=== PATIENT | female | born 1935 | race Caucasian/White ===

== ENCOUNTER 2022-02-07 15:19 | Emergency (ER) | payer MEDICARE ==
--- NOTE | 2022-02-07 16:06 | ERPHSYRPT ---
- History of Present Illness Time Seen by Provider: 02/07/22 15:30 Source: patient Exam Limitations: no limitations Patient Subjective Stated Complaint: Fall Triage Nursing Assessment: Patient brought back to ED per w/c and transferred to bed per self. Patient A+O X3. Patient's skin pink, warm and dry. Patient states she was going down 2 stairs and lost her footing and held onto the porch post and slid down and sat on her buttocks. Patient denies hitting head. Patient complains of right lower back/buttock and leg pain 09/14. No visible bruising or trauma noted. Physician History: Patient 36-year-old female presents to our ED with right posterior hip pain. Patient states she was descending a flight of stairs yesterday. Patient lost her footing held onto the banister and sat herself down onto the right side of her hip. Patient had no pain yesterday however she awoke this morning with soreness to her right posterior hip. Pain described as an ache. No radiation. Pain worse upon weightbearing. Pain improves with rest. Patient took morphine pill at home which is prescribed for her for chronic pain. No BHT or LOC. No neck pain. Cervical spine cleared clinically. Symptoms are mild to moderate in intensity. Patient voices no other complaints or concerns at this time. Portions of this note were created with voice recognition technology. There may be grammatical, spelling, punctuation or sound alike errors Timing/Duration: yesterday Severity: moderate Modifying Factors: Improves With: movement (Pain worse with movement or weightbearing.) Associated Symptoms: denies symptoms Allergies/Adverse Reactions: Penicillins Allergy (Verified 02/07/22 15:34) Hx Influenza Vaccination/Date Given: No Hx Pneumococcal Vaccination/Date Given: No Immunizations Up to Date: Yes Travel Risk - International Travel Have you traveled outside of the country in past 3 weeks: No - Coronavirus Screening Are you exhibiting any of the following symptoms?: No Close contact with a COVID-19 positive Pt in past 14-21 Days: No - Vaccine Status Have you recieved a Covid-19 vaccination: Yes 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 - Vaccination Dates Date of 2cond Vaccination (if applicable): na - Review of Systems Constitutional: No Symptoms, No Fever, No Chills Eyes: No Symptoms Ears, Nose, & Throat: No Symptoms Respiratory: No Symptoms, No Cough, No Dyspnea Cardiac: No Symptoms, No Chest Pain, No Edema, No Syncope Abdominal/Gastrointestinal: No Symptoms, No Abdominal Pain, No Nausea, No Vomiting, No Diarrhea Genitourinary Symptoms: No Symptoms, No Dysuria Musculoskeletal: No Symptoms, No Back Pain, No Neck Pain Skin: No Symptoms, No Rash Neurological: No Symptoms, No Dizziness, No Focal Weakness, No Sensory Changes Psychological: No Symptoms Endocrine: No Symptoms Hematologic/Lymphatic: No Symptoms Immunological/Allergic: No Symptoms All Other Systems: Reviewed and Negative - Past Medical History Neurological History: No Pertinent History Cardiac History: High Cholesterol, Hypertension Respiratory History: No Pertinent History Endocrine Medical History: No Pertinent History Musculoskeletal History: Degenerative Disk Disease, Osteoarthritis Other Medical History: 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 CURRENTLY NO SYMPTOMS. SX HX: HYSTERECTOMY - Social History Smoking Status: Former smoker Exposure to second hand smoke: No Drug Use: none Patient Lives Alone: Yes - Nursing Vital Signs Nursing Vital Signs: Initial Vital Signs Temperature 97.0 F 02/07/22 15:22 Pulse Rate 83 02/07/22 15:22 Respiratory Rate 18 02/07/22 15:22 Blood Pressure 230/107 02/07/22 15:22 O2 Sat by Pulse Oximetry 97 02/07/22 15:22 Pain Scale Pain Intensity 3 - Physical Exam General Appearance: no apparent distress, alert Eye Exam: PERRL/EOMI, eyes nml inspection Ears, Nose, Throat Exam: normal ENT inspection, TMs normal, pharynx normal, moist mucous membranes Neck Exam: normal inspection, non-tender, supple, full range of motion Respiratory Exam: normal breath sounds, lungs clear, airway intact, No respiratory distress Cardiovascular Exam: regular rate/rhythm, normal heart sounds, normal peripheral pulses Gastrointestinal/Abdomen Exam: soft, normal bowel sounds, No tenderness, No mass Back Exam: normal inspection, normal range of motion, No CVA tenderness, No vertebral tenderness Extremity Exam: normal inspection, normal range of motion, pelvis stable, other (Tenderness to palpation right posterior lateral buttock. Right lower extremities neurovascular intact distally. Compartments are soft. Cap refill less than 2 seconds.) Neurologic Exam: alert, oriented x 3, cooperative, normal mood/affect, nml cerebellar function, nml station & gait, sensation nml, No motor deficits Skin Exam: normal color, warm, dry, No rash Lymphatic Exam: No adenopathy SpO2 Interpretation: normal SpO2: 97 O2 Delivery: Room Air - Course Nursing assessment & vital signs reviewed: Yes - Radiology Exams Hip X-ray Interpretation: Interpreted by me (No fractures or dislocations. No soft tissue abnormalities) Ordered Tests: Active Orders 24 hr Category Date Time Status HIP UNI (2V) INCL PEL IF DONE Stat Exams 02/07/22 15:58 Taken - Progress Progress: improved Progress Note: Patient reassessed. Patient resting comfortably. No active pain during reevaluation. X-rays negative for fracture dislocations. No soft tissue abnormalities. Osteopenia observed. Patient agrees to follow-up with within 48 hours for evaluation. Formal radiology read will be performed tomorrow morning. Patient voices no other complaints or concerns at this time. Patient states she is ready for discharge. Portions of this note were created with voice recognition technology. There may be grammatical, spelling, punctuation or sound alike errors 02/07/22 16:57 Counseled pt/family regarding: diagnosis, need for follow-up, rad results - Departure Departure Disposition: Home Clinical Impression: Fall, Right hip pain, Muscle contusion Condition: Stable Critical Care Time: No Referrals: BONIFACIO ELLSWORTH MD [Primary Care Provider] - Follow up/PCP as directed Additional Instructions: Discharge/Care Plan NESSA PEARSON was seen on 02/07/22 in the Emergency Room. The patient was counseled regarding Diagnosis,Lab results, Imaging studies, need for follow up and when to return to the Emergency Room. Prescriptions given: Discharge Note I have spoken with the patient and/or caregivers. I have explained the patient's condition, diagnosis and treatment plan based on the information available to me at this time. I have answered the patient's and/or caregiver's questions and addressed any concerns. The patient and/or caregivers have as good understanding of the patient's diagnosis, condition and treatment plan as can be expected at this point. The vital signs have been stable. The patient's condition is stable and appropriate for discharge from the emergency department. The patient will pursue further outpatient evaluation with the primary care physician or other designated or consulting physician as outlined in the discharge instructions. The patient and/or caregivers are agreeable to this plan of care and follow-up instructions have been explained in detail. The patient and/or caregivers have received these instruction. The patient/and or caregivers are aware that any significant change in condition or worsening of symptoms should prompt an immediate return to this or the closest emergency department or call 911.
--- NOTE | 2022-02-07 16:58 | XRAY ---
Indication: Pain following fall. Comparison: AP pelvis April 12, 2017. AP pelvis and 2 view right hip again demonstrates osteopenia, mild bilateral hip degenerative joint space narrowing, mild lower lumbar degenerative changes, and minimal vascular calcifications. No new/acute bony, articular, or soft tissue abnormalities.
[2022-02-07] MEDS ORDERED: COREG 12.5 MG ONE (17:43)
[2022-02-07 17:53] LABS: Absolute Neutrophil Ct (ANC) 4.23 x10^3/uL (1.4-6.9); Basophil (Absolute #) 0.03 x10^3/uL (0-0.4); Eosinophil % 2.7 % (0.00-5.0); Eosinophil (Absolute #) 0.19 x10^3/uL (0-0.5); Hematocrit 47.5 % (35-47); Hemoglobin 15.5 g/dL (12.0-16.0); Lymphocyte (Absolute #) 2.08 x10^3/uL (1.0-4.6); Lymphocytes % 29.1 % (24.0-44.0); Mean Cell Volume 93.7 fL (78-100); Mean Corpuscular Hemoglobin 30.6 pg (26-32); Mean Corpuscular Hgb Concent. 32.6 g/dL (32-36); Mean Platelet Volume 9.4 fL (7.5-11.0); Monocyte (Absolute #) 0.62 x10^3/uL (0.0-1.3); Monocytes % 8.7 % (0.0-12.0); Platelet Count 194 x10^3/uL (150-450); Red Blood Count 5.07 x10^6/uL (4.1-5.4); Red Cell Distribution Width 14.6 % (11.5-14.0); White Blood Count 7.2 x10^3/uL (4.0-10.5)
[2022-02-07] MEDS ORDERED: COREG 12.5 MG PO ONE (17:57)
[2022-02-07 18:14] LABS: ALBUMIN 3.8 g/dL (3.5-5.0); ALKALINE PHOSPHATASE 88 U/L (38-126); ANION GAP 11.4 MEQ/L (5-15); BLOOD UREA NITROGEN 25 mg/dL (7-17); CHLORIDE 104 mmol/L (98-107); Calcium 8.8 mg/dL (8.4-10.2); Carbon Dioxide 29 mmol/L (22-30); Creatinine 1 0.64 mg/dL (0.52-1.04); EST GLOMERULAR FILTRATION RATE > 60.0 ML/MIN; Glucose 102 mg/dL (74-106); Potassium 4.4 mmol/L (3.5-5.1); SGOT/AST 26 U/L (14-36); SGPT/ALT 18 U/L (0-35); SODIUM 139 mmol/L (137-145); Total Protein 6.9 g/dL (6.3-8.2)
[2022-02-07 19:03] VITALS: BP 180/100; PULSE 74; O2SAT 98
== END 2022-02-07 19:19 | disposition home or self-care (01) ==
LOC: ED 15:19
DX: S70.01XA Contusion of right hip, initial encounter (principal); W10.9XXA Fall (on) (from) unspecified stairs and steps, initial encounter; M25.551 Pain in right hip; E78.5 Hyperlipidemia, unspecified; I10 Essential (primary) hypertension; Z79.891 Long term (current) use of opiate analgesic
CPT/HCPCS: 36415; 73502; 80053; 84484; 85025; 94760; 99283; A9270-GY

== ENCOUNTER 2022-11-05 16:16 | Emergency (ER) | payer MEDICARE ==
--- NOTE | 2022-11-05 16:20 | ERPHSYRPT ---
- History of Present Illness Time Seen by Provider: 11/05/22 16:20 Source: patient, EMS Exam Limitations: no limitations Physician History: This is an 86-year-old white female patient who was brought to the emergency room by the ambulance service. The paramedics provided additional history. Patient states that she just did not lift up her legs enough and ended up tripping and falling onto her face and bilateral knees. Patient does see Dr. Blanc in the pain clinic. Patient is currently on chemotherapy. She denies chest pain she has had no dizziness she did not lose consciousness. Patient has a history of hyperlipidemia, hypertension, degenerative disc disease and chronic low back pain with sciatica. Occurred: just prior to arrival Reason for Fall: tripped Injuries/Pain Location: head, face, lower extremity (Bilateral anterior knees) Loss of Consciousness: no loss of consciousness Severity of Pain-Max: moderate Severity of Pain-Current: moderate Modifying Factors: Improves With: movement Associated Symptoms (Fall): extremity injury (Bilateral anterior knees), No neck pain Allergies/Adverse Reactions: Penicillins Allergy (Verified 11/05/22 16:38) Hx Influenza Vaccination/Date Given: No Hx Pneumococcal Vaccination/Date Given: No Travel Risk - International Travel Have you traveled outside of the country in past 3 weeks: No - Coronavirus Screening Are you exhibiting any of the following symptoms?: No Close contact with a COVID-19 positive Pt in past 14-21 Days: No - Vaccine Status Have you recieved a Covid-19 vaccination: Yes 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 In addition abrasion bilateral anterior knees. 1 cm nasal bridge laceration intact) Neurological: No Symptoms Psychological: No Symptoms Endocrine: No Symptoms Hematologic/Lymphatic: No Symptoms Immunological/Allergic: No Symptoms All Other Systems: Reviewed and Negative - Past Medical History Pertinent Past Medical History: Yes Neurological History: No Pertinent History Cardiac History: High Cholesterol, Hypertension Respiratory History: No Pertinent History Endocrine Medical History: No Pertinent History Musculoskeletal History: Degenerative Disk Disease, Osteoarthritis Other Medical History: 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 CURRENTLY NO SYMPTOMS. SX HX: HYSTERECTOMY - Social History Smoking Status: Former smoker Exposure to second hand smoke: No Drug Use: none Patient Lives Alone: Yes - Nursing Vital Signs Nursing Vital Signs: Initial Vital Signs Temperature 97.7 F 11/05/22 16:34 Pulse Rate 81 11/05/22 16:34 Respiratory Rate 18 11/05/22 16:34 Blood Pressure 203/112 11/05/22 16:34 O2 Sat by Pulse Oximetry 97 11/05/22 16:34 Pain Scale Pain Intensity 5 - [place] Coma Score Best Eye Response (Gabbie): (4) open spontaneously Best Verbal Response ([place]): (5) oriented Best Motor Response ([place]): (6) obeys commands [place] Total: 15 - Physical Exam General Appearance: no apparent distress, alert Head Injury: lacerations (1 cm intact well approximated vertical nasal bridge laceration), tenderness (Areas of abrasion on the forehead nasal bridge and chin abrasion) Eye Exam: PERRL/EOMI, eyes nml inspection ENT Exam: airway nml, other (See above) Neck Exam: supple, trachea midline, full range of motion, normal alignment, normal inspection Respiratory/Chest Exam: normal breath sounds, No chest tenderness, No respiratory distress, No ecchymosis, No crepitus Cardiovascular Exam: normal heart sounds, regular rate/rhythm Gastrointestinal Exam: soft, normal bowel sounds, No tenderness Rectal Exam: not done Back Exam: normal inspection, normal range of motion, No CVA tenderness Extremity Exam: normal range of motion, capillary refill <3 sec, tenderness (Skin abrasions bilateral anterior knees) Neurologic Exam: alert, oriented x 3, cooperative, radio division lieutenant II-XII nml as tested, normal mood/affect, sensation nml Skin Exam: abrasion (See above location and description) SpO2 Interpretation: normal O2 Delivery: Room Air Procedures - Laceration/Wound Repair Face Time of Procedure: 18:56 Wound Location: face Wound Length (cm): 1 Wound's Depth, Shape: linear Wound Explored: clean (No foreign body noted. Evaluation was performed to the base in a bloodless field) Irrigated: Yes Hibiclens Prep: Yes Wound Repaired With: Steri-strips, Dermabond - Course Nursing assessment & vital signs reviewed: Yes Ordered Tests: Active Orders 24 hr Category Date Time Status Wound Care STAT Care 11/05/22 16:45 Active FACIAL BONES WO CONTRAST [CT] Stat Exams 11/05/22 16:43 Taken HEAD WITHOUT CONTRAST [CT] Stat Exams 11/05/22 16:43 Taken KNEE (1 OR 2 VIEW) Stat Exams 11/05/22 16:44 Taken KNEE (1 OR 2 VIEW) Stat Exams 11/05/22 16:44 Taken Medication Summary Discontinued Medications Generic Name Dose Route Start Last Admin Trade Name Liberty PRN Reason Stop Dose Admin Morphine Sulfate 4 mg 11/05/22 18:12 11/05/22 18:20 Morphine Sulfate 4 Mg/Ml Injection IM 11/05/22 18:13 4 mg STAT ONE Administration Morphine Sulfate Confirm 11/05/22 18:17 Morphine Sulfate 4 Mg/Ml Injection Administered 11/05/22 18:18 Dose 4 mg .ROUTE .STK-MED ONE Ondansetron HCl 4 mg 11/05/22 18:12 11/05/22 18:19 Zofran 4 Mg/Udtablet Orally Disintegrating PO 11/05/22 18:13 4 mg STAT ONE Administration Ondansetron HCl Confirm 11/05/22 18:16 Zofran 4 Mg/Udtablet Orally Disintegrating Administered 11/05/22 18:17 Dose 4 mg .ROUTE .STK-MED ONE - Progress Progress: improved, pain not gone completely, re-examined Progress Note: 11/05/22 18:13 X-ray left knee interpreted by me. No acute fracture or dislocation. X-ray right knee interpreted by me. No acute fracture or dislocation. 11/05/22 18:44 CT scan of the head shows no acute intracranial abnormality. There was motion artifact present. CAT scan of the facial bones shows no acute facial bone fractures. 11/05/22 18:53 This patient's level of medical complexity is moderate. This is based on the patient's past medical history, review of medication list, review of medication allergy list, history of present illness and findings on physical examination. She had to have intervention of the nasal laceration. We ordered CAT scan of the head and of the face. We also ordered x-rays of both knees. These were both reviewed and interpreted by me as above. Patient has morphine medication at home. We have provided her with morphine injection here in the hospital. However she can use her outpatient pain medication. We will send a prescription for Keflex home with her and wound care instructions. Counseled pt/family regarding: diagnosis, need for follow-up, rad results Medical Desision Making - Discussion of managment Reviewed:: Test results Agreed on:: Treatment plan, need for follow-up - Diagnostic Testing Diagnostic test were ordered, analyzed, and reviewed by me: Yes Radiological Interpretation: Interpreted by me, Reviewed by me, Teleradiologist Report - Risk of complications The pt has a mod risk of morbidity or mortality based on: Need for prescription drug management - Departure Departure Disposition: Home Clinical Impression: Fall, Nasal laceration, Abrasions of multiple sites Condition: Stable Critical Care Time: No Referrals: BONIFACIO ELLSWORTH MD [Primary Care Provider] - Follow up/PCP as directed Instructions: Contusion (DC), Preventing Falls in Older Adults Additional Instructions: Keep Steri-Strips laceration repair site dry for 24 hours. After 24 hours may wash all the sites daily thereafter. Apply antibiotic ointment of choice to all abrasions sites once a day. Follow-up with your primary care provider for further evaluation and management within the next 5 to 7 days. Prescriptions: Cephalexin Mh 500 mg [Keflex 500 mg] 500 mg PO TID #21 cap
[2022-11-05] MEDS ORDERED: ZOFRAN ODT 4 MG PO ONE (18:12)
[2022-11-05] MEDS ORDERED: MORPHINE SULFATE 4 MG INJ IM ONE (18:12)
[2022-11-05] MEDS ORDERED: ZOFRAN ODT 4 MG ONE (18:16)
[2022-11-05] MEDS ORDERED: MORPHINE SULFATE 4 MG INJ ONE (18:17)
[2022-11-05 18:44] VITALS: BP 154/107; PULSE 76; O2SAT 96
--- NOTE | 2022-11-06 08:29 | XRAY ---
Indication: Status post fall. Multiple contiguous axial images obtained through the head without contrast. Comparison: None Mild motion artifact throughout limits exam. Age-appropriate global atrophy, mild periventricular degenerative micro-ischemia bilaterally, and remote lacunar infarct right basal ganglia. No gross acute intracranial hemorrhage, abnormal extra-axial fluid collection, or mass effect. Fourth ventricle is midline without hydrocephalus. Bony calvarium grossly intact. Visualized paranasal sinuses and mastoid air cells are clear. Impression: Motion artifact. Grossly nonacute senile brain with remote lacunar infarct right basal ganglia.
--- NOTE | 2022-11-06 08:31 | XRAY ---
Indication: Status post fall. Multiple contiguous axial images obtained through the facial bones. Sagittal and coronal reformatted images obtained. Comparison: None Patient is edentulous. Mild left TMJ degenerative changes. No acute fracture, suspicious bony lesions, or right hepatic foreign body. Orbits including roof, lees, and floors are intact. Paranasal sinuses and nasal passages are clear. Visualized noncontrasted soft tissues demonstrates moderate bilateral carotid calcifications. Visualized cervical spine intact with mild multilevel degenerative changes. Impression: Left TMJ and cervical degenerative changes. Remaining CT facial bones negative.
--- NOTE | 2022-11-06 08:33 | XRAY ---
Indication: Status post fall. Comparison: None 2 view left knee demonstrates osteopenia, minimal medial joint space narrowing, tiny patella spurring, tiny nonspecific effusion, anterior soft tissue swelling, and minimal scattered vascular calcifications. No other bony, articular, or soft tissue abnormalities.
--- NOTE | 2022-11-06 08:33 | XRAY ---
Indication: Status post fall. Comparison: None 2 view right knee demonstrates osteopenia, minimal medial joint space narrowing, tiny patella spurring, tiny nonspecific effusion, and mild scattered vascular calcifications. No other bony, articular, or soft tissue abnormalities.
== END 2022-11-05 19:01 | disposition home or self-care (01) ==
LOC: ED 16:16
DX: S01.21XA Laceration without foreign body of nose, initial encounter (principal); S00.81XA Abrasion of other part of head, initial encounter; S80.212A Abrasion, left knee, initial encounter; S80.211A Abrasion, right knee, initial encounter; W01.0XXA Fall on same level from slipping, tripping and stumbling without subsequent striking against object, initial encounter; E78.5 Hyperlipidemia, unspecified; I10 Essential (primary) hypertension; Z79.891 Long term (current) use of opiate analgesic
CPT/HCPCS: 12011; 70450; 70486; 73560; 96372; 99284; J2270; Q0162

== ENCOUNTER 2023-03-05 19:23 | Emergency (ER) | payer MEDICARE ==
[2023-03-05 20:20] VITALS: TEMP 97.6
[2023-03-05] MEDS ORDERED: Sodium Chloride 0.9% 1000 ML 1,000 ML ONE ×2 (21:05→22:15)
[2023-03-05] MEDS: Sodium Chloride 0.9% 1000 ML 1,000 ML IV STA (21:11)
[2023-03-05 21:12] LABS: Absolute Neutrophil Ct (ANC) 1.73 x10^3/uL (1.4-6.9); BASOPHIL % 0.7 % (0.0-0.4); Basophil (Absolute #) 0.03 x10^3/uL (0-0.4); Eosinophil % 6.9 % (0.00-5.0); Hematocrit 41.8 % (35-47); Hemoglobin 13.3 g/dL (12.0-16.0); Lymphocyte (Absolute #) 1.63 x10^3/uL (1.0-4.6); Lymphocytes % 37.6 % (24.0-44.0); Mean Cell Volume 89.1 fL (78-100); Mean Corpuscular Hemoglobin 28.4 pg (26-32); Mean Corpuscular Hgb Concent. 31.8 g/dL (32-36); Mean Platelet Volume 9.3 fL (7.5-11.0); Monocyte (Absolute #) 0.64 x10^3/uL (0.0-1.3); Monocytes % 14.8 % (0.0-12.0); Platelet Count 233 x10^3/uL (150-450); Red Blood Count 4.69 x10^6/uL (4.1-5.4); White Blood Count 4.3 x10^3/uL (4.0-10.5)
[2023-03-05 21:21] LABS: ALBUMIN 3.8 g/dL (3.5-5.0); ALKALINE PHOSPHATASE 67 U/L (38-126); BLOOD UREA NITROGEN 32 mg/dL (7-17); CHLORIDE 98 mmol/L (98-107); Calcium 8.9 mg/dL (8.4-10.2); Carbon Dioxide 27 mmol/L (22-30); Creatinine 1 0.86 mg/dL (0.52-1.04); EST GLOMERULAR FILTRATION RATE > 60.0 ML/MIN; Glucose 103 mg/dL (74-106); Potassium 4.7 mmol/L (3.5-5.1); SGOT/AST 36 U/L (14-36); SGPT/ALT 18 U/L (0-35); SODIUM 135 mmol/L (137-145); Total Protein 6.8 g/dL (6.3-8.2)
--- NOTE | 2023-03-05 21:52 | ERPHSYRPT ---
- History of Present Illness Time Seen by Provider: 03/05/23 20:20 Source: patient Exam Limitations: no limitations Patient Subjective Stated Complaint: Pt accompanied by daughter in law who reports pt is getting immunotherapy every three weeks for bladder cancer and for approx 2 weeks pt has not ate or drank; family is concerned pt is dehydrated. Pt reports nothing taste good and she does not have an appetite. Triage Nursing Assessment: Pt alert and oriented x3. No apparent respiratory distress. Wheeled to ED cot by ER staff and transfered from chair to cot with assist x1. Skin w/p/d. Accompanied to ED exam room by daughter in law. No lower extremity edema. Physician History: Patient is an 87-year-old female with a history of bladder cancer on chemo therapy/immunotherapy every 3 weeks. Presents to our ED for evaluation of dehydration generalized weakness. Patient's family at the bedside. She states that patient has not been eating or drinking well in the past 2 weeks. Patient has been sleeping excessively. Family is concerned that patient may be dehydrated and malnourished. Patient states she just does not have an appetite. Patient states everything tastes bad. Patient denies pain. Symptoms are mild to moderate in intensity. No specific worsening or improving factors. They voiced no other complaints or concerns at this time. Portions of this note were created with voice recognition technology. There may be grammatical, spelling, punctuation or sound alike errors Timing/Duration: week(s) (2 weeks) Severity: moderate Modifying Factors: Improves With: nothing Associated Symptoms: denies symptoms Allergies/Adverse Reactions: Penicillins Allergy (Verified 03/05/23 20:13) ondansetron [From Zofran] Adverse Reaction (Verified 03/05/23 20:13) caused confusion, dizziness, etc. Home Medications: Acetaminophen [Tylenol Arthritis] 2 tab PO Q8H PRN PRN 03/05/23 [History] Aspirin EC 81 mg [Ecotrin 81 mg] 81 mg PO DAILY 03/05/23 [History] Cyanocobalamin 100 Mcg [Vitamin B-12 100 Mcg] 500 mcg PO DAILY 03/05/23 [H istory] Mirabegron [Myrbetriq] 25 mg PO DAILY 03/05/23 [History] Morphine Sulfate Cr 15 mg [Ms Contin 15 MG] 15 mg PO BID 03/05/23 [History] Nabumetone 2 tab PO DAILY 03/05/23 [History] Pembrolizumab [Keytruda] See Rx Instructions .ROUTE .COMPLEX 03/05/23 [History] Solifenacin Succinate [Vesicare] 5 mg PO DAILY 03/05/23 [History] cephALEXin [Cephalexin] 500 mg PO BID 03/05/23 [History] Hx Tetanus, Diphtheria Vaccination/Date Given: No Hx Influenza Vaccination/Date Given: Yes Hx Pneumococcal Vaccination/Date Given: Yes Travel Risk - International Travel Have you traveled outside of the country in past 3 weeks: No - Coronavirus Screening Are you exhibiting any of the following symptoms?: No Close contact with a COVID-19 positive Pt in past 14-21 Days: No - Vaccine Status Have you recieved a Covid-19 vaccination: Yes 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 - Review of Systems Constitutional: No Symptoms, No Fever, No Chills Eyes: No Symptoms Ears, Nose, & Throat: No Symptoms Respiratory: No Symptoms, No Cough, No Dyspnea Cardiac: No Symptoms, No Chest Pain, No Edema, No Syncope Abdominal/Gastrointestinal: No Symptoms, No Abdominal Pain, No Nausea, No Vomiting, No Diarrhea Genitourinary Symptoms: No Symptoms, No Dysuria Musculoskeletal: No Symptoms, No Back Pain, No Neck Pain Skin: No Symptoms, No Rash Neurological: No Symptoms, No Dizziness, No Focal Weakness, No Sensory Changes Psychological: No Symptoms Endocrine: No Symptoms Hematologic/Lymphatic: No Symptoms Immunological/Allergic: No Symptoms All Other Systems: Reviewed and Negative - Past Medical History Pertinent Past Medical History: Yes Neurological History: No Pertinent History Cardiac History: High Cholesterol, Hypertension Respiratory History: No Pertinent History Endocrine Medical History: No Pertinent History Musculoskeletal History: Degenerative Disk Disease, Osteoarthritis History: Bladder Cancer Female Reproductive Disorders: Cervical Cancer Other Medical History: 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 CURRENTLY NO SYMPTOMS. SX HX: HYSTERECTOMY - Past Surgical History Past Surgical History: Yes Female Surgical History: Hysterectomy Other Surgical History: port a cath - Social History Smoking Status: Former smoker Exposure to second hand smoke: No Drug Use: none Patient Lives Alone: Yes - Nursing Vital Signs Nursing Vital Signs: Initial Vital Signs Temperature 97.6 F 03/05/23 20:06 Pulse Rate 82 03/05/23 20:06 Respiratory Rate 17 08/01/23 20:06 Blood Pressure 139/80 03/05/23 20:06 O2 Sat by Pulse Oximetry 93 L 03/05/23 20:06 Pain Scale Pain Intensity 0 - Physical Exam General Appearance: no apparent distress, alert Eye Exam: PERRL/EOMI, eyes nml inspection Ears, Nose, Throat Exam: normal ENT inspection, TMs normal, pharynx normal, moist mucous membranes Neck Exam: normal inspection, non-tender, supple, full range of motion Respiratory Exam: normal breath sounds, lungs clear, airway intact, No respiratory distress Cardiovascular Exam: regular rate/rhythm, normal heart sounds, normal peripheral pulses Gastrointestinal/Abdomen Exam: soft, normal bowel sounds, No tenderness, No mass Back Exam: normal inspection, normal range of motion, No CVA tenderness, No vertebral tenderness Extremity Exam: normal inspection, normal range of motion, pelvis stable Neurologic Exam: alert, oriented x 3, cooperative, normal mood/affect, nml cerebellar function, nml station & gait, sensation nml, No motor deficits Skin Exam: normal color, warm, dry, No rash Lymphatic Exam: No adenopathy SpO2 Interpretation: normal SpO2: 94 O2 Delivery: Room Air - Course Nursing assessment & vital signs reviewed: Yes Ordered Tests: Active Orders 24 hr Category Date Time Status CBC W DIFF Stat Lab 03/05/23 21:00 Completed CMP Stat Lab 03/05/23 21:00 Completed UA W/RFX UR CULTURE Stat Lab 03/05/23 23:20 Completed Medication Summary Generic Name Dose Route Start Last Admin Trade Name Freq PRN Reason Stop Dose Admin Sodium Chloride 1,000 mls @ 150 mls/hr 03/05/23 22:15 03/05/23 22:15 Sodium Chloride 0.9% 1000 Ml IV 04/04/23 22:14 150 mls/hr .[id number] ISABEL Administration Discontinued Medications Generic Name Dose Route Start Last Admin Trade Name Freq PRN Reason Stop Dose Admin Sodium Chloride 1,000 mls @ 999 mls/hr 03/05/23 20:39 03/05/23 22:12 Sodium Chloride 0.9% 1000 Ml IV 03/05/23 21:39 Infused .Q1H1M STA Infusion Sodium Chloride Confirm 03/05/23 21:05 Sodium Chloride 0.9% 1000 Ml Administered 03/05/23 21:06 Dose 1,000 mls @ .[facility] Lab/Rad Data: Laboratory Result Diagrams 03/05/23 21:00 03/05/23 21:00 Laboratory Results 03/05/23 03/05/23 03/05/23 Range/Units 23:20 21:00 21:00 WBC 4.3 (4.0-10.5) x10^3/uL RBC 4.69 (4.1-5.4) x10^6/uL Hgb 13.3 (12.0-16.0) g/dL Hct 41.8 (35-47) % MCV 89.1 (78-100) fL MCH 28.4 (26-32) pg MCHC 31.8 L (32-36) g/dL RDW 16.0 H (11.5-14.0) % Plt Count 233 (150-450) x10^3/uL MPV 9.3 (7.5-11.0) fL Gran % 40.0 (36.0-66.0) % Immature Gran % (Auto) 0.0 (0.00-0.4) % Nucleat RBC Rel Count 0.0 (0.00-0.1) % Eos # (Auto) 0.30 (0-0.5) x10^3/uL Immature Gran # (Auto) 0.00 (0.00-0.03) x10^3u/L Absolute Lymphs (auto) 1.63 (1.0-4.6) x10^3/uL Absolute Monos (auto) 0.64 (0.0-1.3) x10^3/uL Absolute Nucleated RBC 0.00 (0.00-0.01) x10^3u/L Lymphocytes % 37.6 (24.0-44.0) % Monocytes % 14.8 H (0.0-12.0) % Eosinophils % 6.9 H (0.00-5.0) % Basophils % 0.7 (0.0-0.4) % Absolute Granulocytes 1.73 (1.4-6.9) x10^3/uL Basophils # 0.03 (0-0.4) x10^3/uL Sodium 135 L (137-145) mmol/L Potassium 4.7 (3.5-5.1) mmol/L Chloride 98 (98-107) mmol/L Carbon Dioxide 27 (22-30) mmol/L Anion Gap 15.0 (5-15) MEQ/L BUN 32 H (7-17) mg/dL Creatinine 0.86 (0.52-1.04) mg/dL Estimated GFR > 60.0 ML/MIN Glucose 103 (74-106) mg/dL Calcium 8.9 (8.4-10.2) mg/dL Total Bilirubin 1.10 (0.2-1.3) mg/dL AST 36 (14-36) U/L ALT 18 (0-35) U/L Alkaline Phosphatase 67 (38-126) U/L Serum Total Protein 6.8 (6.3-8.2) g/dL Albumin 3.8 (3.5-5.0) g/dL Urine Color Yellow (Yellow) Urine Appearance Clear (Clear) Urine pH 5.0 (4.6-8.0) Ur Specific [place] 1.015 (1.005-1.030) Urine Protein Negative (Negative) Urine Glucose (UA) Negative (Negative) mg/dL Urine Ketones 15 A (Negative) Urine Blood Negative (Negative) Urine Nitrite Negative (Negative) Urine Bilirubin Negative (Negative) Urine Urobilinogen 1.0 A (0.2) mg/dL Ur Leukocyte Esterase Trace A (Negative) U Hyaline Cast (Auto) 3-5 A (0-2) /LPF Urine Microscopic RBC 0-2 (0-5) /HPF Urine Microscopic WBC 3-5 (0-5) /HPF Ur Epithelial Cells Moderate A (None Seen) /HPF Urine Bacteria Rare A (None Seen) /HPF Urine Culture Reflexed NO (NO) - Progress Progress: improved Progress Note: Patient is an 87-year-old female presents to our ED for evaluation of suspected dehydration/possible malnourishment. Patient currently undergoing chemotherapy for bladder cancer. Patient has not eaten very much in the in 2 weeks. Patient has not drank much in 2 weeks. Patient denies pain. Family states patient sleeps more than normal. Patient says she feels well otherwise. Physical exam reveals relatively dry oral mucous membranes. Otherwise negative. CBC CMP essentially within normal limits. Urinalysis negative for UTI. Patient received approximately 1200 cc normal saline while in our ED. Patient feels much better at this point. Patient requesting discharge. Family updated on plan of care. They voiced no other complaints or concerns at this time. Portions of this note were created with voice recognition technology. There may be grammatical, spelling, punctuation or sound alike errors Complexity of problems addressed is moderate acute complicated Complexity of data reviewed and analyzed is moderate. Test ordered. Test reviewed. Clinical correlation made between findings and H&P. Risk of complication and or risk of morbidity/mortality of patient management is low. Patient received IV fluids. No pain medication. No prescriptions. Patient feels well. We will discharge patient home. Patient agrees to follow-up with primary care doctor within 48 hours for reevaluation. Vital stable. Tach to discharge patient approximately 10 minutes. Plan of care established for shared decision making. No social determinants of health presents impede follow-up. Family at bedside. They voiced no other complaints or concerns at this time. Portions of this note were created with voice recognition technology. There may be grammatical, spelling, punctuation or sound alike errors 03/05/23 23:48 Counseled pt/family regarding: lab results, diagnosis, need for follow-up - Departure Departure Disposition: Home Clinical Impression: Dehydration, Fall Condition: Stable Critical Care Time: No Referrals: BONIFACIO ELLSWORTH MD [Primary Care Provider] - Follow up/PCP as directed Additional Instructions: Discharge/Care Plan NESSA PEARSON was seen on 03/05/23 in the Emergency Room. The patient was counseled regarding Diagnosis,Lab results, Imaging studies, need for follow up and when to return to the Emergency Room. Prescriptions given: Discharge Note I have spoken with the patient and/or caregivers. I have explained the patient's condition, diagnosis and treatment plan based on the information available to me at this time. I have answered the patient's and/or caregiver's questions and addressed any concerns. The patient and/or caregivers have as good understanding of the patient's diagnosis, condition and treatment plan as can be expected at this point. The vital signs have been stable. The patient's condition is stable and appropriate for discharge from the emergency department. The patient will pursue further outpatient evaluation with the primary care physician or other designated or consulting physician as outlined in the dis charge instructions. The patient and/or caregivers are agreeable to this plan of care and follow-up instructions have been explained in detail. The patient and/or caregivers have received these instruction. The patient/and or caregivers are aware that any significant change in condition or worsening of symptoms should prompt an immediate return to this or the closest emergency department or call 911.
[2023-03-05] MEDS: Sodium Chloride 0.9% 1000 ML 1,000 ML IV SCH (22:15)
[2023-03-05 23:32] LABS: Appearance Clear (Clear); Bacteria Rare /HPF (None Seen); Bilirubin Negative (Negative); Blood Negative (Negative); Epithelial Cells Moderate /HPF (None Seen); Glucose, Urine Negative (Negative); Ketones 15 (Negative); Leukocyte Esterase Trace (Negative); Nitrite Negative (Negative); Protein,Urine Dip Negative (Negative); RBC 0-2 /HPF (0-5); Specific Gravity 1.015 (1.005-1.030)
[2023-03-05 23:35] LABS: ADD URINE CULTURE? NO (NO)
[2023-03-05 23:50] VITALS: BP 136/77; PULSE 75; RESP 16
[2023-03-05 23:53] VITALS: O2SAT 94
== END 2023-03-06 00:09 | disposition home or self-care (01) ==
LOC: ED 19:23
DX: E86.0 Dehydration (principal); W19.XXXA Unspecified fall, initial encounter; R53.1 Weakness; C67.9 Malignant neoplasm of bladder, unspecified; E78.5 Hyperlipidemia, unspecified; I10 Essential (primary) hypertension; Z79.891 Long term (current) use of opiate analgesic; Z79.899 Other long term (current) drug therapy
CPT/HCPCS: 36000; 36415; 80053; 81001; 85025; 96360; 99284

== ENCOUNTER 2024-04-13 10:04 | Emergency (ER) | payer MEDICARE ==
[2024-04-13 10:30] VITALS: TEMP 97.4
--- NOTE | 2024-04-13 10:40 | ERPHSYRPT ---
- History of Present Illness Time Seen by Provider: 04/13/24 10:34 Source: patient Exam Limitations: no limitations Patient Subjective Stated Complaint: C/O swelling and pain to LLE that she thinks is getting worse instead of better. Triage Nursing Assessment: Patient ambulated back to ER with a cane. She is SOB while ambulating with audible wheezing present. Patient denies being SOB. LLE is red, warm swollen. It is tender when touched but patient denies pain otherwise. Physician History: Left lower leg redness. Has been going on for approximately 1 month. Previously treated with antibiotics. Patient did not finish her course of antibiotics. Therefore saw no improvement. Followed up with her PCP last week who put her on cefdinir. Patient has also had an ultrasound of this leg that was negative for DVT. No falls or other trauma. Per the nurse, patient was wheezy, short of breath on her ambulation back to the room. She is currently not short of breath or wheezing. Allergies/Adverse Reactions: Penicillins Allergy (Verified 04/13/24 10:18) ondansetron [From Zofran] Adverse Reaction (Verified 04/13/24 10:18) caused confusion, dizziness, etc. Home Medications: Aspirin EC 81 mg [Ecotrin 81 mg] 81 mg PO DAILY 03/05/23 [History] Morphine Sulfate Cr 15 mg [Ms Contin 15 MG] 15 mg PO BID 03/05/23 [History] Cefdinir 300 mg PO BID 04/13/24 [History] Hx Tetanus, Diphtheria Vaccination/Date Given: Yes Hx Influenza Vaccination/Date Given: Yes Hx Pneumococcal Vaccination/Date Given: Yes Immunizations Up to Date: Yes Travel Risk - International Travel Have you traveled outside of the country in past 3 weeks: No - Emerging Infectious Disease Are you exhibiting symptoms associated with any current EIDs: Yes Symptoms: Shortness of Breath - Past Medical History Pertinent Past Medical History: Yes Neurological History: No Pertinent History Cardiac History: High Cholesterol, Hypertension Respiratory History: No Pertinent History Endocrine Medical History: No Pertinent History Musculoskeletal History: Degenerative Disk Disease, Osteoarthritis History: Bladder Cancer Female Reproductive Disorders: Cervical Cancer Other Medical History: 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 CURRENTLY NO SYMPTOMS. SX HX: HYSTERECTOMY - Past Surgical History Past Surgical History: Yes Female Surgical History: Hysterectomy Other Surgical History: port a cath - Social History Smoking Status: Former smoker Exposure to second hand smoke: No Drug Use: none Patient Lives Alone: Yes - Social Determinants of Health Will the patient participate in the screening: Yes Do you worry about a steady place to live?: No Do you have any problems with any of the following?: No known problems In the past 12 months,have you had to go without utilities?: No Transportation Issues: No Has anyone in your support network made you feel unsafe?: No Have you or anyone in your house had to go without enough: No - Nursing Vital Signs Nursing Vital Signs: Initial Vital Signs Temperature 97.4 F 04/13/24 10:15 Pulse Rate 96 H 04/13/24 10:15 Respiratory Rate 28 H 04/13/24 10:15 Blood Pressure 157/92 04/13/24 10:15 O2 Sat by Pulse Oximetry 96 04/13/24 10:15 Pain Scale Pain Intensity 0 - Physical Exam SpO2: 96 Comments: 04/13/24 10:38 Review of Systems Constitutional: Negative for fever. HENT: Negative for congestion. Respiratory: Negative for shortness of breath. Cardiovascular: Negative for chest pain. Gastrointestinal: Negative for abdominal pain. Genitourinary: Negative for dysuria. Musculoskeletal: Negative for back pain. Left lower leg redness Skin: Negative for rash. Neurological: Negative for headaches. Psychiatric/Behavioral: Negative for behavioral problems. All other systems reviewed and are negative. Physical Exam Vitals signs and nursing note reviewed. Constitutional: Appearance: Patient is well-developed. HENT: Head: Normocephalic and atraumatic. Eyes: Conjunctiva/sclera: Conjunctivae normal. Neck: Musculoskeletal: Normal range of motion. Trachea: No tracheal deviation. Cardiovascular: Rate and Rhythm: Normal rate. Pulmonary: Effort: Pulmonary effort is normal. No respiratory distress. No wheezes on my exam Abdominal: Palpations: Abdomen is soft. Musculoskeletal: General: No deformity. Left lower leg redness. No obvious deformity, sensation intact, 2+ capillary refill, 2 point tactile discrimination intact. 5 out of 5 strength. Full range of motion without pain. Compartments are soft, nontender. Overlying skin shows no tenting, bruising, ecchymosis. Skin: General: Skin is warm and dry. Neurological/ Psychiatric: Mental Status: Mental status, behavior, interaction with environment is appropriate for patient's age and condition - Course Nursing assessment & vital signs reviewed: Yes EKG Interpreted by Me: Sinus Rhythm Ordered Tests: Active Orders 24 hr Category Date Time Status It Senior Software Engineer Java STAT Care 04/13/24 10:28 Active EKG-ER Only STAT Care 04/13/24 10:27 Active CHEST 2 VIEWS (PA AND LAT) Stat Exams 04/13/24 10:27 Completed VENOUS UNILAT/LIMITED EXTREMIT [US] Stat Exams 04/13/24 11:37 Completed CBC W DIFF Stat Lab 04/13/24 10:40 Completed CK-Creatinine Phosphokinase Stat Lab 04/13/24 10:40 Completed CMP Stat Lab 04/13/24 10:40 Completed D-DIMER QUANTITATIVE Stat Lab 04/13/24 10:40 Completed LIPASE Stat Lab 04/13/24 10:40 Completed NT PRO BNPII Stat Lab 04/13/24 10:40 Completed TROPONIN Q4H Lab 04/13/24 10:40 Completed TROPONIN Q4H Lab 04/13/24 14:30 Ordered TROPONIN Q4H Lab 04/13/24 18:30 Ordered Respiratory Therapy Assessment DAILY RT 04/13/24 11:02 Active Medication Summary Discontinued Medications Generic Name Dose Route Start Last Admin Trade Name Freq PRN Reason Stop Dose Admin Albuterol/Ipratropium 3 ml 04/13/24 10:37 04/13/24 10:59 Ipratropium/Albuterol Sulfate 3 Ml Ampul.Neb IH 04/13/24 10:38 3 ml STAT ONE Administration Albuterol/Ipratropium Confirm 04/13/24 10:43 Ipratropium/Albuterol Sulfate 3 Ml Ampul.Neb Administered 04/13/24 10:44 Dose 3 ml IH .STK-MED ONE Methylprednisolone Sodium 0 mg 04/13/24 10:37 04/13/24 10:45 Succinate 125 mg/ Sterile IV 04/13/24 10:38 125 mg Water 2 ml STAT ONE Administration Clindamycin HCl/Dextrose 600 mg in 50 mls @ 100 mls/hr 04/13/24 10:28 04/13/24 11:36 Clindamycin-D5w 600 Mg/50 Ml IV 04/13/24 10:57 Infused STAT STA Infusion Clindamycin HCl/Dextrose Confirm 04/13/24 11:02 Clindamycin-D5w 600 Mg/50 Ml Administered 04/13/24 11:03 Dose 600 mg in 50 mls @ ud IV .STK-MED ONE Methylprednisolone Sodium Succinate Confirm 04/13/24 10:44 Methylprednis Sod Succ 125 Mg/2 Ml Vial Administered 04/13/24 10:45 Dose 125 mg .ROUTE .STK-MED ONE Sterile Water Confirm 04/13/24 10:43 Water For Injection,Sterile 10 Ml Vial Administered 04/13/24 10:44 Dose 10 ml IJ .STK-MED ONE Lab/Rad Data: Laboratory Result Diagrams 04/13/24 10:40 04/13/24 10:40 Laboratory Results 04/13/24 04/13/24 04/13/24 Range/Units 10:55 10:40 10:40 WBC (3.98-10.04) x10^3/uL RBC (3.93-5.22) x10^6/uL Hgb (11.2-15.7) g/dL Hct (34.1-44.9) % MCV (79.4-94.8) fL MCH (25.6-32.2) pg MCHC (32.2-35.5) g/dL RDW (11.7-14.4) % Plt Count (182-369) x10^3/uL MPV (9.4-12.3) fL Gran % (34.0-71.1) % Immature Gran % (Auto) (0.001-0.429) % Nucleat RBC Rel Count (0.00-0.2) % Eos # (Auto) (0.04-0.36) x10^3/uL Immature Gran # (Auto) (0.001-0.031) x10^3u/L Absolute Lymphs (auto) (1.18-3.74) x10^3/uL Absolute Monos (auto) (0.24-0.86) x10^3/uL Absolute Nucleated RBC (0.00-0.012) x10^3u/L Lymphocytes % (19.3-51.7) % Monocytes % (4.7-12.5) % Eosinophils % (0.7-5.8) % Basophils % (0.1-1.2) % Absolute Granulocytes (1.56-6.13) x10^3/uL Basophils # (0.01-0.08) x10^3/uL D-Dimer 2.11 H* (0.0-0.50) mg/L Sodium (135-145) mmol/L Potassium (3.5-5.1) mmol/L Chloride (98-107) mmol/L Carbon Dioxide (22-30) mmol/L Anion Gap (5-15) MEQ/L BUN (7-17) mg/dL Creatinine (0.52-1.04) mg/dL Estimated GFR ML/MIN Glucose (74-106) mg/dL Calcium (8.4-10.2) mg/dL Total Bilirubin (0.2-1.3) mg/dL AST (14-36) U/L ALT (0-35) U/L Alkaline Phosphatase (38-126) U/L Creatine Kinase (30-135) U/L Troponin I < 0.012 (0.000-0.033) ng/mL NT-Pro-B Natriuret Pep (<300) pg/mL Serum Total Protein (6.3-8.2) g/dL Albumin (3.5-5.0) g/dL Lipase (23-300) U/L Influenza Type A Ag NEGATIVE (NEGATIVE) Influenza Type B Ag NEGATIVE (NEGATIVE) RSV (PCR) NEGATIVE (NEGATIVE) SARS-CoV-2 (PCR) NEGATIVE (NEGATIVE) 04/13/24 04/13/24 Range/Units 10:40 10:40 WBC 4.9 (3.98-10.04) x10^3/uL RBC 4.33 (3.93-5.22) x10^6/uL Hgb 13.1 (11.2-15.7) g/dL Hct 40.7 (34.1-44.9) % MCV 94.0 (79.4-94.8) fL MCH 30.3 (25.6-32.2) pg MCHC 32.2 (32.2-35.5) g/dL RDW 13.7 (11.7-14.4) % Plt Count 209 (182-369) x10^3/uL MPV 9.6 (9.4-12.3) fL Gran % 51.3 (34.0-71.1) % Immature Gran % (Auto) 0.2 (0.001-0.429) % Nucleat RBC Rel Count 0.0 (0.00-0.2) % Eos # (Auto) 0.08 (0.04-0.36) x10^3/uL Immature Gran # (Auto) 0.01 (0.001-0.031) x10^3u/L Absolute Lymphs (auto) 1.82 (1.18-3.74) x10^3/uL Absolute Monos (auto) 0.44 (0.24-0.86) x10^3/uL Absolute Nucleated RBC 0.00 (0.00-0.012) x10^3u/L Lymphocytes % 37.3 (19.3-51.7) % Monocytes % 9.0 (4.7-12.5) % Eosinophils % 1.6 (0.7-5.8) % Basophils % 0.6 (0.1-1.2) % Absolute Granulocytes 2.50 (1.56-6.13) x10^3/uL Basophils # 0.03 (0.01-0.08) x10^3/uL D-Dimer (0.0-0.50) mg/L Sodium 139 (135-145) mmol/L Potassium 3.8 (3.5-5.1) mmol/L Chloride 101 (98-107) mmol/L Carbon Dioxide 29 (22-30) mmol/L Anion Gap 12.0 (5-15) MEQ/L BUN 25 H (7-17) mg/dL Creatinine 0.95 (0.52-1.04) mg/dL Estimated GFR 57.3 ML/MIN Glucose 142 H (74-106) mg/dL Calcium 9.4 (8.4-10.2) mg/dL Total Bilirubin 0.60 (0.2-1.3) mg/dL AST 24 (14-36) U/L ALT 19 (0-35) U/L Alkaline Phosphatase 62 (38-126) U/L Creatine Kinase 68 (30-135) U/L Troponin I (0.000-0.033) ng/mL NT-Pro-B Natriuret Pep 794 (<300) pg/mL Serum Total Protein 6.7 (6.3-8.2) g/dL Albumin 3.9 (3.5-5.0) g/dL Lipase 27 (23-300) U/L Influenza Type A Ag (NEGATIVE) Influenza Type B Ag (NEGATIVE) RSV (PCR) (NEGATIVE) SARS-CoV-2 (PCR) (NEGATIVE) - Progress Progress: improved Progress Note: 04/13/24 10:39 Differential diagnosis includes cellulitis, DVT, acute bronchitis, ACS, other cardiac issue. Differential diagnosis includes: PNA, STEMI, NSTEMI, other infection, musculoskeletal pain, pneumothorax - We'll obtain basic labs, fluids, EKG, troponin, chest x-ray - EKG shows no ST changes - my read - O2 saturations consistently greater than 95%. - CXR shows no pneumonia, pneumothorax - my read Will obtain D-dimer looking for potential DVT in left lower leg. 04/13/24 13:14 DVT ultrasound is negative. No signs of a pulmonary embolism on physical exam. Patient's breathing improved with breathing treatments as above. I do believe that left lower leg issue is cellulitis that has not improved. Will change patient's antibiotic to doxycycline. She should follow-up closely with her [facility] physician in 2 to 3 days for repeat check. She may return here sooner for any new or changing symptoms. Counseled pt/family regarding: lab results, diagnosis, need for follow-up, rad results - Departure Departure Disposition: Home Clinical Impression: Left leg cellulitis Condition: Stable Critical Care Time: No Referrals: BONIFACIO ELLSWORTH MD [Primary Care Provider] - Follow up/PCP as directed Instructions: Cellulitis and erysipelas (skin infections) Prescriptions: Doxycycline Hyclate 100 mg [Vibramycin 100 MG] 100 mg PO BID 10 Days #20 tab
[2024-04-13] MEDS ORDERED: DUONEB 0.5-3 MG/3 ml Neb IH ONE (10:43)
[2024-04-13] MEDS ORDERED: Sterile H2O 10 ml IJ ONE (10:43)
[2024-04-13] MEDS ORDERED: solu-MEDROL ONE (10:44)
[2024-04-13] MEDS: solu-MEDROL 125 MG, Sterile H2O 10 ml 2 ML IV ONE (10:45)
[2024-04-13] MEDS: DUONEB 0.5-3 MG/3 ml Neb IH ONE (10:59)
[2024-04-13] MEDS ORDERED: CLINDAMYCIN-D5W 600 MG/50 ML*** 600 MG/50 ML BAG IV ONE (11:02)
[2024-04-13] MEDS: CLINDAMYCIN-D5W 600 MG/50 ML*** 600 MG/50 ML BAG IV STA (11:02)
[2024-04-13 11:04] LABS: BASOPHIL % 0.6 % (0.1-1.2); Basophil (Absolute #) 0.03 x10^3/uL (0.01-0.08); Eosinophil % 1.6 % (0.7-5.8); Eosinophil (Absolute #) 0.08 x10^3/uL (0.04-0.36); Hematocrit 40.7 % (34.1-44.9); Hemoglobin 13.1 g/dL (11.2-15.7); IMMATURE GRAN # 0.01 x10^3u/L (0.001-0.031); IMMATURE GRAN % 0.2 % (0.001-0.429); Lymphocyte (Absolute #) 1.82 x10^3/uL (1.18-3.74); Lymphocytes % 37.3 % (19.3-51.7); Mean Corpuscular Hemoglobin 30.3 pg (25.6-32.2); Mean Corpuscular Hgb Concent. 32.2 g/dL (32.2-35.5); Mean Platelet Volume 9.6 fL (9.4-12.3); Monocyte (Absolute #) 0.44 x10^3/uL (0.24-0.86); Neutrophil % 51.3 % (34.0-71.1); Platelet Count 209 x10^3/uL (182-369); Red Blood Count 4.33 x10^6/uL (3.93-5.22); Red Cell Distribution Width 13.7 % (11.7-14.4); White Blood Count 4.9 x10^3/uL (3.98-10.04)
[2024-04-13 11:26] LABS: ALBUMIN 3.9 g/dL (3.5-5.0); BILIRUBIN,TOTAL 0.6 mg/dL (0.2-1.3); Calcium 9.4 mg/dL (8.4-10.2); Creatinine 1 0.95 mg/dL (0.52-1.04); EST GLOMERULAR FILTRATION RATE 57.3 ML/MIN; Potassium 3.8 mmol/L (3.5-5.1); Total Protein 6.7 g/dL (6.3-8.2)
--- NOTE | 2024-04-13 11:39 | XRAY ---
Indication: Finding overload. Pneumonia. Comparison: September 29, 2007 PA/lateral chest less inflated with new mild left mid to lower lung discoid atelectasis/scarring. Remaining lungs clear. Heart not enlarged with arteriosclerotic and tortuous descending aorta. New right Port-A-Cath. Bony thorax demonstrates osteopenia, mild degenerative changes, and mild double curvature scoliosis. New remote T11 compression fracture with approximately 50% height loss and remote L2 superior endplate fracture with less than 25% height loss. Impression: Nonacute chest with chronic features.
[2024-04-13 11:47] LABS: INFLUENZA A NEGATIVE (NEGATIVE); INFLUENZA B NEGATIVE (NEGATIVE); RESPIRATORY SYNCTIAL VIRUS NEGATIVE (NEGATIVE); SARS-CoV-2 Xpert Express NEGATIVE (NEGATIVE)
--- NOTE | 2024-04-13 12:39 | XRAY ---
Indication: DVT. Erythema. Elevated d-dimer. Two-dimensional sonogram and color Doppler imaging major venous vessels left leg performed. Comparison: December 23, 2023 No thrombus seen in the examined deep venous vessels left leg including greater saphenous vein. Veins demonstrate normal compressibility. Venous waveforms are normal with and without augmentation. Impression: Left leg continues to be negative for DVT.
[2024-04-13 13:08] VITALS: BP 147/78; PULSE 87; RESP 19
[2024-04-13 13:13] VITALS: O2SAT 96
== END 2024-04-13 13:30 | disposition home or self-care (01) ==
LOC: ED 10:04
DX: L03.116 Cellulitis of left lower limb (principal); E78.5 Hyperlipidemia, unspecified; I10 Essential (primary) hypertension; Z79.899 Other long term (current) drug therapy
CPT/HCPCS: 0241U; 36000; 36415; 71046; 80053; 82550; 83690; 83880; 84484; 85025; 85379; 93005; 93041; 93971; 94640; 96365; 96374; 99284; J2919; A9270-GY

== ENCOUNTER 2024-08-23 09:33 | Observation (INO) | payer MEDICARE ==
--- NOTE | 2024-08-23 09:42 | ERPHSYRPT ---
- History of Present Illness Time Seen by Provider: 08/23/24 09:41 Source: patient, family Exam Limitations: no limitations Physician History: Pt started passing blood from rectum - bright red and came to ER. Has vomiting without blood or coffee grounds, LLQ tenderness on exam without peritoneal signs or masses - no pain at rest. No blood thinners other than daily ASA. Former smoker, denies COPD requiring Tx and has no CP or SObreath. Discussed with pt and available family risks and benefits of testing/Tx including IV, CBC, CMP,UA, Amylase, Lipase, lactate, CT Abd, and they wish to proceed so these are ordered. Results discussed with pt and available family. is in ER as independent source for Hx confirmation. Discussed risk/limitation of compazine IM and pt wishes to continue with this Tx for nausea/vomiting ( had prior rxn to zofran). Timing/Duration: today Severity: moderate Modifying Factors: Improves With: nothing Associated Symptoms: nausea, vomiting, other (BRBPR) Allergies/Adverse Reactions: Penicillins Allergy (Verified 08/23/24 09:47) ondansetron [From Zofran] Adverse Reaction (Verified 08/23/24 09:47) caused confusion, dizziness, etc. Home Medications: Aspirin EC 81 mg [Ecotrin 81 mg] 81 mg PO DAILY 03/05/23 [History] Morphine Sulfate Cr 15 mg [Ms Contin 15 MG] 15 mg PO BID 03/05/23 [History] Cefdinir 300 mg PO BID 04/13/24 [History] Hx Tetanus, Diphtheria Vaccination/Date Given: Yes Hx Influenza Vaccination/Date Given: Yes Hx Pneumococcal Vaccination/Date Given: Yes Travel Risk - Emerging Infectious Disease Are you exhibiting symptoms associated with any current EIDs: Yes Symptoms: Shortness of Breath - Review of Systems Constitutional: No Fever, No Chills Eyes: No Symptoms Ears, Nose, & Throat: No Symptoms Respiratory: No Cough, No Dyspnea Cardiac: No Chest Pain, No Edema, No Syncope Abdominal/Gastrointestinal: Nausea, Vomiting, Other (BRBPR), No Abdominal Pain, No Diarrhea Genitourinary Symptoms: No Dysuria Musculoskeletal: Other (chronic DJD pain), No Back Pain, No Neck Pain Skin: No Rash Neurological: No Dizziness, No Focal Weakness, No Sensory Changes Psychological: No Symptoms Endocrine: No Symptoms Hematologic/Lymphatic: No Symptoms Immunological/Allergic: No Symptoms All Other Systems: Reviewed and Negative - Past Medical History Pertinent Past Medical History: Yes Neurological History: No Pertinent History Cardiac History: High Cholesterol, Hypertension Respiratory History: No Pertinent History Endocrine Medical History: No Pertinent History Musculoskeletal History: Degenerative Disk Disease, Osteoarthritis History: Bladder Cancer Female Reproductive Disorders: Cervical Cancer Other Medical History: 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 CURRENTLY NO SYMPTOMS. SX HX: HYSTERECTOMY - Past Surgical History Past Surgical History: Yes Female Surgical History: Hysterectomy Other Surgical History: port a cath - Social History Smoking Status: Former smoker Exposure to second hand smoke: No Drug Use: none Patient Lives Alone: Yes - Social Determinants of Health Will the patient participate in the screening: Yes Do you worry about a steady place to live?: No In the past 12 months,have you had to go without utilities?: No Transportation Issues: No Has anyone in your support network made you feel unsafe?: No Have you or anyone in your house had to go without enough: No - Nursing Vital Signs Nursing Vital Signs: Initial Vital Signs Pulse Rate 118 H 08/23/24 09:46 Respiratory Rate 26 H 08/23/24 09:46 Blood Pressure 150/101 08/23/24 09:46 O2 Sat by Pulse Oximetry 93 L 08/23/24 09:46 Pain Scale Pain Intensity 0 - Physical Exam General Appearance: no apparent distress, alert Eye Exam: PERRL/EOMI, eyes nml inspection Ears, Nose, Throat Exam: normal ENT inspection, TMs normal, pharynx normal, moist mucous membranes Neck Exam: normal inspection, non-tender, supple, full range of motion Respiratory Exam: normal breath sounds, lungs clear, No respiratory distress Cardiovascular Exam: regular rate/rhythm, normal heart sounds, normal peripheral pulses Gastrointestinal/Abdomen Exam: soft, normal bowel sounds, tenderness (LLQ), guarding, No distention, No mass, No pulsatile mass, No rebound Pelvic Exam: deferred Rectal Exam: deferred Back Exam: normal inspection, normal range of motion, No CVA tenderness, No vertebral tenderness Extremity Exam: normal inspection, normal range of motion, pelvis stable Neurologic Exam: alert, oriented x 3, cooperative, normal mood/affect, nml cerebellar function, nml station & gait, sensation nml, No motor deficits Skin Exam: normal color, warm, dry, No rash Lymphatic Exam: No adenopathy SpO2 Interpretation: borderline oxygenation SpO2: 93 O2 Delivery: Room Air - Course Nursing assessment & vital signs reviewed: Yes - CT Exams Abdomen/Pelvis CT Interpretation: Tele-radiologist Report, Other (left adrenal mass and left colon fluid and diverticula) Ordered Tests: Active Orders 24 hr Category Date Time Status IV Insertion STAT Care 08/23/24 10:05 Active ABDOMEN AND PELVIS W/0 CONTRAS [CT] Stat Exams 08/23/24 10:30 Completed AMYLASE Stat Lab 08/23/24 10:20 Completed CBC W DIFF Stat Lab 08/23/24 10:20 Completed CMP Stat Lab 08/23/24 10:20 Completed LIPASE Stat Lab 08/23/24 10:20 Completed UA W/RFX UR CULTURE Stat Lab 08/23/24 10:05 Ordered Medication Summary Discontinued Medications Generic Name Dose Route Start Last Admin Trade Name Freq PRN Reason Stop Dose Admin Prochlorperazine Edisylate 10 mg 08/23/24 10:05 08/23/24 10:11 Prochlorperazine Edisylate 10 Mg/2 Ml Vial IM 08/23/24 10:06 10 mg STAT ONE Administration Prochlorperazine Edisylate Confirm 08/23/24 10:09 Prochlorperazine Edisylate 10 Mg/2 Ml Vial Administered 08/23/24 10:10 Dose 10 mg .ROUTE .STK-MED ONE Lab/Rad Data: Laboratory Result Diagrams 08/23/24 10:20 08/23/24 10:20 Laboratory Results 08/23/24 08/23/24 Range/Units 10:20 10:20 WBC 11.4 H (3.98-10.04) x10^3/uL RBC 5.23 H (3.93-5.22) x10^6/uL Hgb 15.2 (11.2-15.7) g/dL Hct 47.2 H (34.1-44.9) % MCV 90.2 (79.4-94.8) fL MCH 29.1 (25.6-32.2) pg MCHC 32.2 (32.2-35.5) g/dL RDW 14.0 (11.7-14.4) % Plt Count 160 L (182-369) x10^3/uL MPV 9.4 (9.4-12.3) fL Gran % 77.3 H (34.0-71.1) % Immature Gran % (Auto) 0.4 (0.001-0.429) % Nucleat RBC Rel Count 0.0 (0.00-0.2) % Eos # (Auto) 0.06 (0.04-0.36) x10^3/uL Immature Gran # (Auto) 0.05 H (0.001-0.031) x10^3u/L Absolute Lymphs (auto) 1.57 (1.18-3.74) x10^3/uL Absolute Monos (auto) 0.90 H (0.24-0.86) x10^3/uL Absolute Nucleated RBC 0.00 (0.00-0.012) x10^3u/L Lymphocytes % 13.7 L (19.3-51.7) % Monocytes % 7.9 (4.7-12.5) % Eosinophils % 0.5 L (0.7-5.8) % Basophils % 0.2 (0.1-1.2) % Absolute Granulocytes 8.82 H (1.56-6.13) x10^3/uL Basophils # 0.02 (0.01-0.08) x10^3/uL Sodium 137 (135-145) mmol/L Potassium 3.8 (3.5-5.1) mmol/L Chloride 104 (98-107) mmol/L Carbon Dioxide 24 (22-30) mmol/L Anion Gap 12.3 (5-15) MEQ/L BUN 30 H (7-17) mg/dL Creatinine 0.95 (0.52-1.04) mg/dL Estimated GFR 57.3 ML/MIN Glucose 150 H (74-106) mg/dL Calcium 9.6 (8.4-10.2) mg/dL Total Bilirubin 1.20 (0.2-1.3) mg/dL AST 25 (14-36) U/L ALT 16 (0-35) U/L Alkaline Phosphatase 69 (38-126) U/L Serum Total Protein 6.8 (6.3-8.2) g/dL Albumin 4.1 (3.5-5.0) g/dL Amylase 42 (30-110) U/L Lipase 17 L (23-300) U/L - Progress Progress: improved, re-examined Progress Note: 08/23/24 12:14 Discussed with the hospitalist Dr. Cloud and pt and family and all agree best to place pt in on obs for bleeding diverticula. Discussed with Dr.: Other (Dr. Cloud) Will see patient in: hospital (observation) Counseled pt/family regarding: lab results, diagnosis, need for follow-up, rad results Medical Desision Making - Independent Historian Additional History obtained from: Family - Discussion of managment Care discussed with:: hospitalist Reviewed:: Test results, Need for additional workup Agreed on:: Treatment plan, need for follow-up, decision to admit, place in obs Will see patient: in hospital - Diagnostic Testing Diagnostic test were ordered, analyzed, and reviewed by me: Yes Radiological Interpretation: Teleradiologist Report - Risk of complications The pt has a mod risk of morbidity or mortality based on: Need for prescription drug management The pt has a high risk of morbidity or mortality based on: Decision regarding hospitilization or escalation of hosp level of care - Departure Departure Disposition: Observation Clinical Impression: colonic diverticula with bleeding Condition: Good Critical Care Time: No Referrals: BONIFACIO ELLSWORTH MD [Primary Care Provider] - Follow up/PCP as directed Instructions: Gastrointestinal Bleeding (DC)
[2024-08-23] MEDS ORDERED: Compazine 10 MG/2 ML ONE (10:09)
[2024-08-23] MEDS: Compazine 10 MG/2 ML IM ONE (10:11)
[2024-08-23 10:26] LABS: Absolute Neutrophil Ct (ANC) 8.82 x10^3/uL (1.56-6.13); BASOPHIL % 0.2 % (0.1-1.2); Basophil (Absolute #) 0.02 x10^3/uL (0.01-0.08); Eosinophil % 0.5 % (0.7-5.8); Eosinophil (Absolute #) 0.06 x10^3/uL (0.04-0.36); Hematocrit 47.2 % (34.1-44.9); Hemoglobin 15.2 g/dL (11.2-15.7); IMMATURE GRAN # 0.05 x10^3u/L (0.001-0.031); IMMATURE GRAN % 0.4 % (0.001-0.429); Lymphocyte (Absolute #) 1.57 x10^3/uL (1.18-3.74); Lymphocytes % 13.7 % (19.3-51.7); Mean Cell Volume 90.2 fL (79.4-94.8); Mean Corpuscular Hemoglobin 29.1 pg (25.6-32.2); Mean Corpuscular Hgb Concent. 32.2 g/dL (32.2-35.5); Mean Platelet Volume 9.4 fL (9.4-12.3); Monocytes % 7.9 % (4.7-12.5); Neutrophil % 77.3 % (34.0-71.1); Platelet Count 160 x10^3/uL (182-369); Red Blood Count 5.23 x10^6/uL (3.93-5.22); White Blood Count 11.4 x10^3/uL (3.98-10.04)
[2024-08-23 10:37] LABS: ALBUMIN 4.1 g/dL (3.5-5.0); ANION GAP 12.3 MEQ/L (5-15); BILIRUBIN,TOTAL 1.2 mg/dL (0.2-1.3); Calcium 9.6 mg/dL (8.4-10.2); Creatinine 1 0.95 mg/dL (0.52-1.04); EST GLOMERULAR FILTRATION RATE 57.3 ML/MIN; Potassium 3.8 mmol/L (3.5-5.1); Total Protein 6.8 g/dL (6.3-8.2)
--- NOTE | 2024-08-23 11:47 | XRAY ---
CLINICAL HISTORY: LLQ tenderness with rectal bleeding COMPARISON: 08/09/2022. TECHNIQUE: Non-contrast CT of the abdomen and pelvis was performed, with the following protocol: axial images, and reconstructed coronal and sagittal images. No intravenous contrast was administered. One of the following dose reduction techniques was utilized for this exam: Automated exposure control, adjustment of the mA and/or kV according to patient size, and use of iterative reconstruction. CTDI 14.6, total DLP 674.79 mGy.cm FINDINGS: Lung: Bilateral basal atelectasis Abdomen: Liver: Normal in size, shape, and density. Mutliple small bilobar calcific foci/granulomas Gallbladder and Biliary System: The gallbladder is normal in size and shape. No wall thickening, pericholecystic fluid, or gallstones were identified. Relatively prominent CBD measuring up to 9 mm (accepted for patient's age) Pancreas: Pancreatic head, body, and tail are visualized and appear normal in size and density. No pancreatic masses or calcifications were noted. Spleen: Normal in size, shape, and density. Mutliple small calcific foci/granulomas. Kidneys and Adrenal Glands: Both kidneys are normal in size, shape, and position. Cortical thickness is within normal limits. No renal calculi or hydronephrosis. Right renal mid pole cyst measuring 17 mm Right adrenal gland is unremarkable. Left adrenal irregular shaped soft tissue lesion measuring 48 x 43 mm with tiny calcific foci and small macroscopic fat focus at its inferior aspect Appendix: The appendix is normal in size without kylah appendiceal fat stranding, and without an appendicolith. No evidence of appendiceal abscess or perforation. Pelvis: Urinary Bladder: Normal in contour and wall thickness. No intraluminal lesions. Uterus: surgically removed Adnexa: No masses Peritoneal and Retroperitoneal Structures: No free fluid or abnormal fluid collections were identified within the abdomen or pelvis. No lymphadenopathy was noted. Aortoiliac atherosclerotic calcifications Bowel: Hiatus hernia Fluid filled distended descending and sigmoid colon down to the rectosigmoid junction with mild mural thickening showing multiple small colonic diverticulae along their course. Stranding and smudging of the regional pericolic fat planes noted. No evidence of bowel obstruction Bones and Soft Tissues: Lumbar spondylodegenerative changes with levoconvex scoliosis showing T12 and L3 ventral wedge compression deformities Bilateral facetal arthropathies Bilateral sacroiliitis IMPRESSION: 1. Fluid filled distended descending and sigmoid colon down to the rectosigmoid junction with mild mural thickening showing multiple small colonic diverticulae along their course. Stranding and smudging of the regional pericolic fat planes. Appearance is concerning for infectious/inflammatory diverticulitis, new finding. The possibility of complicated diverticular disease cannot be excluded. Clinical and laboratory correlation is advised. 2. Hiatus hernia, stable. 3. Mutliple hepatic and splenic calcific foci/granulomas, stable. 4. 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 5. Right renal midpole cyst, stable. 6. Bilateral basal atelectasis, stable. Electronically Signed by: Geraldo Amador MD. (08/23/2024 11:44:10 EST)
--- NOTE | 2024-08-23 13:20 | PCM.HP ---
History of Present Illness - Chief Complaint Chief Complaint: GI bleed, Diverticulitis Date: 08/23/24 History of Present Illness: is a 88 year old female with PMHX of HTN, Hyperlipidemia, DJD, OA, bladder cancer, and cervical cancer. Pt was seen in the ER today as she started passing blood from rectum - bright red. She reports she has been vomiting without blood or coffee grounds. She started having diarrhea last night. + LLQ tenderness on exam without peritoneal signs or masses - no pain at rest. CT abd/pelvis shows diverticulitis. IP will start IV antibiotics, PPI BID, IV fluids, antiemetic, and IV pain meds PRN. Will place pt NPO for now. Pt denies CP, SOB. - Review of Systems Constitutional: No Fever, No Chills Eyes: No Symptoms Ears, Nose, & Throat: No Symptoms Respiratory: No Cough, No Short Of Breath Cardiac: No Chest Pain, No Edema, No Syncope Abdominal/Gastrointestinal: Abdominal Pain, Nausea, Vomiting, Diarrhea, Hematochezia Genitourinary Symptoms: No Dysuria Musculoskeletal: No Back Pain, No Neck Pain Skin: No Rash Neurological: No Dizziness, No Focal Weakness, No Sensory Changes Psychological: No Symptoms Endocrine: No Symptoms Hematologic/Lymphatic: No Symptoms Immunological/Allergic: No Symptoms Medications & Allergies Home Medications: Home Medication List Unobtainable 08/23/24 [History Confirmed 08/23/24] Allergies/Adverse Reactions: Allergies Allergy/AdvReac Type Severity Reaction Status Date / Time Penicillins Allergy Verified 08/23/24 09:47 ondansetron [From Zofran] AdvReac Verified 08/23/24 09:47 - Past Medical History Past Medical History: Yes Neurological History: No Pertinent History Cardiac History: High Cholesterol, Hypertension Respiratory History: No Pertinent History Endocrine Medical History: No Pertinent History Musculoskelatal History: Degenerative Disk Disease, Osteoarthritis History: Bladder Cancer Reproductive Disorders: Cervical Cancer Comment: 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 CURRENTLY NO SYMPTOMS. SX HX: HYSTERECTOMY - Past Surgical History Past Surgical History: Yes Female Surgical History: Hysterectomy Other Surgical History: port a cath Significant Family History: no pertinent family hx - Social History Smoking Status: Former smoker Exposure to second hand smoke: No Alcohol: None Drug Use: none - Social Determinants of Health Will the patient participate in the screening: Yes Do you worry about a steady place to live?: No Do you have any problems with any of the following?: No known problems In the past 12 months,have you had to go without utilities?: No Have you or anyone in your house had to go without enough: No Transportation Issues: No Has anyone in your support network made you feel unsafe?: No - Physical Exam Vital Signs: Vital Signs - 24 hr Pulse Resp BP BP Pulse Ox 08/23/24 12:30 146/92 08/23/24 12:17 93 L 08/23/24 12:00 103 H 23 121/91 95 08/23/24 11:35 98 H 21 175/95 94 L 08/23/24 11:00 100 H 23 125/81 93 L 08/23/24 10:38 110 H 15 133/78 93 L 08/23/24 10:37 108 H 14 94 L 08/23/24 10:36 94 L 08/23/24 10:00 108 H 26 H 136/92 94 L 08/23/24 09:46 118 H 26 H 150/101 93 L General Appearance: no apparent distress, alert Neurologic Exam: alert, oriented x 3, cooperative, normal mood/affect, nml cerebellar function, nml station & gait, sensation nml, No motor deficits Eye Exam: PERRL/EOMI, eyes nml inspection Ears, Nose, Throat Exam: normal ENT inspection, TMs normal, pharynx normal, moist mucous membranes Neck Exam: normal inspection, non-tender, supple, full range of motion Respiratory Exam: normal breath sounds, lungs clear, No respiratory distress Cardiovascular Exam: regular rate/rhythm, normal heart sounds, normal peripheral pulses Gastrointestinal/Abdomen Exam: soft, normal bowel sounds, tenderness (LLQ), No mass Back Exam: normal inspection, normal range of motion, No CVA tenderness, No vertebral tenderness Extremity Exam: normal inspection, normal range of motion, pelvis stable Skin Exam: normal color, warm, dry, No rash Lymphatic Exam: No adenopathy Results - Labs Lab/Micro Results: Lab Results-Last 24 Hours 08/23/24 08/23/24 Range/Units 10:20 10:20 WBC 11.4 H (3.98-10.04) x10^3/uL RBC 5.23 H (3.93-5.22) x10^6/uL Hgb 15.2 (11.2-15.7) g/dL Hct 47.2 H (34.1-44.9) % MCV 90.2 (79.4-94.8) fL MCH 29.1 (25.6-32.2) pg MCHC 32.2 (32.2-35.5) g/dL RDW 14.0 (11.7-14.4) % Plt Count 160 L (182-369) x10^3/uL MPV 9.4 (9.4-12.3) fL Gran % 77.3 H (34.0-71.1) % Immature Gran % (Auto) 0.4 (0.001-0.429) % Nucleat RBC Rel Count 0.0 (0.00-0.2) % Eos # (Auto) 0.06 (0.04-0.36) x10^3/uL Immature Gran # (Auto) 0.05 H (0.001-0.031) x10^3u/L Absolute Lymphs (auto) 1.57 (1.18-3.74) x10^3/uL Absolute Monos (auto) 0.90 H (0.24-0.86) x10^3/uL Absolute Nucleated RBC 0.00 (0.00-0.012) x10^3u/L Lymphocytes % 13.7 L (19.3-51.7) % Monocytes % 7.9 (4.7-12.5) % Eosinophils % 0.5 L (0.7-5.8) % Basophils % 0.2 (0.1-1.2) % Absolute Granulocytes 8.82 H (1.56-6.13) x10^3/uL Basophils # 0.02 (0.01-0.08) x10^3/uL Sodium 137 (135-145) mmol/L Potassium 3.8 (3.5-5.1) mmol/L Chloride 104 (98-107) mmol/L Carbon Dioxide 24 (22-30) mmol/L Anion Gap 12.3 (5-15) MEQ/L BUN 30 H (7-17) mg/dL Creatinine 0.95 (0.52-1.04) mg/dL Estimated GFR 57.3 ML/MIN Glucose 150 H (74-106) mg/dL Calcium 9.6 (8.4-10.2) mg/dL Total Bilirubin 1.20 (0.2-1.3) mg/dL AST 25 (14-36) U/L ALT 16 (0-35) U/L Alkaline Phosphatase 69 (38-126) U/L Serum Total Protein 6.8 (6.3-8.2) g/dL Albumin 4.1 (3.5-5.0) g/dL Amylase 42 (30-110) U/L Lipase 17 L (23-300) U/L - Radiology Impressions Radiology Exams & Impressions: Radiology Procedures Category Date Time Status ABDOMEN AND PELVIS W/0 CONTRAS [CT] Stat Exams 08/23/24 10:30 Completed - Other Procedures and Tests Respiratory Therapy 08/23/24 13:02 Respiratory Therapy Consult ONCE Assessment/Plan (1) Diverticulitis Current Visit: Yes Status: Acute Assessment & Plan: - CBC, CMP reviewed - WBC 11.4 - Tele - Levaquin and flagyl IV - NPO - BC x2 - MOrphine IV PRN pain - Zofran PRN nausea - LA 1.5 - IV fluids - CT Abd/Pelvis: IMPRESSION: 1. Fluid filled distended descending and sigmoid colon down to the rectosigmoid junction with mild mural thickening showing multiple small colonic diverticulae along their course. Stranding and smudging of the regional pericolic fat planes. Appearance is concerning for infectious/inflammatory diverticulitis, new finding. The possibility of complicated diverticular disease cannot be excluded. Clinical and laboratory correlation is advised. 2. Hiatus hernia, stable. 3. Mutliple hepatic and splenic calcific foci/granulomas, stable. 4. 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 5. Right renal midpole cyst, stable. 6. Bilateral basal atelectasis, stable. Code(s): K57.92 - DVTRCLI OF INTEST, PART UNSP, W/O PERF OR ABSCESS W/O BLEED (2) GI bleed Current Visit: Yes Status: Acute Assessment & Plan: - Hgb stable 15.2- trend - Protonix BID - NPO - NS @ 75ml hr - tele Code(s): K92.2 - GASTROINTESTINAL HEMORRHAGE, UNSPECIFIED (3) Atelectasis of both lungs Current Visit: Yes Status: Acute Assessment & Plan: - as seen on CT - IV antibiotics - RA 93% Code(s): J98.11 - ATELECTASIS (4) Sinus tachycardia Current Visit: Yes Status: Acute Assessment & Plan: - Tele - 2:2 GI bleed, diverticulitis, BLL atelectasis Code(s): R00.0 - TACHYCARDIA, UNSPECIFIED (5) HTN (hypertension) Current Visit: Yes Status: Chronic Assessment & Plan: - Continue home BP meds Code(s): I10 - ESSENTIAL (PRIMARY) HYPERTENSION (6) Hyperlipidemia Current Visit: Yes Status: Chronic Assessment & Plan: - continue statin VTE: SCD's PPI: Protonix Next of KIN: Son's D/C plan: 2-3 days Codes status:Full Code(s): E78.5 - HYPERLIPIDEMIA, UNSPECIFIED Telemedicine Encounter - Telemedicine Encounter Telemedicine Encounter: "The entirety of this encounter was performed via Telemedicine" This visit was performed using real-time audio and video connection between my location and thepatients locationwith the assistance of a surrogateat the patients location. Written or verbal consent was obtained from the patient/guardian to perform this visit using[facility] techn[facility]. Any patient questions regarding the telemedicine interaction were answered.
[2024-08-23] MEDS ORDERED: MORPHINE SULFATE 2 MG INJ IV PRN (13:25)
[2024-08-23] MEDS ORDERED: Zofran 4 MG/2 ML VIAL IV PRN (13:28)
[2024-08-23 14:03] LABS: INR 1.1 (0.8-3.0); PROTIME 11.9 SECONDS (9.4-12.5)
[2024-08-23] MEDS: FLAGYL 500 MG IVPB 500 MG/100 ML BAG IV SCH (15:18)
[2024-08-23] MEDS: Compazine 10 MG/2 ML IV PRN (15:18)
[2024-08-23] MEDS ORDERED: COREG 12.5 MG ONE (16:34)
[2024-08-23] MEDS: COREG 12.5 MG PO SCH (16:45)
[2024-08-23] MEDS: Levofloxacin 500MG/100ML D5W 500 MG/100 ML BAG IV SCH (17:14)
[2024-08-23] MEDS ORDERED: HUMALOG SQ PRN (18:18)
[2024-08-23] MEDS: Levaquin 250MG/50ML D5W 250 MG/50 ML BAG IV SCH (18:42)
[2024-08-23] MEDS: Ms Contin 15 MG PO SCH (21:28)
[2024-08-23] MEDS: PROTONIX 40 MG IV IV SCH (21:28)
[2024-08-24 05:07] LABS: Hematocrit 45.4 % (34.1-44.9); Hemoglobin 14.3 g/dL (11.2-15.7); Mean Cell Volume 91.7 fL (79.4-94.8); Mean Corpuscular Hemoglobin 28.9 pg (25.6-32.2); Mean Corpuscular Hgb Concent. 31.5 g/dL (32.2-35.5); Mean Platelet Volume 10.4 fL (9.4-12.3); Platelet Count 139 x10^3/uL (182-369); Red Blood Count 4.95 x10^6/uL (3.93-5.22); Red Cell Distribution Width 14.3 % (11.7-14.4); White Blood Count 14.1 x10^3/uL (3.98-10.04)
--- NOTE | 2024-08-24 05:07 | PCM.NOTE ---
Date and Time: 08/24/24 9385 Subjective Assessment: is a 88 year old female with PMHX of HTN, Hyperlipidemia, DJD, OA, bladder cancer, and cervical cancer admitted 08/23/24 with diverticulitis after presenting to ED with complaints of passing blood from rectum - bright red. She reports she has been vomiting without blood or coffee grounds. + LLQ tenderness on exam without peritoneal signs or masses - no pain at rest. CT abd/pelvis shows diverticulitis. IP will start IV antibiotics, PPI BID, IV fluids, antiemetic, and IV pain meds PRN. Will place pt NPO for now. Surgery consulted. 08/24/24: No overnight events noted. Endorses improvement nausea. No abdominal pain. No vomiting. No longer having BRB in stool but states stool is dark. She is anxious for discharge. Surgery consulted. Patient states she has never had a colonoscopy before. Most likely will have to have OP once diverticulitis is cleared. Hgb stable. UA positive for UTI. Culture pending. Will continue Levaquin and Flagyl. - Review of Systems Constitutional: Weakness Eyes: No Symptoms Ears, Nose, & Throat: No Symptoms Respiratory: No Symptoms Cardiac: No Symptoms Abdominal/Gastrointestinal: Nausea Genitourinary Symptoms: No Symptoms Musculoskeletal: No Symptoms Skin: No Symptoms Neurological: No Symptoms Psychological: No Symptoms Endocrine: No Symptoms Hematologic/Lymphatic: No Symptoms Immunological/Allergic: No Symptoms Objective Exam General Appearance: no apparent distress Neurologic Exam: alert, oriented x 3, cooperative Skin Exam: pale Eye Exam: PERRL Ears, Nose, Throat Exam: normal ENT inspection Neck Exam: normal inspection Respiratory Exam: normal breath sounds, lungs clear Cardiovascular Exam: regular rate/rhythm, normal heart sounds Gastrointestinal/Abdomen Exam: soft, normal bowel sounds Extremity Exam: normal inspection Back Exam: normal inspection Pelvic Exam: deferred Rectal Exam: deferred Objective Data Vital Signs: Vital Signs - 24 hr Temp Pulse Resp BP BP Pulse Ox 08/24/24 03:00 98.2 F 91 H 19 117/61 96 08/23/24 23:00 96.9 F 89 17 91/54 94 L 08/23/24 19:24 97.8 F 107 H 17 98/61 94 L 08/23/24 16:40 98.3 F 115 H 18 125/66 93 L 08/23/24 14:09 101 H 18 92 L 08/23/24 14:06 92 L 08/23/24 13:26 98.1 F 110 H 23 189/84 92 L 08/23/24 12:30 146/92 08/23/24 12:17 93 L 08/23/24 12:00 103 H 23 121/91 95 08/23/24 11:35 98 H 21 175/95 94 L 08/23/24 11:00 100 H 23 125/81 93 L 08/23/24 10:38 110 H 15 133/78 93 L 08/23/24 10:37 108 H 14 94 L 08/23/24 10:36 94 L 08/23/24 10:00 108 H 26 H 136/92 94 L 08/23/24 09:46 118 H 26 H 150/101 93 L Pain Assessment - Last Documented Pain Intensity 0 Intake and Output: Intake & Output 08/21/24 08/22/24 08/23/24 08/24/24 11:59 11:59 11:59 11:59 Intake Total 1134 Balance 1134 Weight 85 kg 84.4 kg Lab Results: Lab Results-Last 24 Hours 08/23/24 08/23/24 08/23/24 Range/Units 10:20 10:20 13:40 WBC 11.4 H (3.98-10.04) x10^3/uL RBC 5.23 H (3.93-5.22) x10^6/uL Hgb 15.2 (11.2-15.7) g/dL Hct 47.2 H (34.1-44.9) % MCV 90.2 (79.4-94.8) fL MCH 29.1 (25.6-32.2) pg MCHC 32.2 (32.2-35.5) g/dL RDW 14.0 (11.7-14.4) % Plt Count 160 L (182-369) x10^3/uL MPV 9.4 (9.4-12.3) fL Gran % 77.3 H (34.0-71.1) % Immature Gran % (Auto) 0.4 (0.001-0.429) % Nucleat RBC Rel Count 0.0 (0.00-0.2) % Eos # (Auto) 0.06 (0.04-0.36) x10^3/uL Immature Gran # (Auto) 0.05 H (0.001-0.031) x10^3u/L Absolute Lymphs (auto) 1.57 (1.18-3.74) x10^3/uL Absolute Monos (auto) 0.90 H (0.24-0.86) x10^3/uL Absolute Nucleated RBC 0.00 (0.00-0.012) x10^3u/L Lymphocytes % 13.7 L (19.3-51.7) % Monocytes % 7.9 (4.7-12.5) % Eosinophils % 0.5 L (0.7-5.8) % Basophils % 0.2 (0.1-1.2) % Absolute Granulocytes 8.82 H (1.56-6.13) x10^3/uL Basophils # 0.02 (0.01-0.08) x10^3/uL PT (9.4-12.5) SECONDS INR (0.8-3.0) Sodium 137 (135-145) mmol/L Potassium 3.8 (3.5-5.1) mmol/L Chloride 104 (98-107) mmol/L Carbon Dioxide 24 (22-30) mmol/L Anion Gap 12.3 (5-15) MEQ/L BUN 30 H (7-17) mg/dL Creatinine 0.95 (0.52-1.04) mg/dL Estimated GFR 57.3 ML/MIN Glucose 150 H (74-106) mg/dL POC Glucometer (74 to 106) mg/dL Lactic Acid 1.5 (0.4-2.0) Calcium 9.6 (8.4-10.2) mg/dL Total Bilirubin 1.20 (0.2-1.3) mg/dL AST 25 (14-36) U/L ALT 16 (0-35) U/L Alkaline Phosphatase 69 (38-126) U/L Serum Total Protein 6.8 (6.3-8.2) g/dL Albumin 4.1 (3.5-5.0) g/dL Amylase 42 (30-110) U/L Lipase 17 L (23-300) U/L 08/23/24 08/23/24 Range/Units 13:40 21:12 WBC (3.98-10.04) x10^3/uL RBC (3.93-5.22) x10^6/uL Hgb (11.2-15.7) g/dL Hct (34.1-44.9) % MCV (79.4-94.8) fL MCH (25.6-32.2) pg MCHC (32.2-35.5) g/dL RDW (11.7-14.4) % Plt Count (182-369) x10^3/uL MPV (9.4-12.3) fL Gran % (34.0-71.1) % Immature Gran % (Auto) (0.001-0.429) % Nucleat RBC Rel Count (0.00-0.2) % Eos # (Auto) (0.04-0.36) x10^3/uL Immature Gran # (Auto) (0.001-0.031) x10^3u/L Absolute Lymphs (auto) (1.18-3.74) x10^3/uL Absolute Monos (auto) (0.24-0.86) x10^3/uL Absolute Nucleated RBC (0.00-0.012) x10^3u/L Lymphocytes % (19.3-51.7) % Monocytes % (4.7-12.5) % Eosinophils % (0.7-5.8) % Basophils % (0.1-1.2) % Absolute Granulocytes (1.56-6.13) x10^3/uL Basophils # (0.01-0.08) x10^3/uL PT 11.9 (9.4-12.5) SECONDS INR 1.10 (0.8-3.0) Sodium (135-145) mmol/L Potassium (3.5-5.1) mmol/L Chloride (98-107) mmol/L Carbon Dioxide (22-30) mmol/L Anion Gap (5-15) MEQ/L BUN (7-17) mg/dL Creatinine (0.52-1.04) mg/dL Estimated GFR ML/MIN Glucose (74-106) mg/dL POC Glucometer 118 H (74 to 106) mg/dL Lactic Acid (0.4-2.0) Calcium (8.4-10.2) mg/dL Total Bilirubin (0.2-1.3) mg/dL AST (14-36) U/L ALT (0-35) U/L Alkaline Phosphatase (38-126) U/L Serum Total Protein (6.3-8.2) g/dL Albumin (3.5-5.0) g/dL Amylase (30-110) U/L Lipase (23-300) U/L Radiology Exams: Radiology Procedures Category Date Time Status ABDOMEN AND PELVIS W/0 CONTRAS [CT] Stat Exams 08/23/24 10:30 Completed Assessment/Plan (1) Diverticulitis Current Visit: Yes Status: Acute Assessment & Plan: - CBC, CMP reviewed - WBC at 14.1>11.4 -trend - Tele - Levaquin and flagyl IV - pt with allergy to pcn - NPO - BC x2 - Morphine IV PRN pain - Zofran PRN nausea - LA 1.5 - IV fluids - CT Abd/Pelvis reviewed and concerning for infectious/inflammatory diverticulitis, new finding. The possibility of complicated diverticular disease cannot be excluded. Code(s): K57.92 - DVTRCLI OF INTEST, PART UNSP, W/O PERF OR ABSCESS W/O BLEED (2) GI bleed Current Visit: Yes Status: Acute Assessment & Plan: - Hgb -trend - Protonix BID - NPO - IVF - tele Code(s): K92.2 - GASTROINTESTINAL HEMORRHAGE, UNSPECIFIED (3) UTI (urinary tract infection) Current Visit: Yes Status: Acute Assessment & Plan: -UA suspicious for infection - continue Levaquin - follow culture Code(s): N39.0 - URINARY TRACT INFECTION, SITE NOT SPECIFIED (4) Atelectasis of both lungs Current Visit: Yes Status: Acute Assessment & Plan: - as seen on CT - IV antibiotics - Supplemental oxygen as needed to maintain spo2> 92% -RA at baseline -IS Code(s): J98.11 - ATELECTASIS (5) Sinus tachycardia Current Visit: Yes Status: Acute Assessment & Plan: - Tele - 2:2 GI bleed, diverticulitis, BLL atelectasis, UTI Code(s): R00.0 - TACHYCARDIA, UNSPECIFIED (6) HTN (hypertension) Current Visit: Yes Status: Chronic Assessment & Plan: - Continue home BP meds Code(s): I10 - ESSENTIAL (PRIMARY) HYPERTENSION (7) Hyperlipidemia Current Visit: Yes Status: Chronic Assessment & Plan: - continue statin VTE: SCD's PPI: Protonix Next of KIN: Son's D/C plan: 2-3 days Codes status:Full Code(s): E78.5 - HYPERLIPIDEMIA, UNSPECIFIED
[2024-08-24 05:55] LABS: ALBUMIN 3.2 g/dL (3.5-5.0); ANION GAP 12.1 MEQ/L (5-15); BILIRUBIN,TOTAL 1.7 mg/dL (0.2-1.3); Calcium 8.6 mg/dL (8.4-10.2); Creatinine 1 0.89 mg/dL (0.52-1.04); EST GLOMERULAR FILTRATION RATE 61.9 ML/MIN; Potassium 3.8 mmol/L (3.5-5.1); Total Protein 5.8 g/dL (6.3-8.2)
[2024-08-24] MEDS ORDERED: TYLENOL 325 MG PO PRN (07:20)
[2024-08-24] MEDS ORDERED: MEDICATION INTERVENTION MC SCH (07:30)
[2024-08-24] MEDS ORDERED: LEVOFLOXACIN 750MG/150ML D5W 750 MG/150 ML BAG IV SCH (10:00)
[2024-08-24] MEDS ORDERED: NON-FORMULARY ITEM (Nabumetone [Nabumetone] 500 MG Tablet) PO SCH (10:00)
[2024-08-24 10:18] LABS: Appearance Cloudy (Clear); Bilirubin Small (Negative); Blood Large (Negative); Epithelial Cells Few /HPF (None Seen); Glucose, Urine Negative (Negative); Ketones 15 (Negative); Leukocyte Esterase Moderate (Negative); Nitrite Positive (Negative); Protein,Urine Dip 100 (Negative); RBC >100 /HPF (0-5); Specific Gravity 1.025 (1.005-1.030); Urobilinogen 0.2 mg/dL (0.2); WBC >100 /HPF (0-5)
[2024-08-24 10:22] LABS: Mucus Few /HPF (NEGATIVE)
[2024-08-24 10:23] LABS: Bacteria Moderate /HPF (None Seen)
[2024-08-24] MEDS: Vitamin B-12 500 MCG PO SCH (11:00)
[2024-08-24] MEDS: ZOCOR 20MG PO SCH (11:00)
[2024-08-24] MEDS: NORVASC 5 MG PO SCH (14:31)
[2024-08-24] MEDS: Zestril 20 MG PO SCH (14:31)
[2024-08-24] MEDS: ECOTRIN 81 MG PO SCH (14:31)
[2024-08-24] MEDS: NYSTOP POWDER 15 GM TP SCH (22:38)
[2024-08-25 04:44] LABS: Absolute Neutrophil Ct (ANC) 8.89 x10^3/uL (1.56-6.13); BASOPHIL % 0.3 % (0.1-1.2); Basophil (Absolute #) 0.03 x10^3/uL (0.01-0.08); Eosinophil % 2.3 % (0.7-5.8); Eosinophil (Absolute #) 0.27 x10^3/uL (0.04-0.36); Hematocrit 41.7 % (34.1-44.9); IMMATURE GRAN # 0.04 x10^3u/L (0.001-0.031); IMMATURE GRAN % 0.3 % (0.001-0.429); Lymphocyte (Absolute #) 1.94 x10^3/uL (1.18-3.74); Lymphocytes % 16.2 % (19.3-51.7); Mean Cell Volume 93.1 fL (79.4-94.8); Mean Corpuscular Hgb Concent. 31.2 g/dL (32.2-35.5); Monocytes % 6.7 % (4.7-12.5); Neutrophil % 74.2 % (34.0-71.1); Platelet Count 131 x10^3/uL (182-369); Red Blood Count 4.48 x10^6/uL (3.93-5.22); Red Cell Distribution Width 14.3 % (11.7-14.4)
--- NOTE | 2024-08-25 05:06 | PCM.NOTE ---
Date and Time: 08/25/24 1761 Subjective Assessment: is a 88 year old female with PMHX of HTN, Hyperlipidemia, DJD, OA, bladder cancer, and cervical cancer admitted 08/23/24 with diverticulitis after presenting to ED with complaints of passing blood from rectum - bright red. She reports she has been vomiting without blood or coffee grounds. + LLQ tenderness on exam without peritoneal signs or masses - no pain at rest. CT abd/pelvis shows diverticulitis. IP will start IV antibiotics, PPI BID, IV fluids, antiemetic, and IV pain meds PRN. Will place pt NPO for now. Surgery consulted. Patient to have colonoscopy outpatient. 08/24/24: No overnight events noted. Endorses improvement nausea. No abdominal pain. No vomiting. No longer having BRB in stool but states stool is dark. She is anxious for discharge. Surgery consulted. Patient states she has never had a colonoscopy before. Most likely will have to have OP once diverticulitis is cleared. Hgb stable. UA positive for UTI. Culture pending. Will continue Levaquin and Flagyl. Objective Data Vital Signs: Vital Signs - 24 hr Temp Pulse Resp BP Pulse Ox 08/25/24 04:00 98.6 F 91 H 18 120/68 90 L 08/25/24 00:00 98.4 F 104 H 18 109/55 92 L 08/24/24 19:58 98.3 F 85 20 100/49 93 L 08/24/24 16:00 97.1 F 78 16 99/63 94 L 08/24/24 12:16 97.7 F 87 17 115/56 93 L 08/24/24 10:05 90/56 08/24/24 07:37 97.5 F 93 H 16 106/55 93 L Pain Assessment - Last Documented Pain Intensity 0 Intake and Output: Intake & Output 08/22/24 08/23/24 08/24/24 08/25/24 11:59 11:59 11:59 11:59 Intake Total 1134 2271 Balance 1134 2271 Weight 85 kg 84.4 kg Lab Results: Lab Results-Last 24 Hours 08/23/24 08/24/24 08/24/24 Range/Units 09:46 05:00 05:00 WBC 14.1 H (3.98-10.04) x10^3/uL RBC 4.95 (3.93-5.22) x10^6/uL Hgb 14.3 (11.2-15.7) g/dL Hct 45.4 H (34.1-44.9) % MCV 91.7 (79.4-94.8) fL MCH 28.9 (25.6-32.2) pg MCHC 31.5 L (32.2-35.5) g/dL RDW 14.3 (11.7-14.4) % Plt Count 139 L (182-369) x10^3/uL MPV 10.4 (9.4-12.3) fL Sodium 137 (135-145) mmol/L Potassium 3.8 (3.5-5.1) mmol/L Chloride 104 (98-107) mmol/L Carbon Dioxide 24 (22-30) mmol/L Anion Gap 12.1 (5-15) MEQ/L BUN 33 H (7-17) mg/dL Creatinine 0.89 (0.52-1.04) mg/dL Estimated GFR 61.9 ML/MIN Glucose 88 (74-106) mg/dL POC Glucometer (74 to 106) mg/dL Hemoglobin A1c (4.5-6.0) % Calcium 8.6 (8.4-10.2) mg/dL Total Bilirubin 1.70 H (0.2-1.3) mg/dL AST 21 (14-36) U/L ALT 13 (0-35) U/L Alkaline Phosphatase 52 (38-126) U/L Serum Total Protein 5.8 L (6.3-8.2) g/dL Albumin 3.2 L (3.5-5.0) g/dL Urine Color [place] A (Yellow) Urine Appearance Cloudy A (Clear) Urine pH 5.0 (4.6-8.0) Ur Specific [place] 1.025 (1.005-1.030) Urine Protein 100 A (Negative) Urine Glucose (UA) Negative (Negative) mg/dL Urine Ketones 15 A (Negative) Urine Blood Large A (Negative) Urine Nitrite Positive A (Negative) Urine Bilirubin Small A (Negative) Urine Urobilinogen 0.2 (0.2) mg/dL Ur Leukocyte Esterase Moderate A (Negative) U Hyaline Cast (Auto) 3-5 A (0-2) /LPF Urine Microscopic RBC >100 A (0-5) /HPF Urine Microscopic WBC >100 A (0-5) /HPF Ur Epithelial Cells Few (None Seen) /HPF Urine Bacteria Moderate A (None Seen) /HPF Urine Mucus Few A (NEGATIVE) /HPF Urine Culture Reflexed YES (NO) 08/24/24 08/24/24 08/24/24 Range/Units 05:00 07:19 11:54 WBC (3.98-10.04) x10^3/uL RBC (3.93-5.22) x10^6/uL Hgb (11.2-15.7) g/dL Hct (34.1-44.9) % MCV (79.4-94.8) fL MCH (25.6-32.2) pg MCHC (32.2-35.5) g/dL RDW (11.7-14.4) % Plt Count (182-369) x10^3/uL MPV (9.4-12.3) fL Sodium (135-145) mmol/L Potassium (3.5-5.1) mmol/L Chloride (98-107) mmol/L Carbon Dioxide (22-30) mmol/L Anion Gap (5-15) MEQ/L BUN (7-17) mg/dL Creatinine (0.52-1.04) mg/dL Estimated GFR ML/MIN Glucose (74-106) mg/dL POC Glucometer 91 81 (74 to 106) mg/dL Hemoglobin A1c 5.52 (4.5-6.0) % Calcium (8.4-10.2) mg/dL Total Bilirubin (0.2-1.3) mg/dL AST (14-36) U/L ALT (0-35) U/L Alkaline Phosphatase (38-126) U/L Serum Total Protein (6.3-8.2) g/dL Albumin (3.5-5.0) g/dL Urine Color (Yellow) Urine Appearance (Clear) Urine pH (4.6-8.0) Ur Specific [place] (1.005-1.030) Urine Protein (Negative) Urine Glucose (UA) (Negative) mg/dL Urine Ketones (Negative) Urine Blood (Negative) Urine Nitrite (Negative) Urine Bilirubin (Negative) Urine Urobilinogen (0.2) mg/dL Ur Leukocyte Esterase (Negative) U Hyaline Cast (Auto) (0-2) /LPF Urine Microscopic RBC (0-5) /HPF Urine Microscopic WBC (0-5) /HPF Ur Epithelial Cells (None Seen) /HPF Urine Bacteria (None Seen) /HPF Urine Mucus (NEGATIVE) /HPF Urine Culture Reflexed (NO) 08/24/24 08/24/24 Range/Units 16:37 21:09 WBC (3.98-10.04) x10^3/uL RBC (3.93-5.22) x10^6/uL Hgb (11.2-15.7) g/dL Hct (34.1-44.9) % MCV (79.4-94.8) fL MCH (25.6-32.2) pg MCHC (32.2-35.5) g/dL RDW (11.7-14.4) % Plt Count (182-369) x10^3/uL MPV (9.4-12.3) fL Sodium (135-145) mmol/L Potassium (3.5-5.1) mmol/L Chloride (98-107) mmol/L Carbon Dioxide (22-30) mmol/L Anion Gap (5-15) MEQ/L BUN (7-17) mg/dL Creatinine (0.52-1.04) mg/dL Estimated GFR ML/MIN Glucose (74-106) mg/dL POC Glucometer 78 85 (74 to 106) mg/dL Hemoglobin A1c (4.5-6.0) % Calcium (8.4-10.2) mg/dL Total Bilirubin (0.2-1.3) mg/dL AST (14-36) U/L ALT (0-35) U/L Alkaline Phosphatase (38-126) U/L Serum Total Protein (6.3-8.2) g/dL Albumin (3.5-5.0) g/dL Urine Color (Yellow) Urine Appearance (Clear) Urine pH (4.6-8.0) Ur Specific [place] (1.005-1.030) Urine Protein (Negative) Urine Glucose (UA) (Negative) mg/dL Urine Ketones (Negative) Urine Blood (Negative) Urine Nitrite (Negative) Urine Bilirubin (Negative) Urine Urobilinogen (0.2) mg/dL Ur Leukocyte Esterase (Negative) U Hyaline Cast (Auto) (0-2) /LPF Urine Microscopic RBC (0-5) /HPF Urine Microscopic WBC (0-5) /HPF Ur Epithelial Cells (None Seen) /HPF Urine Bacteria (None Seen) /HPF Urine Mucus (NEGATIVE) /HPF Urine Culture Reflexed (NO) Radiology Exams: Radiology Procedures Category Date Time Status ABDOMEN AND PELVIS W/0 CONTRAS [CT] Stat Exams 08/23/24 10:30 Completed Assessment/Plan (1) Diverticulitis Current Visit: Yes Status: Acute Assessment & Plan: - CBC, CMP reviewed - WBC at 14.1>11.4 -trend - Tele - Levaquin and flagyl IV - pt with allergy to pcn - NPO - BC x2 - Morphine IV PRN pain - Zofran PRN nausea - LA 1.5 - IV fluids - CT Abd/Pelvis reviewed and concerning for infectious/inflammatory diverticulitis, new finding. The possibility of complicated diverticular disease cannot be excluded. 08/25: -CMP, CBC reviewed - WBC down-trending 12.0<14.1 Code(s): K57.92 - DVTRCLI OF INTEST, PART UNSP, W/O PERF OR ABSCESS W/O BLEED (2) GI bleed Current Visit: Yes Status: Acute Assessment & Plan: - Hgb -trend - Protonix BID - NPO - IVF - tele 08/25: -Hgb level reviewed and stable at 13.0 -Surgery will follow as OP for colonoscopy ##Hyponatremia -secondary to hypovolemia- continue IVF Code(s): K92.2 - GASTROINTESTINAL HEMORRHAGE, UNSPECIFIED (3) UTI (urinary tract infection) Current Visit: Yes Status: Acute Assessment & Plan: -UA suspicious for infection - continue Levaquin - follow culture Code(s): N39.0 - URINARY TRACT INFECTION, SITE NOT SPECIFIED (4) Atelectasis of both lungs Current Visit: Yes Status: Acute Assessment & Plan: - as seen on CT - IV antibiotics - Supplemental oxygen as needed to maintain spo2> 92% -RA at baseline -IS Code(s): J98.11 - ATELECTASIS (5) Sinus tachycardia Current Visit: Yes Status: Acute Assessment & Plan: - Tele - 2:2 GI bleed, diverticulitis, BLL atelectasis, UTI 1/21: -HR improving now in the 80-90's Code(s): R00.0 - TACHYCARDIA, UNSPECIFIED (6) HTN (hypertension) Current Visit: Yes Status: Chronic Assessment & Plan: - Continue home BP meds Code(s): I10 - ESSENTIAL (PRIMARY) HYPERTENSION (7) Hyperlipidemia Current Visit: Yes Status: Chronic Assessment & Plan: - continue statin VTE: SCD's PPI: Protonix Next of KIN: Son's D/C plan: 2-3 days Codes status:Full Code(s): K57.92 - DVTRCLI OF INTEST, PART UNSP, W/O PERF OR ABSCESS W/O BLEED (2) GI bleed Current Visit: Yes Status: Acute Code(s): K92.2 - GASTROINTESTINAL HEMORRHAGE, UNSPECIFIED (3) UTI (urinary tract infection) Current Visit: Yes Status: Acute Code(s): N39.0 - URINARY TRACT INFECTION, SITE NOT SPECIFIED (4) Atelectasis of both lungs Current Visit: Yes Status: Acute Code(s): J98.11 - ATELECTASIS (5) Sinus tachycardia Current Visit: Yes Status: Acute Code(s): R00.0 - TACHYCARDIA, UNSPECIFIED (6) HTN (hypertension) Current Visit: Yes Status: Chronic Code(s): I10 - ESSENTIAL (PRIMARY) HYPERTENSION (7) Hyperlipidemia Current Visit: Yes Status: Chronic Code(s): E78.5 - HYPERLIPIDEMIA, UNSPECIFIED
[2024-08-25 05:09] LABS: ALBUMIN 3.1 g/dL (3.5-5.0); ANION GAP 13.7 MEQ/L (5-15); Calcium 8.2 mg/dL (8.4-10.2); Creatinine 1 0.85 mg/dL (0.52-1.04); EST GLOMERULAR FILTRATION RATE 65.5 ML/MIN; Potassium 3.5 mmol/L (3.5-5.1); Total Protein 5.6 g/dL (6.3-8.2)
[2024-08-25 09:01] LABS: Slide Review 1 YES
[2024-08-25] MEDS: SODIUM BICARBONATE PO SCH (09:26)
--- NOTE | 2024-08-25 09:58 | CONS ---
HISTORY OF PRESENT ILLNESS: An 88-year-old with multiple medical problems, hypertension, hyperlipidemia, degenerative disc disease, osteoarthritis, history of bladder cancer. She had some radiation treatment in the past. She had treatment 3 months ago. She had a little bit of cramping and some blood in her stool. She denied vomiting to me but the ER record said she vomited a little bit. She is having loose stools. This started a couple of days ago. A little bit of left lower quadrant tenderness at that time. She is not having any abdominal pain at this point. CT scan done, showed some fluid-filled descending sigmoid colon, some mild thickening. Radiologist questions diverticulitis and the rectal bleeding might be a component of colitis. She has not had a colonoscopy in the past. At this time, her hemoglobin is 14.3. Bleeding started a couple of days ago, seems to be stable. She does not seem to be symptomatic from bleeding. She is afebrile, vital signs stable. Denying any abdominal pain now. She had a small amount of blood in her bowel movement that improved. Again, her hemoglobin seems stable. She denies any abdominal pain. She reports she would like to go home and come back as an outpatient and consider outpatient colonoscopy down the road. PAST MEDICAL HISTORY: As mentioned above. Also has hypertension and high cholesterol. MEDICATIONS: She is on IV antibiotics here. Medications at home, she is on Tylenol Arthritis and Norvasc, aspirin, Coreg, Zestril. She is on morphine sulfate at home, nabumetone, pravastatin, lisinopril, and cyanocobalamin. ALLERGIES: Penicillin and Zofran. PAST SURGICAL HISTORY: Hysterectomy in the past, tunneled Port-A-Cath in the past. SOCIAL HISTORY: Former smoker. No alcohol abuse. FAMILY HISTORY: Negative for colon cancer according to the patient. Negative for heart disease or stroke. REVIEW OF SYSTEMS: Twelve systems reviewed. She denies any abdominal pain. She denies any nausea or vomiting now. She would like to go home. She was having a little bit of loose stool with a little bit of blood in it but improved from admission. Again, her hemoglobin despite this going on for a couple of days. Her hemoglobin is 14 today. She does not appear to be significantly bleeding. IMPRESSION: Rectal bleeding in patient that initially had some cramping. Whether this is related to colitis or whether blood from diverticular source and had cramping from that. Either way, she does not need any emergent surgical intervention. Discussed option of considering colonoscopy at some point. She, however, would just continue medical management, be released and follow up for a colonoscopy as an outpatient eventually rather than here in the hospital. She would like to go home. If she truly did have diverticulitis, it would be better to wait a few weeks to do colonoscope. If she has persistent bleeding, could consider inpatient colonoscopy. At this point, she is not interested in doing inpatient colonoscopy, so continue medical management, antibiotics, send her home on oral antibiotics eventually. No emergent surgical intervention necessary at this point. She could even have some inflammation related to her radiation treatments for her gynecologic care or bladder cancer. Again, she came in yesterday but it sounds like they did not call the surgeon on-call yesterday, asked that I see the patient while I was here today.
--- NOTE | 2024-08-25 10:35 | PCM.DS ---
Discharge Summary Date of Admission: 08/23/24 12:45 Date of Discharge: 08/25/24 Admitting Physician: NERISSA ROONEY MD Consults: Consults on Case 08/24/24 09:42 Consult Surgery ROUTINE Primary Care Provider: SENG,BONIFACIO Allergies Allergies Penicillins Allergy (Verified 08/23/24 09:47) ondansetron [From Zofran] Adverse Reaction (Verified 08/23/24 09:47) caused confusion, dizziness, etc. Hospital Summary - Hospital Course Hospital Course: is a 88 year old female with PMHX of HTN, Hyperlipidemia, DJD, OA, bladder cancer, and cervical cancer admitted 08/23/24 with diverticulitis after presenting to ED with complaints of passing blood from rectum - bright red. She reports she has been vomiting without blood or coffee grounds. + LLQ tenderness on exam without peritoneal signs or masses - no pain at rest. CT abd/pelvis shows diverticulitis. IP will start IV antibiotics, PPI BID, IV fluids, antiemetic, and IV pain meds PRN. Will place pt NPO for now. Surgery consulted. Patient to have colonoscopy outpatient. Patient tolerating a diet with no abdominal pain, nausea, or vomiting. No BRB per rectum with BM. Hgb stable. Will discharge on Augmentin. Ucult with NGTD -will follow with PCP. Colonoscopy to be set up OP with general surgery. Discharge Note New Diagnosis: Diverticulitis New Medications: Augmentin/protonix Follow Up: PCP/surgery Results pending: ucult/bcult Outpatient testing to order: colonoscopy Latest Assessment & Plan (1) Diverticulitis Current Visit: Yes Status: Acute Assessment & Plan: - CBC, CMP reviewed - WBC at 14.1>11.4 -trend - Tele - Levaquin and flagyl IV - pt with allergy to pcn - NPO - BC x2 - Morphine IV PRN pain - Zofran PRN nausea - LA 1.5 - IV fluids - CT Abd/Pelvis reviewed and concerning for infectious/inflammatory diverticulitis, new finding. The possibility of complicated diverticular disease cannot be excluded. 08/25: -CMP, CBC reviewed - WBC down-trending 12.0<14.1 Code(s): K57.92 - DVTRCLI OF INTEST, PART UNSP, W/O PERF OR ABSCESS W/O BLEED (2) GI bleed Current Visit: Yes Status: Acute Assessment & Plan: - Hgb -trend - Protonix BID - NPO - IVF - tele 08/25: -Hgb level reviewed and stable at 13.0 -Surgery will follow as OP for colonoscopy ##Hyponatremia -secondary to hypovolemia- continue IVF Code(s): K92.2 - GASTROINTESTINAL HEMORRHAGE, UNSPECIFIED (3) UTI (urinary tract infection) Current Visit: Yes Status: Acute Assessment & Plan: -UA suspicious for infection - continue Levaquin - follow culture 08/25: -Ucult NGTd - will follow- dismiss on Augmentin Code(s): N39.0 - URINARY TRACT INFECTION, SITE NOT SPECIFIED (4) Atelectasis of both lungs Current Visit: Yes Status: Acute Assessment & Plan: - as seen on CT - IV antibiotics - Supplemental oxygen as needed to maintain spo2> 92% -RA at baseline -IS Code(s): J98.11 - ATELECTASIS (5) Sinus tachycardia Current Visit: Yes Status: Acute Assessment & Plan: - Tele - 2:2 GI bleed, diverticulitis, BLL atelectasis, UTI 08/25: -HR improving now in the 80-90's Code(s): R00.0 - TACHYCARDIA, UNSPECIFIED (6) HTN (hypertension) Current Visit: Yes Status: Chronic Assessment & Plan: - Continue home BP meds Code(s): I10 - ESSENTIAL (PRIMARY) HYPERTENSION (7) Hyperlipidemia Current Visit: Yes Status: Chronic Assessment & Plan: - continue statin VTE: SCD's PPI: Protonix Next of KIN: Son's D/C plan: 2-3 days Codes status:Full I spent 35 minutes [id number] with the patient on the day of discharge performing discharge exam, discussing hospital stay and discharge instructions with patient and caregivers, preparation of discharge records, prescriptions & referral forms and addressing any questions/concerns the patient had as documented above. - Vitals & Intake/Output Vital Signs: Vital Signs Temperature 98.3 F 08/25/24 06:59 Pulse Rate 87 08/25/24 06:59 Respiratory Rate 16 08/25/24 06:59 Blood Pressure 119/58 08/25/24 06:59 O2 Sat by Pulse Oximetry 95 08/25/24 06:59 Intake & Output: Intake & Output 08/22/24 08/23/24 08/24/24 08/25/24 11:59 11:59 11:59 11:59 Intake Total 1134 2651 Balance 1133 2651 Weight 85 kg 84.4 kg - Lab Result Diagrams: 08/25/24 04:39 08/25/24 04:39 Lab Results-Last 24 Hrs: Lab Results-Last 24 Hours 08/24/24 08/24/24 08/24/24 Range/Units 11:54 16:37 21:09 WBC (3.98-10.04) x10^3/uL RBC (3.93-5.22) x10^6/uL Hgb (11.2-15.7) g/dL Hct (34.1-44.9) % MCV (79.4-94.8) fL MCH (25.6-32.2) pg MCHC (32.2-35.5) g/dL RDW (11.7-14.4) % Plt Count (182-369) x10^3/uL MPV (9.4-12.3) fL Gran % (34.0-71.1) % Immature Gran % (Auto) (0.001-0.429) % Nucleat RBC Rel Count (0.00-0.2) % Eos # (Auto) (0.04-0.36) x10^3/uL Immature Gran # (Auto) (0.001-0.031) x10^3u/L Absolute Lymphs (auto) (1.18-3.74) x10^3/uL Absolute Monos (auto) (0.24-0.86) x10^3/uL Absolute Nucleated RBC (0.00-0.012) x10^3u/L Lymphocytes % (19.3-51.7) % Monocytes % (4.7-12.5) % Eosinophils % (0.7-5.8) % Basophils % (0.1-1.2) % Absolute Granulocytes (1.56-6.13) x10^3/uL Basophils # (0.01-0.08) x10^3/uL Sodium (135-145) mmol/L Potassium (3.5-5.1) mmol/L Chloride (98-107) mmol/L Carbon Dioxide (22-30) mmol/L Anion Gap (5-15) MEQ/L BUN (7-17) mg/dL Creatinine (0.52-1.04) mg/dL Estimated GFR ML/MIN Glucose (74-106) mg/dL POC Glucometer 81 78 85 (74 to 106) mg/dL Calcium (8.4-10.2) mg/dL Total Bilirubin (0.2-1.3) mg/dL AST (14-36) U/L ALT (0-35) U/L Alkaline Phosphatase (38-126) U/L Serum Total Protein (6.3-8.2) g/dL Albumin (3.5-5.0) g/dL Slides for Path Review 08/25/24 08/25/24 08/25/24 Range/Units 04:39 04:39 07:17 WBC 12.0 H (3.98-10.04) x10^3/uL RBC 4.48 (3.93-5.22) x10^6/uL Hgb 13.0 (11.2-15.7) g/dL Hct 41.7 (34.1-44.9) % MCV 93.1 (79.4-94.8) fL MCH 29.0 (25.6-32.2) pg MCHC 31.2 L (32.2-35.5) g/dL RDW 14.3 (11.7-14.4) % Plt Count 131 L (182-369) x10^3/uL MPV 10.0 (9.4-12.3) fL Gran % 74.2 H (34.0-71.1) % Immature Gran % (Auto) 0.3 (0.001-0.429) % Nucleat RBC Rel Count 0.0 (0.00-0.2) % Eos # (Auto) 0.27 (0.04-0.36) x10^3/uL Immature Gran # (Auto) 0.04 H (0.001-0.031) x10^3u/L Absolute Lymphs (auto) 1.94 (1.18-3.74) x10^3/uL Absolute Monos (auto) 0.80 (0.24-0.86) x10^3/uL Absolute Nucleated RBC 0.00 (0.00-0.012) x10^3u/L Lymphocytes % 16.2 L (19.3-51.7) % Monocytes % 6.7 (4.7-12.5) % Eosinophils % 2.3 (0.7-5.8) % Basophils % 0.3 (0.1-1.2) % Absolute Granulocytes 8.89 H (1.56-6.13) x10^3/uL Basophils # 0.03 (0.01-0.08) x10^3/uL Sodium 132 L (135-145) mmol/L Potassium 3.5 (3.5-5.1) mmol/L Chloride 105 (98-107) mmol/L Carbon Dioxide 17 L (22-30) mmol/L Anion Gap 13.7 (5-15) MEQ/L BUN 29 H (7-17) mg/dL Creatinine 0.85 (0.52-1.04) mg/dL Estimated GFR 65.5 ML/MIN Glucose 77 (74-106) mg/dL POC Glucometer 66 L (74 to 106) mg/dL Calcium 8.2 L (8.4-10.2) mg/dL Total Bilirubin 1.00 (0.2-1.3) mg/dL AST 30 (14-36) U/L ALT 13 (0-35) U/L Alkaline Phosphatase 51 (38-126) U/L Serum Total Protein 5.6 L (6.3-8.2) g/dL Albumin 3.1 L (3.5-5.0) g/dL Slides for Path Review YES Micro Results-Entire Visit: Microbiology 08/23/24 09:46 Urine Culture - Preliminary Urine, Void NO GROWTH TO DATE 08/23/24 13:40 Blood Culture - Preliminary Blood 08/23/24 13:35 Blood Culture - Preliminary Blood Accuchecks Date 08/25/24 Date 08/24/24 Date 08/24/24 Date 08/24/24 Time 07:24 Time 16:56 Time 12:15 - Radiology Exams Ordered Rad Exams-Entire Visit: Radiology Procedures Category Date Time Status ABDOMEN AND PELVIS W/0 CONTRAS [CT] Stat Exams 08/23/24 10:30 Completed - Procedures and Test Procedures and Tests throughout Hospitalization: Therapy Orders & Screens 08/23/24 13:02 Respiratory Therapy Consult ONCE Comment: Reason For Exam: Discharge Exam General Appearance: no apparent distress Neurologic Exam: alert, oriented x 3, cooperative Eye Exam: PERRL Ears, Nose, Throat Exam: normal ENT inspection Neck Exam: normal inspection Respiratory Exam: normal breath sounds, lungs clear Cardiovascular Exam: regular rate/rhythm, normal heart sounds Gastrointestinal/Abdomen Exam: soft, normal bowel sounds Pelvic Exam: deferred Rectal Exam: deferred Back Exam: normal inspection Extremity Exam: normal inspection Skin Exam: normal color Final Diagnosis/Problem List - Final Discharge Diagnosis/Problem (1) Diverticulitis Current Visit: Yes Status: Acute Code(s): K57.92 - DVTRCLI OF INTEST, PART UNSP, W/O PERF OR ABSCESS W/O BLEED (2) GI bleed Current Visit: Yes Status: Acute Code(s): K92.2 - GASTROINTESTINAL HEMORRHAGE, UNSPECIFIED (3) UTI (urinary tract infection) Current Visit: Yes Status: Acute Code(s): N39.0 - URINARY TRACT INFECTION, SITE NOT SPECIFIED (4) Atelectasis of both lungs Current Visit: Yes Status: Acute Code(s): J98.11 - ATELECTASIS (5) Sinus tachycardia Current Visit: Yes Status: Resolved Code(s): R00.0 - TACHYCARDIA, UNSPECIFIED (6) HTN (hypertension) Current Visit: Yes Status: Chronic Code(s): I10 - ESSENTIAL (PRIMARY) HYPERTENSION (7) Hyperlipidemia Current Visit: Yes Status: Chronic Code(s): E78.5 - HYPERLIPIDEMIA, UNSPECIFIED - Discharge Discharge Date: 08/25/24 Disposition: Home, Self-Care Condition: Good Prescriptions: New Amox Tr/Potass Clav. 875 mg [Augmentin 875-125 Tablet] 875 mg PO Q8H 10 Days #30 tablet Nystatin Powder 15 gm [Nystop Powder 15 gm] 1 gm TP BID PANTOPRAZOLE 40 mg Tablet [Protonix 40MG Tablet] 40 mg PO BID 30 Days #60 tab Sodium Bicarbonate 650 mg PO BID 3 Days #6 tablet Continue Cyanocobalamin 500 Mcg [Vitamin B-12 500 MCG] 500 mcg PO DAILY Lisinopril 20 mg [Zestril 20 MG] 40 mg PO DAILY Carvedilol 12.5 mg [Coreg 12.5 mg] 12.5 mg PO BID Pravastatin Sodium 20 mg PO DAILY Amlodipine Besylate 5 mg [Norvasc 5 mg] 5 mg PO DAILY Acetaminophen [Tylenol Arthritis] 1,300 mg PO Q8HPRN PRN PRN Reason: Pain Aspirin [Adult Aspirin Regimen] 81 mg PO DAILY Nabumetone 1,000 mg PO DAILY Morphine Sulfate Cr 15 mg [Ms Contin 15 MG] 15 mg PO BID Follow up with: BONIFACIO ELLSWORTH MD [Primary Care Provider] - PASTOR FRIEDMAN [COURTESY STAFF] - 2 weeks
[2024-08-25 12:16] LABS: Creatinine 1 0.94 mg/dL (0.52-1.04); Potassium 3.2 mmol/L (3.5-5.1)
[2024-08-25 12:29] LABS: ANION GAP 13.9 MEQ/L (5-15); Calcium 8.1 mg/dL (8.4-10.2)
--- NOTE | 2024-08-25 13:53 | PCM.NOTE ---
Date and Time: 08/25/24 3372 Subjective Assessment: is a 88 year old female with PMHX of HTN, Hyperlipidemia, DJD, OA, bladder cancer, and cervical cancer admitted 08/23/24 with diverticulitis after presenting to ED with complaints of passing blood from rectum - bright red. She reports she has been vomiting without blood or coffee grounds. + LLQ tenderness on exam without peritoneal signs or masses - no pain at rest. CT abd/pelvis shows diverticulitis. IP will start IV antibiotics, PPI BID, IV fluids, antiemetic, and IV pain meds PRN. Will place pt NPO for now. Surgery consulted. Patient to have colonoscopy outpatient. Patient tolerating a diet with no abdominal pain, nausea, or vomiting. No BRB per rectum with BM. Hgb stable. Ucult with NGTD -will follow with PCP. Colonoscopy to be set up OP with general surgery. Patient denied diarrhea this morning but nursing staff reports patient has had at least three bowel movements. Co2 level is low, will initiate a bicarb drip and check stools. Patient wanting to discharge but agreeable to stay for treatment. - Review of Systems Constitutional: No Symptoms Eyes: No Symptoms Ears, Nose, & Throat: No Symptoms Respiratory: No Symptoms Cardiac: No Symptoms Abdominal/Gastrointestinal: Diarrhea Genitourinary Symptoms: No Symptoms Musculoskeletal: No Symptoms Skin: No Symptoms Neurological: No Symptoms Psychological: No Symptoms Endocrine: No Symptoms Hematologic/Lymphatic: No Symptoms Immunological/Allergic: No Symptoms Objective Exam General Appearance: no apparent distress Neurologic Exam: alert, oriented x 3, cooperative Skin Exam: normal color Eye Exam: PERRL Ears, Nose, Throat Exam: normal ENT inspection Neck Exam: normal inspection Respiratory Exam: normal breath sounds, lungs clear Cardiovascular Exam: regular rate/rhythm, normal heart sounds Gastrointestinal/Abdomen Exam: soft, normal bowel sounds Extremity Exam: normal inspection Back Exam: normal inspection Pelvic Exam: deferred Rectal Exam: deferred Objective Data Vital Signs: Vital Signs - 24 hr Temp Pulse Resp BP Pulse Ox 08/25/24 11:30 98.2 F 70 16 92/45 93 L 08/25/24 06:59 98.3 F 87 16 119/58 95 08/25/24 04:00 98.6 F 91 H 18 120/68 90 L 08/25/24 00:00 98.4 F 104 H 18 109/55 92 L 01/20/25 19:58 98.3 F 85 20 100/49 93 L 08/24/24 16:00 97.1 F 78 16 99/63 94 L Pain Assessment - Last Documented Pain Intensity 0 Intake and Output: Intake & Output 08/23/24 08/24/24 08/25/24 08/26/24 11:59 11:59 11:59 11:59 Intake Total 1134 2651 Balance 1134 2651 Weight 85 kg 84.4 kg Lab Results: Lab Results-Last 24 Hours 08/24/24 08/24/24 08/25/24 Range/Units 16:37 21:09 04:39 WBC 12.0 H (3.98-10.04) x10^3/uL RBC 4.48 (3.93-5.22) x10^6/uL Hgb 13.0 (11.2-15.7) g/dL Hct 41.7 (34.1-44.9) % MCV 93.1 (79.4-94.8) fL MCH 29.0 (25.6-32.2) pg MCHC 31.2 L (32.2-35.5) g/dL RDW 14.3 (11.7-14.4) % Plt Count 131 L (182-369) x10^3/uL MPV 10.0 (9.4-12.3) fL Gran % 74.2 H (34.0-71.1) % Immature Gran % (Auto) 0.3 (0.001-0.429) % Nucleat RBC Rel Count 0.0 (0.00-0.2) % Eos # (Auto) 0.27 (0.04-0.36) x10^3/uL Immature Gran # (Auto) 0.04 H (0.001-0.031) x10^3u/L Absolute Lymphs (auto) 1.94 (1.18-3.74) x10^3/uL Absolute Monos (auto) 0.80 (0.24-0.86) x10^3/uL Absolute Nucleated RBC 0.00 (0.00-0.012) x10^3u/L Lymphocytes % 16.2 L (19.3-51.7) % Monocytes % 6.7 (4.7-12.5) % Eosinophils % 2.3 (0.7-5.8) % Basophils % 0.3 (0.1-1.2) % Absolute Granulocytes 8.89 H (1.56-6.13) x10^3/uL Basophils # 0.03 (0.01-0.08) x10^3/uL Sodium (135-145) mmol/L Potassium (3.5-5.1) mmol/L Chloride (98-107) mmol/L Carbon Dioxide (22-30) mmol/L Anion Gap (5-15) MEQ/L BUN (7-17) mg/dL Creatinine (0.52-1.04) mg/dL Estimated GFR ML/MIN Glucose (74-106) mg/dL POC Glucometer 78 85 (74 to 106) mg/dL Calcium (8.4-10.2) mg/dL Total Bilirubin (0.2-1.3) mg/dL AST (14-36) U/L ALT (0-35) U/L Alkaline Phosphatase (38-126) U/L Serum Total Protein (6.3-8.2) g/dL Albumin (3.5-5.0) g/dL Slides for Path Review YES 08/25/24 08/25/24 08/25/24 Range/Units 04:39 07:17 11:15 WBC (3.98-10.04) x10^3/uL RBC (3.93-5.22) x10^6/uL Hgb (11.2-15.7) g/dL Hct (34.1-44.9) % MCV (79.4-94.8) fL MCH (25.6-32.2) pg MCHC (32.2-35.5) g/dL RDW (11.7-14.4) % Plt Count (182-369) x10^3/uL MPV (9.4-12.3) fL Gran % (34.0-71.1) % Immature Gran % (Auto) (0.001-0.429) % Nucleat RBC Rel Count (0.00-0.2) % Eos # (Auto) (0.04-0.36) x10^3/uL Immature Gran # (Auto) (0.001-0.031) x10^3u/L Absolute Lymphs (auto) (1.18-3.74) x10^3/uL Absolute Monos (auto) (0.24-0.86) x10^3/uL Absolute Nucleated RBC (0.00-0.012) x10^3u/L Lymphocytes % (19.3-51.7) % Monocytes % (4.7-12.5) % Eosinophils % (0.7-5.8) % Basophils % (0.1-1.2) % Absolute Granulocytes (1.56-6.13) x10^3/uL Basophils # (0.01-0.08) x10^3/uL Sodium 132 L (135-145) mmol/L Potassium 3.5 (3.5-5.1) mmol/L Chloride 105 (98-107) mmol/L Carbon Dioxide 17 L (22-30) mmol/L Anion Gap 13.7 (5-15) MEQ/L BUN 29 H (7-17) mg/dL Creatinine 0.85 (0.52-1.04) mg/dL Estimated GFR 65.5 ML/MIN Glucose 77 (74-106) mg/dL POC Glucometer 66 L 81 (74 to 106) mg/dL Calcium 8.2 L (8.4-10.2) mg/dL Total Bilirubin 1.00 (0.2-1.3) mg/dL AST 30 (14-36) U/L ALT 13 (0-35) U/L Alkaline Phosphatase 51 (38-126) U/L Serum Total Protein 5.6 L (6.3-8.2) g/dL Albumin 3.1 L (3.5-5.0) g/dL Slides for Path Review 08/25/24 08/25/24 Range/Units 12:00 13:10 WBC (3.98-10.04) x10^3/uL RBC (3.93-5.22) x10^6/uL Hgb (11.2-15.7) g/dL Hct (34.1-44.9) % MCV (79.4-94.8) fL MCH (25.6-32.2) pg MCHC (32.2-35.5) g/dL RDW (11.7-14.4) % Plt Count (182-369) x10^3/uL MPV (9.4-12.3) fL Gran % (34.0-71.1) % Immature Gran % (Auto) (0.001-0.429) % Nucleat RBC Rel Count (0.00-0.2) % Eos # (Auto) (0.04-0.36) x10^3/uL Immature Gran # (Auto) (0.001-0.031) x10^3u/L Absolute Lymphs (auto) (1.18-3.74) x10^3/uL Absolute Monos (auto) (0.24-0.86) x10^3/uL Absolute Nucleated RBC (0.00-0.012) x10^3u/L Lymphocytes % (19.3-51.7) % Monocytes % (4.7-12.5) % Eosinophils % (0.7-5.8) % Basophils % (0.1-1.2) % Absolute Granulocytes (1.56-6.13) x10^3/uL Basophils # (0.01-0.08) x10^3/uL Sodium 132 L (135-145) mmol/L Potassium 3.2 L (3.5-5.1) mmol/L Chloride 106 (98-107) mmol/L Carbon Dioxide 16 L* 15 L* (22-30) mmol/L Anion Gap 13.9 (5-15) MEQ/L BUN 30 H (7-17) mg/dL Creatinine 0.94 (0.52-1.04) mg/dL Estimated GFR 58.0 ML/MIN Glucose 84 (74-106) mg/dL POC Glucometer (74 to 106) mg/dL Calcium 8.1 L (8.4-10.2) mg/dL Total Bilirubin (0.2-1.3) mg/dL AST (14-36) U/L ALT (0-35) U/L Alkaline Phosphatase (38-126) U/L Serum Total Protein (6.3-8.2) g/dL Albumin (3.5-5.0) g/dL Slides for Path Review Multi-Disciplinary Progress Notes: Multi-Disciplinary Progress Notes 08/25/24 11:30 Case Management Note by Antonina Jacome S/W PATIENT- SHE CONTINUES TO PLAN TO TRANSITION HOME TO HER PLF. SHE REPORTS SHE HAS LOTS OF HELP AT HOME AND DENIES ANY NEW NEEDS Initialized on 08/25/24 11:30 - END OF NOTE Assessment/Plan (1) Diverticulitis Current Visit: Yes Status: Acute Assessment & Plan: - CBC, CMP reviewed - WBC at 14.1>11.4 -trend - Tele - Levaquin and flagyl IV - pt with allergy to pcn - NPO - BC x2 - Morphine IV PRN pain - Zofran PRN nausea - LA 1.5 - IV fluids - CT Abd/Pelvis reviewed and concerning for infectious/inflammatory diverticulitis, new finding. The possibility of complicated diverticular disease cannot be excluded. 08/25: -CMP, CBC reviewed - WBC down-trending 12.0<14.1 -Continue levaquin/flagyl Code(s): K57.92 - DVTRCLI OF INTEST, PART UNSP, W/O PERF OR ABSCESS W/O BLEED (2) GI bleed Current Visit: Yes Status: Acute Assessment & Plan: - Hgb -trend - Protonix BID - NPO - IVF - tele 08/25: -Hgb level reviewed and stable at 13.0 -Surgery will follow as OP for colonoscopy ##Hyponatremia -secondary to hypovolemia ##Metabolic acidosis -secondary to diarrhea -co2 reviewed at 17, started 1300mg of oral bicarb - recheck of Co2 at 15 - will initiate bicarb drip ## Hypokalemia -secondary to GI loss -replenish per potassium protocol - potassium level reviewed at 3.2 - recheck labs after replenishment Code(s): K92.2 - GASTROINTESTINAL HEMORRHAGE, UNSPECIFIED (3) UTI (urinary tract infection) Current Visit: Yes Status: Acute Assessment & Plan: -UA suspicious for infection - continue Levaquin - follow culture 08/25: -Ucult NGTd - will follow-continue levaquin and flagyl Code(s): N39.0 - URINARY TRACT INFECTION, SITE NOT SPECIFIED (4) Atelectasis of both lungs Current Visit: Yes Status: Acute Assessment & Plan: - as seen on CT - IV antibiotics - Supplemental oxygen as needed to maintain spo2> 92% -RA at baseline -IS Code(s): J98.11 - ATELECTASIS (5) Sinus tachycardia Current Visit: Yes Status: Acute Assessment & Plan: - Tele - 2:2 GI bleed, diverticulitis, BLL atelectasis, UTI 08/25: -HR improving now in the 80-90's Code(s): R00.0 - TACHYCARDIA, UNSPECIFIED (6) HTN (hypertension) Current Visit: Yes Status: Chronic Assessment & Plan: - Continue home BP meds Code(s): I10 - ESSENTIAL (PRIMARY) HYPERTENSION (7) Hyperlipidemia Current Visit: Yes Status: Chronic Assessment & Plan: - continue statin VTE: SCD's PPI: Protonix Next of KIN: Son's D/C plan: 2-3 days Codes status:Full Code(s): K57.92 - DVTRCLI OF INTEST, PART UNSP, W/O PERF OR ABSCESS W/O BLEED (2) GI bleed Current Visit: Yes Status: Acute Code(s): K92.2 - GASTROINTESTINAL HEMORRHAGE, UNSPECIFIED (3) UTI (urinary tract infection) Current Visit: Yes Status: Acute Code(s): N39.0 - URINARY TRACT INFECTION, SITE NOT SPECIFIED (4) Atelectasis of both lungs Current Visit: Yes Status: Acute Code(s): J98.11 - ATELECTASIS (5) Sinus tachycardia Current Visit: Yes Status: Resolved Code(s): R00.0 - TACHYCARDIA, UNSPECIFIED (6) HTN (hypertension) Current Visit: Yes Status: Chronic Code(s): I10 - ESSENTIAL (PRIMARY) HYPERTENSION (7) Hyperlipidemia Current Visit: Yes Status: Chronic Code(s): E78.5 - HYPERLIPIDEMIA, UNSPECIFIED (8) Hypokalemia Current Visit: Yes Status: Acute Code(s): E87.6 - HYPOKALEMIA (9) Metabolic acidosis Current Visit: Yes Status: Acute Code(s): E87.20 - ACIDOSIS, UNSPECIFIED (10) Diarrhea Current Visit: Yes Status: Acute Code(s): R19.7 - DIARRHEA, UNSPECIFIED
[2024-08-25] MEDS: PHARMACY DOSING REQUEST MC ONE (14:26)
[2024-08-25] MEDS: POTASSIUM CHLORIDE 20 mEq IN WATER 100ML 100 ML IV SCH (14:41)
[2024-08-25] MEDS: Flagyl 500 MG PO SCH (14:41)
[2024-08-25] MEDS: Sodium Bicarbonate 50 MEQ/50 ML VIAL*** 150 MEQ in Dextrose 5%/Water IV Soln. 1000 ML 1... IV SCH (14:41)
[2024-08-25] MEDS: Levofloxacin 500 MG Tablet PO SCH (16:06)
[2024-08-25] MEDS: Levofloxacin 250MG Tablet PO SCH (16:06)
[2024-08-25 18:12] LABS: ANION GAP 9.7 MEQ/L (5-15); Calcium 8.4 mg/dL (8.4-10.2); Creatinine 1 0.91 mg/dL (0.52-1.04); EST GLOMERULAR FILTRATION RATE 60.3 ML/MIN; Potassium 3.3 mmol/L (3.5-5.1)
[2024-08-25 19:16] LABS: 027 TOX PROD PRESUMPTIVE NEGATIVE (NEGATIVE); TOXIGENIC C. DIFF ORG NEGATIVE (NEGATIVE)
[2024-08-25] MEDS: K-LYTE PO SCH (19:46)
[2024-08-26 04:02] VITALS: RESP 20
--- NOTE | 2024-08-26 04:56 | PCM.NOTE ---
Date and Time: 08/26/24 0455 Subjective Assessment: is a 88 year old female with PMHX of HTN, Hyperlipidemia, DJD, OA, bladder cancer, and cervical cancer admitted 08/23/24 with diverticulitis after presenting to ED with complaints of passing blood from rectum - bright red. She reports she has been vomiting without blood or coffee grounds. + LLQ tenderness on exam without peritoneal signs or masses - no pain at rest. CT abd/pelvis shows diverticulitis. IP will start IV antibiotics, PPI BID, IV fluids, antiemetic, and IV pain meds PRN. Will place pt NPO for now. Surgery consulted. Patient to have colonoscopy outpatient. Patient tolerating a diet with no abdominal pain, nausea, or vomiting. No BRB per rectum with BM. Hgb stable. Ucult with NGTD -will follow with PCP. Colonoscopy to be set up OP with general surgery. Patient denied diarrhea this morning but nursing staff reports patient has had at least three bowel movements. Co2 level is low, will initiate a bicarb drip and check stools. Patient wanting to discharge but agreeable to stay for treatment. Objective Data Vital Signs: Vital Signs - 24 hr Temp Pulse Resp BP Pulse Ox 08/26/24 04:00 97.6 F 76 20 111/52 95 08/26/24 00:00 97.4 F 79 18 143/60 93 L 08/25/24 20:00 97.8 F 71 16 93/51 96 08/25/24 16:00 97.7 F 70 16 116/56 95 08/25/24 11:30 98.2 F 70 16 92/45 93 L 08/25/24 06:59 98.3 F 87 16 119/58 95 Pain Assessment - Last Documented Pain Intensity 0 Intake and Output: Intake & Output 08/23/24 08/24/24 08/25/24 08/26/24 11:59 11:59 11:59 11:59 Intake Total 1134 2651 1700 Balance 1134 2651 1700 Weight 85 kg 84.4 kg Lab Results: Lab Results-Last 24 Hours 08/25/24 08/25/24 08/25/24 Range/Units 04:39 04:39 07:17 WBC 12.0 H (3.98-10.04) x10^3/uL RBC 4.48 (3.93-5.22) x10^6/uL Hgb 13.0 (11.2-15.7) g/dL Hct 41.7 (34.1-44.9) % MCV 93.1 (79.4-94.8) fL MCH 29.0 (25.6-32.2) pg MCHC 31.2 L (32.2-35.5) g/dL RDW 14.3 (11.7-14.4) % Plt Count 131 L (182-369) x10^3/uL MPV 10.0 (9.4-12.3) fL Gran % 74.2 H (34.0-71.1) % Immature Gran % (Auto) 0.3 (0.001-0.429) % Nucleat RBC Rel Count 0.0 (0.00-0.2) % Eos # (Auto) 0.27 (0.04-0.36) x10^3/uL Immature Gran # (Auto) 0.04 H (0.001-0.031) x10^3u/L Absolute Lymphs (auto) 1.94 (1.18-3.74) x10^3/uL Absolute Monos (auto) 0.80 (0.24-0.86) x10^3/uL Absolute Nucleated RBC 0.00 (0.00-0.012) x10^3u/L Lymphocytes % 16.2 L (19.3-51.7) % Monocytes % 6.7 (4.7-12.5) % Eosinophils % 2.3 (0.7-5.8) % Basophils % 0.3 (0.1-1.2) % Absolute Granulocytes 8.89 H (1.56-6.13) x10^3/uL Basophils # 0.03 (0.01-0.08) x10^3/uL Sodium 132 L (135-145) mmol/L Potassium 3.5 (3.5-5.1) mmol/L Chloride 105 (98-107) mmol/L Carbon Dioxide 17 L (22-30) mmol/L Anion Gap 13.7 (5-15) MEQ/L BUN 29 H (7-17) mg/dL Creatinine 0.85 (0.52-1.04) mg/dL Estimated GFR 65.5 ML/MIN Glucose 77 (74-106) mg/dL POC Glucometer 66 L (74 to 106) mg/dL Calcium 8.2 L (8.4-10.2) mg/dL Total Bilirubin 1.00 (0.2-1.3) mg/dL AST 30 (14-36) U/L ALT 13 (0-35) U/L Alkaline Phosphatase 51 (38-126) U/L Serum Total Protein 5.6 L (6.3-8.2) g/dL Albumin 3.1 L (3.5-5.0) g/dL C. difficile Screen (NEGATIVE) C.difficile 027-NAP1-B1 (NEGATIVE) Slides for Path Review YES 08/25/24 08/25/24 08/25/24 Range/Units 11:15 12:00 13:10 WBC (3.98-10.04) x10^3/uL RBC (3.93-5.22) x10^6/uL Hgb (11.2-15.7) g/dL Hct (34.1-44.9) % MCV (79.4-94.8) fL MCH (25.6-32.2) pg MCHC (32.2-35.5) g/dL RDW (11.7-14.4) % Plt Count (182-369) x10^3/uL MPV (9.4-12.3) fL Gran % (34.0-71.1) % Immature Gran % (Auto) (0.001-0.429) % Nucleat RBC Rel Count (0.00-0.2) % Eos # (Auto) (0.04-0.36) x10^3/uL Immature Gran # (Auto) (0.001-0.031) x10^3u/L Absolute Lymphs (auto) (1.18-3.74) x10^3/uL Absolute Monos (auto) (0.24-0.86) x10^3/uL Absolute Nucleated RBC (0.00-0.012) x10^3u/L Lymphocytes % (19.3-51.7) % Monocytes % (4.7-12.5) % Eosinophils % (0.7-5.8) % Basophils % (0.1-1.2) % Absolute Granulocytes (1.56-6.13) x10^3/uL Basophils # (0.01-0.08) x10^3/uL Sodium 132 L (135-145) mmol/L Potassium 3.2 L (3.5-5.1) mmol/L Chloride 106 (98-107) mmol/L Carbon Dioxide 16 L* 15 L* (22-30) mmol/L Anion Gap 13.9 (5-15) MEQ/L BUN 30 H (7-17) mg/dL Creatinine 0.94 (0.52-1.04) mg/dL Estimated GFR 58.0 ML/MIN Glucose 84 (74-106) mg/dL POC Glucometer 81 (74 to 106) mg/dL Calcium 8.1 L (8.4-10.2) mg/dL Total Bilirubin (0.2-1.3) mg/dL AST (14-36) U/L ALT (0-35) U/L Alkaline Phosphatase (38-126) U/L Serum Total Protein (6.3-8.2) g/dL Albumin (3.5-5.0) g/dL C. difficile Screen (NEGATIVE) C.difficile 027-NAP1-B1 (NEGATIVE) Slides for Path Review 08/25/24 08/25/24 08/25/24 Range/Units 16:23 17:45 18:00 WBC (3.98-10.04) x10^3/uL RBC (3.93-5.22) x10^6/uL Hgb (11.2-15.7) g/dL Hct (34.1-44.9) % MCV (79.4-94.8) fL MCH (25.6-32.2) pg MCHC (32.2-35.5) g/dL RDW (11.7-14.4) % Plt Count (182-369) x10^3/uL MPV (9.4-12.3) fL Gran % (34.0-71.1) % Immature Gran % (Auto) (0.001-0.429) % Nucleat RBC Rel Count (0.00-0.2) % Eos # (Auto) (0.04-0.36) x10^3/uL Immature Gran # (Auto) (0.001-0.031) x10^3u/L Absolute Lymphs (auto) (1.18-3.74) x10^3/uL Absolute Monos (auto) (0.24-0.86) x10^3/uL Absolute Nucleated RBC (0.00-0.012) x10^3u/L Lymphocytes % (19.3-51.7) % Monocytes % (4.7-12.5) % Eosinophils % (0.7-5.8) % Basophils % (0.1-1.2) % Absolute Granulocytes (1.56-6.13) x10^3/uL Basophils # (0.01-0.08) x10^3/uL Sodium 133 L (135-145) mmol/L Potassium 3.3 L (3.5-5.1) mmol/L Chloride 102 (98-107) mmol/L Carbon Dioxide 25 (22-30) mmol/L Anion Gap 9.7 (5-15) MEQ/L BUN 29 H (7-17) mg/dL Creatinine 0.91 (0.52-1.04) mg/dL Estimated GFR 60.3 ML/MIN Glucose 103 (74-106) mg/dL POC Glucometer 93 (74 to 106) mg/dL Calcium 8.4 (8.4-10.2) mg/dL Total Bilirubin (0.2-1.3) mg/dL AST (14-36) U/L ALT (0-35) U/L Alkaline Phosphatase (38-126) U/L Serum Total Protein (6.3-8.2) g/dL Albumin (3.5-5.0) g/dL C. difficile Screen NEGATIVE (NEGATIVE) C.difficile 027-NAP1-B1 PRESUMPTIVE NEGATIVE (NEGATIVE) Slides for Path Review 08/25/24 Range/Units 21:04 WBC (3.98-10.04) x10^3/uL RBC (3.93-5.22) x10^6/uL Hgb (11.2-15.7) g/dL Hct (34.1-44.9) % MCV (79.4-94.8) fL MCH (25.6-32.2) pg MCHC (32.2-35.5) g/dL RDW (11.7-14.4) % Plt Count (182-369) x10^3/uL MPV (9.4-12.3) fL Gran % (34.0-71.1) % Immature Gran % (Auto) (0.001-0.429) % Nucleat RBC Rel Count (0.00-0.2) % Eos # (Auto) (0.04-0.36) x10^3/uL Immature Gran # (Auto) (0.001-0.031) x10^3u/L Absolute Lymphs (auto) (1.18-3.74) x10^3/uL Absolute Monos (auto) (0.24-0.86) x10^3/uL Absolute Nucleated RBC (0.00-0.012) x10^3u/L Lymphocytes % (19.3-51.7) % Monocytes % (4.7-12.5) % Eosinophils % (0.7-5.8) % Basophils % (0.1-1.2) % Absolute Granulocytes (1.56-6.13) x10^3/uL Basophils # (0.01-0.08) x10^3/uL Sodium (135-145) mmol/L Potassium (3.5-5.1) mmol/L Chloride (98-107) mmol/L Carbon Dioxide (22-30) mmol/L Anion Gap (5-15) MEQ/L BUN (7-17) mg/dL Creatinine (0.52-1.04) mg/dL Estimated GFR ML/MIN Glucose (74-106) mg/dL POC Glucometer 77 (74 to 106) mg/dL Calcium (8.4-10.2) mg/dL Total Bilirubin (0.2-1.3) mg/dL AST (14-36) U/L ALT (0-35) U/L Alkaline Phosphatase (38-126) U/L Serum Total Protein (6.3-8.2) g/dL Albumin (3.5-5.0) g/dL C. difficile Screen (NEGATIVE) C.difficile 027-NAP1-B1 (NEGATIVE) Slides for Path Review Multi-Disciplinary Progress Notes: Multi-Disciplinary Progress Notes 08/25/24 11:30 Case Management Note by Antonina Jacome S/Akin PATIENT- SHE CONTINUES TO PLAN TO TRANSITION HOME TO HER PLF. SHE REPORTS SHE HAS LOTS OF HELP AT HOME AND DENIES ANY NEW NEEDS Initialized on 08/25/24 11:30 - END OF NOTE Assessment/Plan (1) Diverticulitis Current Visit: Yes Status: Acute Assessment & Plan: - CBC, CMP reviewed - WBC at 14.1>11.4 -trend - Tele - Levaquin and flagyl IV - pt with allergy to pcn - NPO - BC x2 - Morphine IV PRN pain - Zofran PRN nausea - LA 1.5 - IV fluids - CT Abd/Pelvis reviewed and concerning for infectious/inflammatory diverticulitis, new finding. The possibility of complicated diverticular disease cannot be excluded. 08/25: -CMP, CBC reviewed - WBC down-trending 12.0<14.1 -Continue levaquin/flagyl Code(s): K57.92 - DVTRCLI OF INTEST, PART UNSP, W/O PERF OR ABSCESS W/O BLEED (2) GI bleed Current Visit: Yes Status: Acute Assessment & Plan: - Hgb -trend - Protonix BID - NPO - IVF - tele 08/25: -Hgb level reviewed and stable at 13.0 -Surgery will follow as OP for colonoscopy ##Hyponatremia -secondary to hypovolemia ##Metabolic acidosis -secondary to diarrhea -co2 reviewed at 17, started 1300mg of oral bicarb - recheck of Co2 at 15 - will initiate bicarb drip ## Hypokalemia -secondary to GI loss -replenish per potassium protocol - potassium level reviewed at 3.2 - recheck labs after replenishment Code(s): K92.2 - GASTROINTESTINAL HEMORRHAGE, UNSPECIFIED (3) UTI (urinary tract infection) Current Visit: Yes Status: Acute Assessment & Plan: -UA suspicious for infection - continue Levaquin - follow culture 08/25: -Ucult NGTd - will follow-continue levaquin and flagyl Code(s): N39.0 - URINARY TRACT INFECTION, SITE NOT SPECIFIED (4) Atelectasis of both lungs Current Visit: Yes Status: Acute Assessment & Plan: - as seen on CT - IV antibiotics - Supplemental oxygen as needed to maintain spo2> 92% -RA at baseline -IS Code(s): J98.11 - ATELECTASIS (5) Sinus tachycardia Current Visit: Yes Status: Acute Assessment & Plan: - Tele - 2:2 GI bleed, diverticulitis, BLL atelectasis, UTI 08/25: -HR improving now in the 80-90's Code(s): R00.0 - TACHYCARDIA, UNSPECIFIED (6) HTN (hypertension) Current Visit: Yes Status: Chronic Assessment & Plan: - Continue home BP meds Code(s): I10 - ESSENTIAL (PRIMARY) HYPERTENSION (7) Hyperlipidemia Current Visit: Yes Status: Chronic Assessment & Plan: - continue statin VTE: SCD's PPI: Protonix Next of KIN: Son's D/C plan: 2-3 days Codes status:Full Code(s): K57.92 - DVTRCLI OF INTEST, PART UNSP, W/O PERF OR ABSCESS W/O BLEED (2) GI bleed Current Visit: Yes Status: Acute Code(s): K92.2 - GASTROINTESTINAL HEMORRHAGE, UNSPECIFIED (3) UTI (urinary tract infection) Current Visit: Yes Status: Acute Code(s): N39.0 - URINARY TRACT INFECTION, SITE NOT SPECIFIED (4) Atelectasis of both lungs Current Visit: Yes Status: Acute Code(s): J98.11 - ATELECTASIS (5) Sinus tachycardia Current Visit: Yes Status: Resolved Code(s): R00.0 - TACHYCARDIA, UNSPECIFIED (6) HTN (hypertension) Current Visit: Yes Status: Chronic Code(s): I10 - ESSENTIAL (PRIMARY) HYPERTENSION (7) Hyperlipidemia Current Visit: Yes Status: Chronic Code(s): E78.5 - HYPERLIPIDEMIA, UNSPECIFIED (8) Hypokalemia Current Visit: Yes Status: Acute Code(s): E87.6 - HYPOKALEMIA (9) Metabolic acidosis Current Visit: Yes Status: Acute Code(s): E87.20 - ACIDOSIS, UNSPECIFIED (10) Diarrhea Current Visit: Yes Status: Acute Code(s): R19.7 - DIARRHEA, UNSPECIFIED
[2024-08-26 05:07] LABS: Absolute Neutrophil Ct (ANC) 5.61 x10^3/uL (1.56-6.13); BASOPHIL % 0.1 % (0.1-1.2); Basophil (Absolute #) 0.01 x10^3/uL (0.01-0.08); Eosinophil % 3.4 % (0.7-5.8); Eosinophil (Absolute #) 0.26 x10^3/uL (0.04-0.36); Hematocrit 37.9 % (34.1-44.9); Hemoglobin 12.6 g/dL (11.2-15.7); IMMATURE GRAN # 0.01 x10^3u/L (0.001-0.031); IMMATURE GRAN % 0.1 % (0.001-0.429); Lymphocyte (Absolute #) 1.22 x10^3/uL (1.18-3.74); Lymphocytes % 15.8 % (19.3-51.7); Mean Corpuscular Hemoglobin 29.9 pg (25.6-32.2); Mean Corpuscular Hgb Concent. 33.2 g/dL (32.2-35.5); Monocyte (Absolute #) 0.59 x10^3/uL (0.24-0.86); Monocytes % 7.7 % (4.7-12.5); Neutrophil % 72.9 % (34.0-71.1); Platelet Count 154 x10^3/uL (182-369); Red Blood Count 4.21 x10^6/uL (3.93-5.22); Red Cell Distribution Width 14.1 % (11.7-14.4); White Blood Count 7.7 x10^3/uL (3.98-10.04)
[2024-08-26 05:34] LABS: ALBUMIN 3.2 g/dL (3.5-5.0); ANION GAP 9.5 MEQ/L (5-15); BILIRUBIN,TOTAL 0.9 mg/dL (0.2-1.3); Calcium 8.3 mg/dL (8.4-10.2); Creatinine 1 0.8 mg/dL (0.52-1.04); EST GLOMERULAR FILTRATION RATE 70.4 ML/MIN; Potassium 4.1 mmol/L (3.5-5.1); Total Protein 5.8 g/dL (6.3-8.2)
[2024-08-26] MEDS: MAGNESIUM SULF 2 G/50 ML BAG 2 GM/50 ML PIGGYBACK IV ONE (07:40)
--- NOTE | 2024-08-26 11:03 | PCM.DS ---
Discharge Summary Date of Admission: 08/23/24 12:45 Date of Discharge: 08/26/24 Admitting Physician: NERISSA ROONEY MD Consults: Consults on Case 08/24/24 09:42 Consult Surgery ROUTINE Primary Care Provider: SENG,BONIFACIO Allergies Allergies Penicillins Allergy (Verified 08/23/24 09:47) ondansetron [From Zofran] Adverse Reaction (Verified 08/23/24 09:47) caused confusion, dizziness, etc. Hospital Summary - Hospital Course Hospital Course: is a 88 year old female with PMHX of HTN, Hyperlipidemia, DJD, OA, bladder cancer, and cervical cancer admitted 08/23/24 with diverticulitis after presenting to ED with complaints of passing blood from rectum - bright red. She reports she has been vomiting without blood or coffee grounds. + LLQ tenderness on exam without peritoneal signs or masses - no pain at rest. CT abd/pelvis shows diverticulitis. IP will start IV antibiotics, PPI BID, IV fluids, antiemetic, and IV pain meds PRN. Will place pt NPO for now. Surgery consulted. Patient to have colonoscopy outpatient. Patient tolerating a diet with no abdominal pain, nausea, or vomiting. No BRB per rectum with BM. Hgb stable. Ucult with NGTD -will follow with PCP. Colonoscopy to be set up OP with general surgery. Will discharge home with Augmentin - advised close follow up with surgery and PCP. Patient agreeable to plan and discharge. Discharge Note New Diagnosis:Diverticulitis New Medications: Augmentin Follow Up: pcp/surgery Latest Assessment & Plan - CBC, CMP reviewed - WBC at 14.1>11.4 -trend - Tele - Levaquin and flagyl IV - pt with allergy to pcn - NPO - BC x2 - Morphine IV PRN pain - Zofran PRN nausea - LA 1.5 - IV fluids - CT Abd/Pelvis reviewed and concerning for infectious/inflammatory diverticulitis, new finding. The possibility of complicated diverticular disease cannot be excluded. 08/25: -CMP, CBC reviewed - WBC down-trending 12.0<14.1 -Continue levaquin/flagyl Code(s): K57.92 - DVTRCLI OF INTEST, PART UNSP, W/O PERF OR ABSCESS W/O BLEED (2) GI bleed Current Visit: Yes Status: Acute Assessment & Plan: - Hgb -trend - Protonix BID - NPO - IVF - tele 08/25: -Hgb level reviewed and stable at 13.0 -Surgery will follow as OP for colonoscopy 08/06: hgb stable at 12.6 ##Hyponatremia -secondary to hypovolemia 08/26: -will need follow up labs with pcp in one week ##Metabolic acidosis -secondary to diarrhea -co2 reviewed at 17, started 1300mg of oral bicarb - recheck of Co2 at 15 - will initiate bicarb drip 08/26: resolved ## Hypokalemia -secondary to GI loss -replenish per potassium protocol - potassium level reviewed at 3.2 - recheck labs after replenishment Code(s): K92.2 - GASTROINTESTINAL HEMORRHAGE, UNSPECIFIED (3) UTI (urinary tract infection) Current Visit: Yes Status: Acute Assessment & Plan: -UA suspicious for infection - continue Levaquin - follow culture 08/25: -Ucult NGTd - will follow-continue Augmentin Code(s): N39.0 - URINARY TRACT INFECTION, SITE NOT SPECIFIED (4) Atelectasis of both lungs Current Visit: Yes Status: Acute Assessment & Plan: - as seen on CT - IV antibiotics - Supplemental oxygen as needed to maintain spo2> 92% -RA at baseline -IS Code(s): J98.11 - ATELECTASIS (5) Sinus tachycardia Current Visit: Yes Status: Acute Assessment & Plan: - Tele - 2:2 GI bleed, diverticulitis, BLL atelectasis, UTI 08/25: -HR improving now in the 80-90's Code(s): R00.0 - TACHYCARDIA, UNSPECIFIED (6) HTN (hypertension) Current Visit: Yes Status: Chronic Assessment & Plan: - Continue home BP meds Code(s): I10 - ESSENTIAL (PRIMARY) HYPERTENSION (7) Hyperlipidemia Current Visit: Yes Status: Chronic Assessment & Plan: - continue statin VTE: SCD's PPI: Protonix Next of KIN: Son's D/C plan: 2-3 days Codes status:Full I spent 35 minutes [id number] with the patient on the day of discharge performing discharge exam, discussing hospital stay and discharge instructions with patient and caregivers, preparation of discharge records, prescriptions & referral forms and addressing any questions/concerns the patient had as documented above. - Vitals & Intake/Output Vital Signs: Vital Signs Temperature 97.5 F 08/26/24 07:51 Pulse Rate 84 08/26/24 07:51 Respiratory Rate 20 08/26/24 07:51 Blood Pressure 145/79 08/26/24 07:51 O2 Sat by Pulse Oximetry 93 L 08/26/24 07:51 Intake & Output: Intake & Output 08/23/24 08/24/24 08/25/24 08/26/24 11:59 11:59 11:59 11:59 Intake Total 1134 2651 1820 Balance 1134 2651 1820 Weight 85 kg 84.4 kg - Lab Result Diagrams: 08/26/24 04:59 08/26/24 04:59 Lab Results-Last 24 Hrs: Lab Results-Last 24 Hours 08/25/24 08/25/24 08/25/24 Range/Units 11:15 12:00 13:10 WBC (3.98-10.04) x10^3/uL RBC (3.93-5.22) x10^6/uL Hgb (11.2-15.7) g/dL Hct (34.1-44.9) % MCV (79.4-94.8) fL MCH (25.6-32.2) pg MCHC (32.2-35.5) g/dL RDW (11.7-14.4) % Plt Count (182-369) x10^3/uL MPV (9.4-12.3) fL Gran % (34.0-71.1) % Immature Gran % (Auto) (0.001-0.429) % Nucleat RBC Rel Count (0.00-0.2) % Eos # (Auto) (0.04-0.36) x10^3/uL Immature Gran # (Auto) (0.001-0.031) x10^3u/L Absolute Lymphs (auto) (1.18-3.74) x10^3/uL Absolute Monos (auto) (0.24-0.86) x10^3/uL Absolute Nucleated RBC (0.00-0.012) x10^3u/L Lymphocytes % (19.3-51.7) % Monocytes % (4.7-12.5) % Eosinophils % (0.7-5.8) % Basophils % (0.1-1.2) % Absolute Granulocytes (1.56-6.13) x10^3/uL Basophils # (0.01-0.08) x10^3/uL Sodium 132 L (135-145) mmol/L Potassium 3.2 L (3.5-5.1) mmol/L Chloride 106 (98-107) mmol/L Carbon Dioxide 16 L* 15 L* (22-30) mmol/L Anion Gap 13.9 (5-15) MEQ/L BUN 30 H (7-17) mg/dL Creatinine 0.94 (0.52-1.04) mg/dL Estimated GFR 58.0 ML/MIN Glucose 84 (74-106) mg/dL POC Glucometer 81 (74 to 106) mg/dL Calcium 8.1 L (8.4-10.2) mg/dL Magnesium (1.6-2.3) mg/dL Total Bilirubin (0.2-1.3) mg/dL AST (14-36) U/L ALT (0-35) U/L Alkaline Phosphatase (38-126) U/L Serum Total Protein (6.3-8.2) g/dL Albumin (3.5-5.0) g/dL C. difficile Screen (NEGATIVE) C.difficile 027-NAP1-B1 (NEGATIVE) 08/25/24 08/25/24 08/25/24 Range/Units 16:23 17:45 18:00 WBC (3.98-10.04) x10^3/uL RBC (3.93-5.22) x10^6/uL Hgb (11.2-15.7) g/dL Hct (34.1-44.9) % MCV (79.4-94.8) fL MCH (25.6-32.2) pg MCHC (32.2-35.5) g/dL RDW (11.7-14.4) % Plt Count (182-369) x10^3/uL MPV (9.4-12.3) fL Gran % (34.0-71.1) % Immature Gran % (Auto) (0.001-0.429) % Nucleat RBC Rel Count (0.00-0.2) % Eos # (Auto) (0.04-0.36) x10^3/uL Immature Gran # (Auto) (0.001-0.031) x10^3u/L Absolute Lymphs (auto) (1.18-3.74) x10^3/uL Absolute Monos (auto) (0.24-0.86) x10^3/uL Absolute Nucleated RBC (0.00-0.012) x10^3u/L Lymphocytes % (19.3-51.7) % Monocytes % (4.7-12.5) % Eosinophils % (0.7-5.8) % Basophils % (0.1-1.2) % Absolute Granulocytes (1.56-6.13) x10^3/uL Basophils # (0.01-0.08) x10^3/uL Sodium 133 L (135-145) mmol/L Potassium 3.3 L (3.5-5.1) mmol/L Chloride 102 (98-107) mmol/L Carbon Dioxide 25 (22-30) mmol/L Anion Gap 9.7 (5-15) MEQ/L BUN 29 H (7-17) mg/dL Creatinine 0.91 (0.52-1.04) mg/dL Estimated GFR 60.3 ML/MIN Glucose 103 (74-106) mg/dL POC Glucometer 93 (74 to 106) mg/dL Calcium 8.4 (8.4-10.2) mg/dL Magnesium (1.6-2.3) mg/dL Total Bilirubin (0.2-1.3) mg/dL AST (14-36) U/L ALT (0-35) U/L Alkaline Phosphatase (38-126) U/L Serum Total Protein (6.3-8.2) g/dL Albumin (3.5-5.0) g/dL C. difficile Screen NEGATIVE (NEGATIVE) C.difficile 027-NAP1-B1 PRESUMPTIVE NEGATIVE (NEGATIVE) 08/25/24 08/26/24 08/26/24 Range/Units 21:04 04:59 04:59 WBC 7.7 (3.98-10.04) x10^3/uL RBC 4.21 (3.93-5.22) x10^6/uL Hgb 12.6 (11.2-15.7) g/dL Hct 37.9 (34.1-44.9) % MCV 90.0 (79.4-94.8) fL MCH 29.9 (25.6-32.2) pg MCHC 33.2 (32.2-35.5) g/dL RDW 14.1 (11.7-14.4) % Plt Count 154 L (182-369) x10^3/uL MPV 10.0 (9.4-12.3) fL Gran % 72.9 H (34.0-71.1) % Immature Gran % (Auto) 0.1 (0.001-0.429) % Nucleat RBC Rel Count 0.0 (0.00-0.2) % Eos # (Auto) 0.26 (0.04-0.36) x10^3/uL Immature Gran # (Auto) 0.01 (0.001-0.031) x10^3u/L Absolute Lymphs (auto) 1.22 (1.18-3.74) x10^3/uL Absolute Monos (auto) 0.59 (0.24-0.86) x10^3/uL Absolute Nucleated RBC 0.00 (0.00-0.012) x10^3u/L Lymphocytes % 15.8 L (19.3-51.7) % Monocytes % 7.7 (4.7-12.5) % Eosinophils % 3.4 (0.7-5.8) % Basophils % 0.1 (0.1-1.2) % Absolute Granulocytes 5.61 (1.56-6.13) x10^3/uL Basophils # 0.01 (0.01-0.08) x10^3/uL Sodium 130 L (135-145) mmol/L Potassium 4.1 D (3.5-5.1) mmol/L Chloride 98 (98-107) mmol/L Carbon Dioxide 27 (22-30) mmol/L Anion Gap 9.5 (5-15) MEQ/L BUN 22 H (7-17) mg/dL Creatinine 0.80 (0.52-1.04) mg/dL Estimated GFR 70.4 ML/MIN Glucose 85 (74-106) mg/dL POC Glucometer 77 (74 to 106) mg/dL Calcium 8.3 L (8.4-10.2) mg/dL Magnesium (1.6-2.3) mg/dL Total Bilirubin 0.90 (0.2-1.3) mg/dL AST 27 (14-36) U/L ALT 14 (0-35) U/L Alkaline Phosphatase 56 (38-126) U/L Serum Total Protein 5.8 L (6.3-8.2) g/dL Albumin 3.2 L (3.5-5.0) g/dL C. difficile Screen (NEGATIVE) C.difficile 027-NAP1-B1 (NEGATIVE) 08/26/24 08/26/24 Range/Units 04:59 07:39 WBC (3.98-10.04) x10^3/uL RBC (3.93-5.22) x10^6/uL Hgb (11.2-15.7) g/dL Hct (34.1-44.9) % MCV (79.4-94.8) fL MCH (25.6-32.2) pg MCHC (32.2-35.5) g/dL RDW (11.7-14.4) % Plt Count (182-369) x10^3/uL MPV (9.4-12.3) fL Gran % (34.0-71.1) % Immature Gran % (Auto) (0.001-0.429) % Nucleat RBC Rel Count (0.00-0.2) % Eos # (Auto) (0.04-0.36) x10^3/uL Immature Gran # (Auto) (0.001-0.031) x10^3u/L Absolute Lymphs (auto) (1.18-3.74) x10^3/uL Absolute Monos (auto) (0.24-0.86) x10^3/uL Absolute Nucleated RBC (0.00-0.012) x10^3u/L Lymphocytes % (19.3-51.7) % Monocytes % (4.7-12.5) % Eosinophils % (0.7-5.8) % Basophils % (0.1-1.2) % Absolute Granulocytes (1.56-6.13) x10^3/uL Basophils # (0.01-0.08) x10^3/uL Sodium (135-145) mmol/L Potassium (3.5-5.1) mmol/L Chloride (98-107) mmol/L Carbon Dioxide (22-30) mmol/L Anion Gap (5-15) MEQ/L BUN (7-17) mg/dL Creatinine (0.52-1.04) mg/dL Estimated GFR ML/MIN Glucose (74-106) mg/dL POC Glucometer 90 (74 to 106) mg/dL Calcium (8.4-10.2) mg/dL Magnesium 1.5 L (1.6-2.3) mg/dL Total Bilirubin (0.2-1.3) mg/dL AST (14-36) U/L ALT (0-35) U/L Alkaline Phosphatase (38-126) U/L Serum Total Protein (6.3-8.2) g/dL Albumin (3.5-5.0) g/dL C. difficile Screen (NEGATIVE) C.difficile 027-NAP1-B1 (NEGATIVE) Micro Results-Entire Visit: Microbiology 08/23/24 09:46 Urine Culture - Final Urine, Void NO GROWTH 08/25/24 Unknown Stool Culture Result 1 - Final Stool Not Reportable Stool Culture Result 2 - Final Not Reportable Stool Culture Result 3 - Final Not Reportable Stool Culture Result 4 - Final Not Reportable Stool Culture Organism Suscept - Final Not Reportable Campylobacter Result 1 - Final Not Reportable Campylobacter Result 2 - Final Not Reportable Campylobactor Result 3 - Final Not Reportable Campylobacter Result 4 - Final Not Reportable Campylobactor Susceptibility - Final Not Reportable 08/23/24 13:40 Blood Culture - Preliminary Blood 08/23/24 13:35 Blood Culture - Preliminary Blood Accuchecks Date 08/26/24 Date 08/25/24 Date 08/25/24 Time 07:51 Time 21:00 Time 16:27 - Procedures and Test Procedures and Tests throughout Hospitalization: Therapy Orders & Screens 08/23/24 13:02 Respiratory Therapy Consult ONCE Comment: Reason For Exam: Discharge Exam General Appearance: no apparent distress Neurologic Exam: alert, oriented x 3, cooperative Eye Exam: PERRL Ears, Nose, Throat Exam: normal ENT inspection Neck Exam: normal inspection Respiratory Exam: normal breath sounds, lungs clear Cardiovascular Exam: regular rate/rhythm, normal heart sounds Gastrointestinal/Abdomen Exam: soft, normal bowel sounds Pelvic Exam: deferred Rectal Exam: deferred Back Exam: normal inspection Extremity Exam: normal inspection Skin Exam: normal color Final Diagnosis/Problem List - Final Discharge Diagnosis/Problem (1) Diverticulitis Current Visit: Yes Status: Acute Code(s): K57.92 - DVTRCLI OF INTEST, PART UNSP, W/O PERF OR ABSCESS W/O BLEED (2) GI bleed Current Visit: Yes Status: Acute Code(s): K92.2 - GASTROINTESTINAL HEMORRHAGE, UNSPECIFIED (3) UTI (urinary tract infection) Current Visit: Yes Status: Acute Code(s): N39.0 - URINARY TRACT INFECTION, SITE NOT SPECIFIED (4) Atelectasis of both lungs Current Visit: Yes Status: Acute Code(s): J98.11 - ATELECTASIS (5) Sinus tachycardia Current Visit: Yes Status: Resolved Code(s): R00.0 - TACHYCARDIA, UNSPECIFIED (6) HTN (hypertension) Current Visit: Yes Status: Chronic Code(s): I10 - ESSENTIAL (PRIMARY) HYPERTENSION (7) Hyperlipidemia Current Visit: Yes Status: Chronic Code(s): E78.5 - HYPERLIPIDEMIA, UNSPECIFIED (8) Hypokalemia Current Visit: Yes Status: Acute Code(s): E87.6 - HYPOKALEMIA (9) Metabolic acidosis Current Visit: Yes Status: Acute Code(s): E87.20 - ACIDOSIS, UNSPECIFIED (10) Diarrhea Current Visit: Yes Status: Acute Code(s): R19.7 - DIARRHEA, UNSPECIFIED - Discharge Discharge Date: 08/26/24 Disposition: Home, Self-Care Condition: Good Prescriptions: New Amox Tr/Potass Clav. 875 mg [Augmentin 875-125 Tablet] 875 mg PO Q8H 10 Days #30 tablet Nystatin Powder 15 gm [Nystop Powder 15 gm] 1 gm TP BID PANTOPRAZOLE 40 mg Tablet [Protonix 40MG Tablet] 40 mg PO BID 30 Days #60 tab Continue Cyanocobalamin 500 Mcg [Vitamin B-12 500 MCG] 500 mcg PO DAILY Lisinopril 20 mg [Zestril 20 MG] 40 mg PO DAILY Carvedilol 12.5 mg [Coreg 12.5 mg] 12.5 mg PO BID Pravastatin Sodium 20 mg PO DAILY Amlodipine Besylate 5 mg [Norvasc 5 mg] 5 mg PO DAILY Acetaminophen [Tylenol Arthritis] 1,300 mg PO Q8HPRN PRN PRN Reason: Pain Aspirin [Adult Aspirin Regimen] 81 mg PO DAILY Nabumetone 1,000 mg PO DAILY Morphine Sulfate Cr 15 mg [Ms Contin 15 MG] 15 mg PO BID Additional Instructions: Call PCP Saturday for follow up lab work CMP Follow up with: PASTOR FRIEDMAN [COURTESY STAFF] - 09/07/24 8:40 am ([place] [facility]) BONIFACIO ELLSWORTH MD [Primary Care Provider] - 09/01/24 11:00 am ([place] [facility])
[2024-08-26 11:43] VITALS: PULSE 68; TEMP 97.3; O2SAT 94
[2024-08-26 11:54] VITALS: BP 116/55
== END 2024-08-26 12:20 | disposition home or self-care (01) ==
LOC: ED 09:33 → MED SURG 12:45
PROVIDERS: ADMIT Internal Medicine; ATTEND Internal Medicine
DX: K57.92 Diverticulitis of intestine, part unspecified, without perforation or abscess without bleeding (principal); N39.0 Urinary tract infection, site not specified; J98.11 Atelectasis; R00.0 Tachycardia, unspecified; I10 Essential (primary) hypertension; E78.5 Hyperlipidemia, unspecified; E87.6 Hypokalemia; E87.20 Acidosis, unspecified; R19.7 Diarrhea, unspecified; R11.2 Nausea with vomiting, unspecified; Z79.899 Other long term (current) drug therapy; Z85.51 Personal history of malignant neoplasm of bladder; Z85.41 Personal history of malignant neoplasm of cervix uteri
CPT/HCPCS: 36415; 74176; 80048; 80053; 81001; 82150; 82374; 82947; 83036; 83605; 83690; 83735; 85025; 85027; 85610; 87040; 87086; 87493; 93268; 94760; 96372; 99285; G0378; Q3014; 99284; J1956; J3480; A9270-GY; J3475

== ENCOUNTER 2024-08-28 17:32 | Emergency (ER) | payer MEDICARE ==
[2024-08-28 17:41] VITALS: TEMP 97.2
--- NOTE | 2024-08-28 17:55 | ERPHSYRPT ---
- History of Present Illness Time Seen by Provider: 08/28/24 17:40 Historian: patient Exam Limitations: no limitations Patient Subjective Stated Complaint: Pt states "I slipped in the tub and sat down. When they were helping me up my sternum popped and it hurts to cough and take a breath" Triage Nursing Assessment: Pt presented alert and oriented X 3, skin pwd. Pt able to speak in clear full sentences. Pt resting comfortable in the bed. PT in no apparent respiratory ditress. Physician History: About 1 hour ago pt was in her tub and fell back into the tub while trying to get out of the tub with resultant pain in the middle of her chest and an abrasion on her left elbow. Pt denies abdominal pain, nausea, vomiting, headache, neck pain, back pain. Aspirin Treatment Today: 81 mg x 1, provided at home Allergies/Adverse Reactions: Penicillins Allergy (Verified 08/23/24 09:47) ondansetron [From Zofran] Adverse Reaction (Verified 08/23/24 09:47) caused confusion, dizziness, etc. Home Medications: Acetaminophen [Tylenol Arthritis] 1,300 mg PO Q8HPRN PRN 08/23/24 [History] Amlodipine Besylate 5 mg [Norvasc 5 mg] 5 mg PO DAILY 08/23/24 [History] Aspirin [Adult Aspirin Regimen] 81 mg PO DAILY 08/23/24 [History] Carvedilol 12.5 mg [Coreg 12.5 mg] 12.5 mg PO BID 08/23/24 [History] Cyanocobalamin 500 Mcg [Vitamin B-12 500 MCG] 500 mcg PO DAILY 08/23/24 [History] Lisinopril 20 mg [Zestril 20 MG] 40 mg PO DAILY 08/23/24 [History] Morphine Sulfate Cr 15 mg [Ms Contin 15 MG] 15 mg PO BID 08/23/24 [ History] Nabumetone 1,000 mg PO DAILY 08/23/24 [History] Pravastatin Sodium 20 mg PO DAILY 08/23/24 [History] Hx Tetanus, Diphtheria Vaccination/Date Given: No Hx Influenza Vaccination/Date Given: No Hx Pneumococcal Vaccination/Date Given: No Immunizations Up to Date: No Travel Risk - International Travel Have you traveled outside of the country in past 3 weeks: No - Emerging Infectious Disease Are you exhibiting symptoms associated with any current EIDs: No Symptoms: Diarrhea, Shortness of Breath - Review of Systems Constitutional: No Fever Cardiac: Chest Pain Abdominal/Gastrointestinal: No Abdominal Pain, No Nausea, No Vomiting Musculoskeletal: No Back Pain, No Neck Pain Skin: Other (abrasion on left elbow today) Neurological: No Headache - Past Medical History Pertinent Past Medical History: Yes Neurological History: No Pertinent History ENT History: Cataracts Cardiac History: High Cholesterol, Hypertension Respiratory History: No Pertinent History Endocrine Medical History: No Pertinent History Musculoskeletal History: Degenerative Disk Disease, Osteoarthritis History: Bladder Cancer Psycho-Social History: No Pertinent History Female Reproductive Disorders: Cervical Cancer Other Medical History: 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 CURRENTLY NO SYMPTOMS. SX HX: HYSTERECTOMY - Past Surgical History Past Surgical History: Yes Neuro Surgical History: No Pertinent History Cardiac: No Pertinent History Respiratory: No Pertinent History Gastrointestinal: No Pertinent History Genitourinary: No Pertinent History Female Surgical History: Hysterectomy Other Surgical History: port a cath Significant Family History: no pertinent family hx - Social History Smoking Status: Former smoker Exposure to second hand smoke: No Drug Use: none Patient Lives Alone: Yes - Social Determinants of Health Will the patient participate in the screening: Yes Do you worry about a steady place to live?: No Do you have any problems with any of the following?: No known problems In the past 12 months,have you had to go without utilities?: No Transportation Issues: No Has anyone in your support network made you feel unsafe?: No Have you or anyone in your house had to go without enough: No - Nursing Vital Signs Nursing Vital Signs: Initial Vital Signs Temperature 97.2 F 08/28/24 17:33 Pulse Rate 97 H 08/28/24 17:33 Respiratory Rate 18 08/28/24 17:33 O2 Sat by Pulse Oximetry 94 L 08/28/24 17:33 Pain Scale Pain Intensity 6 - Physical Exam General Appearance: alert Eye Exam: eyes nml inspection Ears, Nose, Throat Exam: pharynx normal Neck Exam: normal inspection, non-tender Respiratory Exam: normal breath sounds, other (mid chest pain with movement) Cardiovascular Exam: normal heart sounds Gastrointestinal/Abdomen Exam: normal bowel sounds Back Exam: normal inspection, No vertebral tenderness Extremity Exam: tenderness (mild tenderness over a small left elbow abrasion) Neurologic Exam: alert, cooperative, sensation nml, No motor deficits Skin Exam: No cyanosis SpO2 Interpretation: normal SpO2: 94 O2 Delivery: Room Air - Course Nursing assessment & vital signs reviewed: Yes EKG Interpreted by Me: RATE (91), Sinus Rhythm, Left Evans Deviation, Other (QTc = 483) - Radiology Exams Left Elbow X-ray Interpretation: Interpreted by me, No Fracture - CT Exams Chest CT Interpretation: Discussed w/radiologist (Nothing acute. See rest of report.) Ordered Tests: Active Orders 24 hr Category Date Time Status Dish Technician STAT Care 08/28/24 17:53 Active EKG-ER Only STAT Care 08/28/24 17:51 Active EKG-ER Only STAT Care 08/28/24 19:01 Active IV Insertion STAT Care 08/28/24 17:51 Active CHEST WITHOUT CONTRAST [CT] Stat Exams 08/28/24 17:52 Taken ELBOW (MINIMUM 3 VIEWS) Stat Exams 08/28/24 17:55 Taken AMYLASE Stat Lab 08/28/24 18:30 Completed CBC W DIFF Stat Lab 08/28/24 18:30 Completed CMP Stat Lab 08/28/24 18:30 Completed LIPASE Stat Lab 08/28/24 18:30 Completed MAGNESIUM Stat Lab 08/28/24 18:30 Completed TROPONIN Q4H Lab 08/28/24 18:30 Completed TROPONIN Q4H Lab 08/28/24 22:00 Ordered TROPONIN Q4H Lab 08/29/24 02:00 Ordered Lab/Rad Data: Laboratory Result Diagrams 08/28/24 18:30 08/28/24 18:30 Laboratory Results 08/28/24 08/28/24 08/28/24 Range/Units 18:30 18:30 18:30 WBC 6.9 (3.98-10.04) x10^3/uL RBC 4.43 (3.93-5.22) x10^6/uL Hgb 13.1 (11.2-15.7) g/dL Hct 40.0 (34.1-44.9) % MCV 90.3 (79.4-94.8) fL MCH 29.6 (25.6-32.2) pg MCHC 32.8 (32.2-35.5) g/dL RDW 13.9 (11.7-14.4) % Plt Count 204 (182-369) x10^3/uL MPV 9.6 (9.4-12.3) fL Gran % 67.2 (34.0-71.1) % Immature Gran % (Auto) 1.0 H (0.001-0.429) % Nucleat RBC Rel Count 0.0 (0.00-0.2) % Eos # (Auto) 0.25 (0.04-0.36) x10^3/uL Immature Gran # (Auto) 0.07 H (0.001-0.031) x10^3u/L Absolute Lymphs (auto) 1.15 L (1.18-3.74) x10^3/uL Absolute Monos (auto) 0.75 (0.24-0.86) x10^3/uL Absolute Nucleated RBC 0.00 (0.00-0.012) x10^3u/L Lymphocytes % 16.7 L (19.3-51.7) % Monocytes % 10.9 (4.7-12.5) % Eosinophils % 3.6 (0.7-5.8) % Basophils % 0.6 (0.1-1.2) % Absolute Granulocytes 4.64 (1.56-6.13) x10^3/uL Basophils # 0.04 (0.01-0.08) x10^3/uL Sodium 132 L (135-145) mmol/L Potassium 3.8 (3.5-5.1) mmol/L Chloride 98 (98-107) mmol/L Carbon Dioxide 29 (22-30) mmol/L Anion Gap 8.9 (5-15) MEQ/L BUN 35 H (7-17) mg/dL Creatinine 1.48 H (0.52-1.04) mg/dL Estimated GFR 33.6 ML/MIN Glucose 98 (74-106) mg/dL Calcium 9.3 (8.4-10.2) mg/dL Magnesium 1.9 (1.6-2.3) mg/dL Total Bilirubin 0.60 (0.2-1.3) mg/dL AST 35 (14-36) U/L ALT 21 (0-35) U/L Alkaline Phosphatase 52 (38-126) U/L Troponin I < 0.012 (0.000-0.033) ng/mL Serum Total Protein 6.4 (6.3-8.2) g/dL Albumin 3.7 (3.5-5.0) g/dL Amylase 50 (30-110) U/L Lipase 117 (23-300) U/L - Progress Progress: improved Counseled pt/family regarding: lab results, diagnosis, need for follow-up, rad results Medical Desision Making - Diagnostic Testing Diagnostic test were ordered, analyzed, and reviewed by me: Yes Radiological Interpretation: Interpreted by me, Discussed w/ radiologist - Departure Departure Disposition: Home Clinical Impression: Chest pain, Abrasion of left elbow Condition: Stable Critical Care Time: No Referrals: BONIFACIO ELLSWORTH MD [Primary Care Provider] - Follow up/PCP as directed Instructions: Chest pain in adults - ED discharge instructions, Abrasions - ED discharge instructions Additional Instructions: Follow up with private doctor tomorrow. Apply neosporin & bandage to left elbow abrasion until healed.
[2024-08-28 18:45] LABS: Absolute Neutrophil Ct (ANC) 4.64 x10^3/uL (1.56-6.13); BASOPHIL % 0.6 % (0.1-1.2); Basophil (Absolute #) 0.04 x10^3/uL (0.01-0.08); Eosinophil % 3.6 % (0.7-5.8); Eosinophil (Absolute #) 0.25 x10^3/uL (0.04-0.36); Hemoglobin 13.1 g/dL (11.2-15.7); IMMATURE GRAN # 0.07 x10^3u/L (0.001-0.031); Lymphocyte (Absolute #) 1.15 x10^3/uL (1.18-3.74); Lymphocytes % 16.7 % (19.3-51.7); Mean Cell Volume 90.3 fL (79.4-94.8); Mean Corpuscular Hemoglobin 29.6 pg (25.6-32.2); Mean Corpuscular Hgb Concent. 32.8 g/dL (32.2-35.5); Mean Platelet Volume 9.6 fL (9.4-12.3); Monocyte (Absolute #) 0.75 x10^3/uL (0.24-0.86); Monocytes % 10.9 % (4.7-12.5); Neutrophil % 67.2 % (34.0-71.1); Platelet Count 204 x10^3/uL (182-369); Red Blood Count 4.43 x10^6/uL (3.93-5.22); Red Cell Distribution Width 13.9 % (11.7-14.4); White Blood Count 6.9 x10^3/uL (3.98-10.04)
[2024-08-28 18:50] LABS: ALBUMIN 3.7 g/dL (3.5-5.0); ANION GAP 8.9 MEQ/L (5-15); BILIRUBIN,TOTAL 0.6 mg/dL (0.2-1.3); Calcium 9.3 mg/dL (8.4-10.2); Creatinine 1 1.48 mg/dL (0.52-1.04); EST GLOMERULAR FILTRATION RATE 33.6 ML/MIN; MAGNESIUM 1.9 mg/dL (1.6-2.3); Potassium 3.8 mmol/L (3.5-5.1); Total Protein 6.4 g/dL (6.3-8.2)
[2024-08-28 19:32] VITALS: O2SAT 94
[2024-08-28] MEDS ORDERED: Sodium Chloride 0.9% 1000 ML 1,000 ML ONE (20:52)
[2024-08-28 20:53] VITALS: BP 121/68; PULSE 93; RESP 20
[2024-08-28] MEDS: Sodium Chloride 0.9% 1000 ML 1,000 ML IV STA (20:55)
--- NOTE | 2024-08-28 21:48 | XRAY ---
Indication: Status post fall. Comparison: None 3 view left elbow demonstrates osteopenia. No other bony, articular, or soft tissue abnormalities.
--- NOTE | 2024-08-28 21:53 | XRAY ---
Indication: Sternal pain following fall. Multiple contiguous axial images obtained through the chest without contrast. Comparison: None Lungs hyperinflated with scattered subsequent atelectasis/scarring, left greater than right. 4 mm posterior right lower lobe noncalcified nodule. No infiltrate, effusion, or pneumothorax. Heart enlarged with scattered coronary calcifications. Aorta is mildly arteriosclerotic without aneurysm. Right Port-A-Cath in situ. Tiny subcarinal and right hilar calcified nodes. No pathologic mediastinal lymphadenopathy. Small hiatal hernia. Bony thorax intact with osteopenia, mild/moderate degenerative changes throughout spine, mild dextroscoliosis, and remote T5/T12/L3 endplate fractures. Limited upper abdomen demonstrates previous CT proven 4.5 cm left adrenal adenoma. Incidental tiny hepatic/splenic calcified granulomas. Impression: 1. 4 mm right lower lobe noncalcified nodule, probably granulomatous as there is evidence for old granulomatous disease elsewhere. 2. Atelectasis/scarring, cardiomegaly, arteriosclerotic disease, hiatal hernia, chronic bony findings, left adrenal adenoma, and old granulomatous disease. 3. No acute findings on this noncontrast exam.
== END 2024-08-28 22:18 | disposition home or self-care (01) ==
LOC: ED 17:32
DX: R07.9 Chest pain, unspecified (principal); S50.312A Abrasion of left elbow, initial encounter; W18.2XXA Fall in (into) shower or empty bathtub, initial encounter; E78.5 Hyperlipidemia, unspecified; I10 Essential (primary) hypertension; Z79.891 Long term (current) use of opiate analgesic; Z79.899 Other long term (current) drug therapy
CPT/HCPCS: 36415; 71250; 73080; 80053; 82150; 83690; 83735; 84484; 85025; 93005; 93041; 99284; 99285

== ENCOUNTER 2024-08-29 07:00 | Emergency (ER) | payer MEDICARE ==
[2024-08-29 07:13] VITALS: TEMP 97
--- NOTE | 2024-08-29 07:40 | ERPHSYRPT ---
- History of Present Illness Time Seen by Provider: 08/29/24 07:20 Source: patient, EMS, old records Exam Limitations: no limitations Patient Subjective Stated Complaint: pt c/o of generalized weakness and pain in the sternum after a fall yesterday Triage Nursing Assessment: Pt brought to the ER by EMS, hypotenisive, tachycardic, rates pain in sternum as 7/10, pt fell in bathtub yesterday and when she was assisted up, a "pop" was felt and heard in her sternum, pt came to the ER and was evaluated and insisted on going home, pt returned this morning by EMS, pulses normal, skin n/w/d, no difficulty breathing, doesn't appear to be in any distress Physician History: This is an obese 88-year-old white female patient of Dr. Ellswroth who presents to the emergency department by the order checker service for complaints of weakness. Patient was seen in our emergency department on 08/28/2024 secondary to a fall in the bathtub where she required lifting assistance at home by family members and the patient felt a pop in her sternal area followed by chest pain with inspiration and coughing. The workup from yesterday's emergency department evaluation was reviewed by me. I interpreted the lab results and reviewed the CT scan of the chest without contrast report was interpreted by the radiologist. There was no obvious acute, emergent findings and the patient was discharged to home. This morning, the patient states her primary concern is that she is so weak and still needing assistance to move about. Recently, the patient was admitted into the hospital on 08/23/2024 and discharged on 08/26/2024. I reviewed that hospital admission. She was here for a GI bleed and had a significant urinary tract infection. Patient is unable to tell us if she has been taking the antibiotics as prescribed. Patient does see pain specialist Dr. Blanc. She has a history of hypertension, hyperlipidemia and arthritis. She is currently not having chest pain or shortness of breath. Her primary complaint is weakness. On 08/23/[address] scan that showed descending colon diverticulitis. The patient is unsure if she has been taking antibiotics. The family also states there not convinced she has been taking the antibiotics and she has had nausea vomiting at home. Timing/Duration: today Severity: moderate Associated Symptoms: weakness, No abdominal pain, No shortness of breath, No cough, No chest pain Allergies/Adverse Reactions: Penicillins Allergy (Verified 08/29/24 07:13) ondansetron [From Zofran] Adverse Reaction (Verified 08/29/24 07:13) caused confusion, dizziness, etc. Home Medications: Acetaminophen [Tylenol Arthritis] 1,300 mg PO Q8HPRN PRN 08/23/24 [History] Amlodipine Besylate 5 mg [Norvasc 5 mg] 5 mg PO DAILY 08/23/24 [History] Aspirin [Adult Aspirin Regimen] 81 mg PO DAILY 08/23/24 [History] Carvedilol 12.5 mg [Coreg 12.5 mg] 12.5 mg PO BID 08/23/24 [History] Cyanocobalamin 500 Mcg [Vitamin B-12 500 MCG] 500 mcg PO DAILY 08/23/24 [History] Lisinopril 20 mg [Zestril 20 MG] 40 mg PO DAILY 08/23/24 [History] Morphine Sulfate Cr 15 mg [Ms Contin 15 MG] 15 mg PO BID 08/23/24 [History] Nabumetone 1,000 mg PO DAILY 08/23/24 [History] Pravastatin Sodium 20 mg PO DAILY 08/23/24 [History] Hx Tetanus, Diphtheria Vaccination/Date Given: No Hx Influenza Vaccination/Date Given: No Hx Pneumococcal Vaccination/Date Given: No Travel Risk - International Travel Have you traveled outside of the country in past 3 weeks: No - Emerging Infectious Disease Are you exhibiting symptoms associated with any current EIDs: No Symptoms: Diarrhea, Shortness of Breath - Review of Systems Constitutional: Weakness Eyes: No Symptoms Ears, Nose, & Throat: No Symptoms Respiratory: No Symptoms Cardiac: No Symptoms Abdominal/Gastrointestinal: No Symptoms Genitourinary Symptoms: No Symptoms Musculoskeletal: No Symptoms Skin: No Symptoms Neurological: No Symptoms Psychological: No Symptoms Endocrine: No Symptoms Hematologic/Lymphatic: No Symptoms Immunological/Allergic: No Symptoms All Other Systems: Reviewed and Negative - Past Medical History Pertinent Past Medical History: Yes Neurological History: No Pertinent History ENT History: Cataracts Cardiac History: High Cholesterol, Hypertension Respiratory History: No Pertinent History Endocrine Medical History: No Pertinent History Musculoskeletal History: Degenerative Disk Disease, Osteoarthritis History: Bladder Cancer Psycho-Social History: No Pertinent History Female Reproductive Disorders: Cervical Cancer Other Medical History: 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 CURRENTLY NO SYMPTOMS. SX HX: HYSTERECTOMY - Past Surgical History Past Surgical History: Yes Neuro Surgical History: No Pertinent History Cardiac: No Pertinent History Respiratory: No Pertinent History Gastrointestinal: No Pertinent History Genitourinary: No Pertinent History Female Surgical History: Hysterectomy Other Surgical History: port a cath Significant Family History: no pertinent family hx - Social History Smoking Status: Former smoker Exposure to second hand smoke: No Drug Use: none Patient Lives Alone: Yes - Social Determinants of Health Will the patient participate in the screening: Yes Do you worry about a steady place to live?: No Do you have any problems with any of the following?: No known problems In the past 12 months,have you had to go without utilities?: No Transportation Issues: No Has anyone in your support network made you feel unsafe?: No Have you or anyone in your house had to go without enough: No - Nursing Vital Signs Nursing Vital Signs: Initial Vital Signs Temperature 97.0 F 08/29/24 07:01 Pulse Rate 106 H 08/29/24 07:01 Blood Pressure 99/64 08/29/24 07:01 O2 Sat by Pulse Oximetry 92 L 08/29/24 07:01 Pain Scale Pain Intensity 0 - Physical Exam General Appearance: no apparent distress, alert, obese Eye Exam: PERRL/EOMI, eyes nml inspection Ears, Nose, Throat Exam: normal ENT inspection, moist mucous membranes Neck Exam: normal inspection, non-tender, supple, full range of motion Respiratory Exam: normal breath sounds, lungs clear, airway intact, No chest tenderness, No respiratory distress Cardiovascular Exam: regular rate/rhythm, normal heart sounds, normal peripheral pulses Gastrointestinal/Abdomen Exam: soft, normal bowel sounds, No tenderness Pelvic Exam: not done Rectal Exam: not done Back Exam: normal inspection, normal range of motion, No CVA tenderness, No vertebral tenderness Extremity Exam: normal inspection, normal range of motion, pelvis stable Neurologic Exam: alert, oriented x 3, cooperative, community service representative II-XII nml as tested Skin Exam: normal color, warm, dry Lymphatic Exam: No adenopathy SpO2 Interpretation: borderline oxygenation SpO2: 92 - Course Nursing assessment & vital signs reviewed: Yes EKG Interpreted by Me: RATE (95), Sinus Rhythm, NORMAL AXIS, NORMAL INTERVALS, NORMAL QRS, Other (No acute ischemia.) Ordered Tests: Active Orders 24 hr Category Date Time Status EKG-ER Only STAT Care 08/29/24 07:41 Active IV Insertion STAT Care 08/29/24 07:41 Active Oxygen-ED Only Nasal Cannula 2 lpm Care 08/29/24 07:57 Active Pulse Oximetry (ED) STAT Care 08/29/24 07:41 Active CBC W DIFF Stat Lab 08/29/24 07:52 Completed CMP Stat Lab 08/29/24 07:52 Completed CULTURE,URINE Stat Lab 08/29/24 07:52 Received MAGNESIUM Stat Lab 08/29/24 07:52 Completed NT PRO BNPII Stat Lab 08/29/24 07:52 Completed TROPONIN Q4H Lab 08/29/24 07:52 Completed TROPONIN Q4H Lab 08/29/24 11:45 Ordered TROPONIN Q4H Lab 08/29/24 15:45 Ordered UA W/RFX UR CULTURE Stat Lab 08/29/24 07:52 Completed Medication Summary Generic Name Dose Route Start Last Admin Trade Name Freq PRN Reason Stop Dose Admin Sodium Chloride 1,000 mls @ 100 mls/hr 08/29/24 09:15 08/29/24 09:05 Sodium Chloride 0.9% 1000 Ml IV 09/28/24 09:14 100 mls/hr .Q10H ISABEL Administration Discontinued Medications Generic Name Dose Route Start Last Admin Trade Name Freq PRN Reason Stop Dose Admin Levofloxacin/Dextrose 500 mg in 100 mls @ 100 mls/hr 08/29/24 09:01 08/29/24 10:06 Levofloxacin 500mg/100ml D5w IV 08/29/24 10:00 Infused STAT STA Infusion Levofloxacin/Dextrose Confirm 08/29/24 09:04 Levofloxacin 500mg/100ml D5w Administered 08/29/24 09:05 Dose 500 mg in 100 mls @ ud IV .STK-MED ONE Metronidazole 500 mg in 100 mls @ 200 mls/hr 08/29/24 09:09 08/29/24 10:42 Flagyl 500 Mg Ivpb IV 08/29/24 09:38 Infused STAT STA Infusion Metronidazole Confirm 08/29/24 10:01 Flagyl 500 Mg Ivpb Administered 08/29/24 10:02 Dose 500 mg in 100 mls @ ud IV .STK-MED ONE Lab/Rad Data: Laboratory Result Diagrams 08/29/24 07:52 08/29/24 07:52 Laboratory Results 08/29/24 08/29/24 08/29/24 Range/Units 07:52 07:52 07:52 WBC 6.2 (3.98-10.04) x10^3/uL RBC 4.28 (3.93-5.22) x10^6/uL Hgb 12.5 (11.2-15.7) g/dL Hct 38.1 (34.1-44.9) % MCV 89.0 (79.4-94.8) fL MCH 29.2 (25.6-32.2) pg MCHC 32.8 (32.2-35.5) g/dL RDW 14.0 (11.7-14.4) % Plt Count 209 (182-369) x10^3/uL MPV 10.0 (9.4-12.3) fL Gran % 58.5 (34.0-71.1) % Immature Gran % (Auto) 0.5 H (0.001-0.429) % Nucleat RBC Rel Count 0.0 (0.00-0.2) % Eos # (Auto) 0.36 (0.04-0.36) x10^3/uL Immature Gran # (Auto) 0.03 (0.001-0.031) x10^3u/L Absolute Lymphs (auto) 1.32 (1.18-3.74) x10^3/uL Absolute Monos (auto) 0.84 (0.24-0.86) x10^3/uL Absolute Nucleated RBC 0.00 (0.00-0.012) x10^3u/L Lymphocytes % 21.2 (19.3-51.7) % Monocytes % 13.5 H (4.7-12.5) % Eosinophils % 5.8 (0.7-5.8) % Basophils % 0.5 (0.1-1.2) % Absolute Granulocytes 3.64 (1.56-6.13) x10^3/uL Basophils # 0.03 (0.01-0.08) x10^3/uL Sodium 135 (135-145) mmol/L Potassium 4.0 (3.5-5.1) mmol/L Chloride 102 (98-107) mmol/L Carbon Dioxide 24 (22-30) mmol/L Anion Gap 12.9 (5-15) MEQ/L BUN 30 H (7-17) mg/dL Creatinine 1.04 (0.52-1.04) mg/dL Estimated GFR 51.4 ML/MIN Glucose 85 (74-106) mg/dL Calcium 8.8 (8.4-10.2) mg/dL Magnesium 1.7 (1.6-2.3) mg/dL Total Bilirubin 0.70 (0.2-1.3) mg/dL AST 38 H (14-36) U/L ALT 20 (0-35) U/L Alkaline Phosphatase 45 (38-126) U/L Troponin I < 0.012 (0.000-0.033) ng/mL NT-Pro-B Natriuret Pep 1010 (<300) pg/mL Serum Total Protein 5.9 L (6.3-8.2) g/dL Albumin 3.3 L (3.5-5.0) g/dL Urine Color (Yellow) Urine Appearance (Clear) Urine pH (4.6-8.0) Ur Specific [place] (1.005-1.030) Urine Protein (Negative) Urine Glucose (UA) (Negative) mg/dL Urine Ketones (Negative) Urine Blood (Negative) Urine Nitrite (Negative) Urine Bilirubin (Negative) Urine Urobilinogen (0.2) mg/dL Ur Leukocyte Esterase (Negative) U Hyaline Cast (Auto) (0-2) /LPF Urine Microscopic RBC (0-5) /HPF Urine Microscopic WBC (0-5) /HPF Ur Epithelial Cells (None Seen) /HPF Urine Bacteria (None Seen) /HPF Urine Culture Reflexed (NO) 08/29/24 Range/Units 07:52 WBC (3.98-10.04) x10^3/uL RBC (3.93-5.22) x10^6/uL Hgb (11.2-15.7) g/dL Hct (34.1-44.9) % MCV (79.4-94.8) fL MCH (25.6-32.2) pg MCHC (32.2-35.5) g/dL RDW (11.7-14.4) % Plt Count (182-369) x10^3/uL MPV (9.4-12.3) fL Gran % (34.0-71.1) % Immature Gran % (Auto) (0.001-0.429) % Nucleat RBC Rel Count (0.00-0.2) % Eos # (Auto) (0.04-0.36) x10^3/uL Immature Gran # (Auto) (0.001-0.031) x10^3u/L Absolute Lymphs (auto) (1.18-3.74) x10^3/uL Absolute Monos (auto) (0.24-0.86) x10^3/uL Absolute Nucleated RBC (0.00-0.012) x10^3u/L Lymphocytes % (19.3-51.7) % Monocytes % (4.7-12.5) % Eosinophils % (0.7-5.8) % Basophils % (0.1-1.2) % Absolute Granulocytes (1.56-6.13) x10^3/uL Basophils # (0.01-0.08) x10^3/uL Sodium (135-145) mmol/L Potassium (3.5-5.1) mmol/L Chloride (98-107) mmol/L Carbon Dioxide (22-30) mmol/L Anion Gap (5-15) MEQ/L BUN (7-17) mg/dL Creatinine (0.52-1.04) mg/dL Estimated GFR ML/MIN Glucose (74-106) mg/dL Calcium (8.4-10.2) mg/dL Magnesium (1.6-2.3) mg/dL Total Bilirubin (0.2-1.3) mg/dL AST (14-36) U/L ALT (0-35) U/L Alkaline Phosphatase (38-126) U/L Troponin I (0.000-0.033) ng/mL NT-Pro-B Natriuret Pep (<300) pg/mL Serum Total Protein (6.3-8.2) g/dL Albumin (3.5-5.0) g/dL Urine Color Dark Yellow A (Yellow) Urine Appearance Clear (Clear) Urine pH 5.0 (4.6-8.0) Ur Specific [place] 1.020 (1.005-1.030) Urine Protein Trace A (Negative) Urine Glucose (UA) Negative (Negative) mg/dL Urine Ketones 15 A (Negative) Urine Blood Negative (Negative) Urine Nitrite Negative (Negative) Urine Bilirubin Negative (Negative) Urine Urobilinogen 0.2 (0.2) mg/dL Ur Leukocyte Esterase Small A (Negative) U Hyaline Cast (Auto) NONE SEEN (0-2) /LPF Urine Microscopic RBC 0-2 (0-5) /HPF Urine Microscopic WBC 0-2 (0-5) /HPF Ur Epithelial Cells Few (None Seen) /HPF Urine Bacteria Few A (None Seen) /HPF Urine Culture Reflexed YES (NO) - Progress Progress: improved, re-examined Progress Note: 08/29/24 07:52 My medical decision making and the assignment of moderate complexity to this patient's medical issue today is based on review of the patient's past medical history, review the patient's medication list, reviewed patient drug allergy list, history present illness and physical findings on examination. The workup in this patient includes placement of intravenous line, CBC, CMP, urinalysis, viral swabs, monotest, twelve-lead EKG, troponin level. Differential diagnosis includes but is not limited to dehydration, urinary tract infection, electrolyte abnormalities, arrhythmia, myocardial infarction 08/29/24 09:06 I interpreted the patient's laboratory data results. Based on the laboratory data results, patient does have a mild urinary tract infection and evidence of mild dehydration. 08/29/24 09:48 There are no beds in our facility at this time. The ER nurses contacted the floor nurses who spoke with the nurse practitioners rounding on patients at this time. There are no anticipated discharges as of now. I spoke with the patient's son and updated him on the patient's medical findings and our bed situation. He would like to try [facility] followed by a [facility] but does not wish to travel further than [place]. I do think the patient would benefit from IV hydration and IV antibiotics. We will perform the IV hydration IV antibiotics at this time. If the patient is stronger and there are no beds available at the above facilities, we will revisit the possibility of patient being discharged to home. 08/29/24 10:17 I spoke with the hospitalist at [facility]. They do accept her in transfer for generalized weakness, UTI, diverticulitis, PT/OT and eval for longterm placement. However, they do not have any beds at this time. They will contact us if and when they have a bed available. 08/29/24 11:11 I spoke with the emergency room physician at [facility] and explained to him that we have no beds in our facility and there are no beds at [facility] and the patient would benefit from intravenous fluids, intravenous antibiotics, OT/PT and longterm placement evaluation. I reviewed the patient history, presenting complaint, workup performed and its results. He accepts the patient in transfer. Counseled pt/family regarding: lab results, diagnosis Medical Desision Making - Independent Historian Additional History obtained from: Family - Discussion of managment Reviewed:: Need for additional workup - Diagnostic Testing Diagnostic test were ordered, analyzed, and reviewed by me: Yes Radiological Interpretation: Reviewed by me, Teleradiologist Report - Risk of complications The pt has a high risk of morbidity or mortality based on: Decision regarding hospitilization or escalation of hosp level of care - Departure Departure Disposition: Transfer Clinical Impression: Diverticulitis, UTI (urinary tract infection), Generalized weakness, Dehydration Condition: Fair Critical Care Time: No Referrals: BONIFACIO ELLSWORTH MD [Primary Care Provider] - Follow up/PCP as directed
[2024-08-29 07:55] LABS: Absolute Neutrophil Ct (ANC) 3.64 x10^3/uL (1.56-6.13); BASOPHIL % 0.5 % (0.1-1.2); Basophil (Absolute #) 0.03 x10^3/uL (0.01-0.08); Eosinophil % 5.8 % (0.7-5.8); Eosinophil (Absolute #) 0.36 x10^3/uL (0.04-0.36); Hematocrit 38.1 % (34.1-44.9); Hemoglobin 12.5 g/dL (11.2-15.7); IMMATURE GRAN # 0.03 x10^3u/L (0.001-0.031); IMMATURE GRAN % 0.5 % (0.001-0.429); Lymphocyte (Absolute #) 1.32 x10^3/uL (1.18-3.74); Lymphocytes % 21.2 % (19.3-51.7); Mean Corpuscular Hemoglobin 29.2 pg (25.6-32.2); Mean Corpuscular Hgb Concent. 32.8 g/dL (32.2-35.5); Monocyte (Absolute #) 0.84 x10^3/uL (0.24-0.86); Monocytes % 13.5 % (4.7-12.5); Neutrophil % 58.5 % (34.0-71.1); Platelet Count 209 x10^3/uL (182-369); Red Blood Count 4.28 x10^6/uL (3.93-5.22); White Blood Count 6.2 x10^3/uL (3.98-10.04)
[2024-08-29 08:10] LABS: ALBUMIN 3.3 g/dL (3.5-5.0); ANION GAP 12.9 MEQ/L (5-15); BILIRUBIN,TOTAL 0.7 mg/dL (0.2-1.3); Calcium 8.8 mg/dL (8.4-10.2); Creatinine 1 1.04 mg/dL (0.52-1.04); EST GLOMERULAR FILTRATION RATE 51.4 ML/MIN; MAGNESIUM 1.7 mg/dL (1.6-2.3); Total Protein 5.9 g/dL (6.3-8.2)
[2024-08-29 08:20] LABS: NT PRO BNPII 1010 pg/mL (<300); TROPONIN < 0.012 ng/mL (0.000-0.033)
[2024-08-29 08:31] LABS: Appearance Clear (Clear); Bilirubin Negative (Negative); Blood Negative (Negative); Epithelial Cells Few /HPF (None Seen); Glucose, Urine Negative (Negative); Hyaline Casts NONE SEEN /LPF (0-2); Ketones 15 (Negative); Leukocyte Esterase Small (Negative); Nitrite Negative (Negative); Protein,Urine Dip Trace (Negative); RBC 0-2 /HPF (0-5); Urobilinogen 0.2 mg/dL (0.2); WBC 0-2 /HPF (0-5)
[2024-08-29 08:48] LABS: Bacteria Few /HPF (None Seen)
[2024-08-29] MEDS ORDERED: Levofloxacin 500MG/100ML D5W 500 MG/100 ML BAG IV ONE (09:04)
[2024-08-29] MEDS ORDERED: Sodium Chloride 0.9% 1000 ML 1,000 ML ONE (09:04)
[2024-08-29] MEDS: Sodium Chloride 0.9% 1000 ML 1,000 ML IV SCH (09:05)
[2024-08-29] MEDS: Levofloxacin 500MG/100ML D5W 500 MG/100 ML BAG IV STA (09:05)
[2024-08-29] MEDS ORDERED: FLAGYL 500 MG IVPB 500 MG/100 ML BAG IV ONE (10:01)
[2024-08-29] MEDS: FLAGYL 500 MG IVPB 500 MG/100 ML BAG IV STA (10:07)
[2024-08-29 12:47] VITALS: BP 89/60; PULSE 90; RESP 16; O2SAT 94
== END 2024-08-29 12:45 | disposition short-term general hospital (02) ==
LOC: ED 07:00
DX: K57.92 Diverticulitis of intestine, part unspecified, without perforation or abscess without bleeding (principal); N39.0 Urinary tract infection, site not specified; R53.1 Weakness; E86.0 Dehydration; I10 Essential (primary) hypertension; E78.5 Hyperlipidemia, unspecified; Z79.891 Long term (current) use of opiate analgesic; Z79.899 Other long term (current) drug therapy
CPT/HCPCS: 36415; 80053; 81001; 83735; 83880; 84484; 85025; 87086; 93005; 94760; 96360; 96365; 96374; 99285; J1956